=== PATIENT | female | born 1990 | race Caucasian/White ===

== ENCOUNTER 2017-08-21 17:08 | Emergency (ER) | payer OTHER ==
[2017-08-21 19:32] LABS: BEDSIDE GLUCOSE 60 MG/DL (70-105)
== END 2017-08-21 19:53 | disposition home or self-care (01) ==
LOC: M ED 17:08
DX: O9A.211 Injury, poisoning and certain other consequences of external causes complicating pregnancy, first trimester (principal); S39.011A Strain of muscle, fascia and tendon of abdomen, initial encounter; X50.0XXA Overexertion from strenuous movement or load, initial encounter; Y92.89 Other specified places as the place of occurrence of the external cause; O24.011 Pre-existing type 1 diabetes mellitus, in pregnancy, first trimester; Z3A.12 12 weeks gestation of pregnancy
CPT/HCPCS: 76801

== ENCOUNTER → 2017-09-05 | Outpatient (REF) | payer OTHER ==
[2017-09-05 23:53] LABS: CHLAMYDIA DNA AMPLIFICATION NEGATIVE (NEGATIVE); GC DNA AMPLIFICATION NEGATIVE (NEGATIVE)
== END ==
LOC: M LAB REF 17:05
DX: O24.011 Pre-existing type 1 diabetes mellitus, in pregnancy, first trimester (principal); Z3A.00 Weeks of gestation of pregnancy not specified

== ENCOUNTER 2019-09-09 11:20 | Emergency (ER) | payer OTHER ==
[~2019-09-09] VITALS: Ht 162.6 cm; Wt 74.1 kg
[~2019-09-09 11:20] MED LIST: AVEL1TAB2; FOLI400T5 PO; HUMULIN; NOVOLOG100 MG/ML; PREN1TAB11 PO; PREN200C PO; ZOFR4TAB14 PO
[2019-09-09 12:00] LABS: BASO # 0.1 10^3/uL (0.0-0.2); BASO % 0.4 % (0.0-1.0); HEMATOCRIT 44.7 % (36.0-47.0); HEMOGLOBIN 15.2 g/dl (12.0-15.5); LYMPH # 1.3 10^3/uL (1.5-5.0); MEAN CORPUSCULAR HEMOGLOBIN 28.9 pg (27.0-33.0); MONO # 0.5 10^3/uL (0.0-0.8); MONO % 2.2 % (0.0-5.0); NEUTROPHILS # 20.3 10^3/uL (1.5-8.5); NEUTROPHILS % 91.1 % (36.0-66.0); PLATELET COUNT, AUTOMATED 391 10^3/uL (150-450); RED BLOOD COUNT 5.26 10^6/uL (4.00-5.40); WHITE BLOOD COUNT 22.3 10^3/uL (4.0-10.0)
[2019-09-09] MEDS ORDERED: diphenhydrAMINE 50MG/ML VIAL (J1200) IV STA (12:12)
[2019-09-09] MEDS ORDERED: METOCLOPRAMIDE INJ 10MG/2ML VIAL (J2765 PER 1) IV ONE (12:15)
[2019-09-09] MEDS ORDERED: NS 1,000 ML IV ONE (12:15)
[2019-09-09 12:31] LABS: VENOUS BASE EXCESS -1.9 (-2.0-2.0); VENOUS HCO3 20.3 MEQ/L (23.0-27.0); VENOUS O2 SATURATION 93.3 % (60.0-80.0); VENOUS PARTIAL PRESSURE CO2 28.8 mmHg (38.0-50.0); VENOUS PARTIAL PRESSURE O2 59.1 mmHg (30.0-50.0); VENOUS PH 7.467 UNITS (7.330-7.430); VENOUS STANDARD HCO3 22.8 MEQ/L; VENOUS TOTAL CO2 21.2 MEQ/L (24.0-28.0)
--- NOTE | 2019-09-09 12:37 | REP ---
Clinical: Acute head injury . Comparison: None . Findings: The ventricles, sulci, and cisterns are normal in position and appearance. Garibay-white differentiation is maintained. No acute intracranial hemorrhage, mass/mass effect, pathology or trauma/injury. No evidence for acute infarction. No extra-axial fluid collection. Calvarium is intact. Paranasal sinuses and mastoid air cells are clear. Impression: Normal noncontrast head CT. No evidence for acute intracranial pathology or trauma/injury. Electronically Signed by Kevin Islas MD 09/09/2019 12:28 P
[2019-09-09 13:19] LABS: AMPHETAMINES LEVEL URINE NEGATIVE (NEGATIVE); BARBITURATES URINE NEGATIVE (NEGATIVE); BENZODIAZEPINES URINE NEGATIVE (NEGATIVE); CANNABINOIDS URINE POSITIVE (NEGATIVE); COCAINE METABOLITE URINE NEGATIVE (NEGATIVE); METHADONE URINE NEGATIVE (NEGATIVE); OPIATES URINE NEGATIVE (NEGATIVE); PHENCYCLIDINE URINE NEGATIVE (NEGATIVE)
[2019-09-09] MEDS ORDERED: KETOROLAC 30 MG/ML 1ML VIAL IV ONE (13:30)
[2019-09-09 14:46] VITALS: BP 115/69
--- NOTE | 2019-09-10 08:00 | ECGEPIP ---
[facility] - ED Test Date: 2019-09-09 Pat Name: HAYDEN ALEXANDER Department: Room: - Gender: Female [employer]: [facility] : 1990 Requested By: Favian Abdul Order Number: [id number] Reading MD: Cassie Brandon Measurements Intervals [place] Rate: 78 P: 24 FL: 129 QRS: 45 QRSD: 99 T: 36 QT: 414 QTc: 472 Interpretive Statements SINUS RHYTHM DELAYED R PROGRESSION No prior Electronically Signed on 09-10-2019 8:00:11 EDT by Cassie Brandon
== END 2019-09-09 15:14 | disposition home or self-care (01) ==
LOC: M ED 11:20
DX: E11.649 Type 2 diabetes mellitus with hypoglycemia without coma (principal); S09.90XA Unspecified injury of head, initial encounter; X58.XXXA Exposure to other specified factors, initial encounter; Y92.89 Other specified places as the place of occurrence of the external cause; Z79.4 Long term (current) use of insulin
CPT/HCPCS: 70450; 80047; 80307; 81001; 82803; 84702; 85025; 93005; 96361; 96374; 96375; 99284; J1200; J1885; J2765

== ENCOUNTER 2020-12-12 00:33 | Emergency (ER) | payer OTHER ==
[~2020-12-12] VITALS: Ht 162.6 cm; Wt 64.4 kg
[2020-12-12 00:34] VITALS: BP 143/84
--- OUTSIDE RECORDS SUMMARY | 2020-12-12 00:41 | CCD ---
Author Author [facility] Organization [facility] Address Unknown Phone Unavailable Care Team Providers Care Crematory Attendant Name Role Phone PERRY CASANOVA Unavailable Unavailable Venkata, J Kelly PACKAGE DRIER Unavailable Unavailable Venkata, J Kelly PACKAGE DRIER Unavailable Unavailable Venkata, J Kelly PACKAGE DRIER Unavailable Unavailable Venkata, J Kelly PACKAGE DRIER Unavailable Unavailable Venkata, J Kelly PACKAGE DRIER Unavailable Unavailable Venkata, J Kelly PACKAGE DRIER Unavailable Unavailable Venkata, J Kelly PACKAGE DRIER Unavailable Unavailable Venkata, J Kelly PACKAGE DRIER Unavailable Unavailable Venkata, J Kelly PACKAGE DRIER Unavailable Unavailable Venkata, J Kelly PACKAGE DRIER Unavailable Unavailable Venkata, J Kelly PACKAGE DRIER Unavailable Unavailable Venkata, J Kelly PACKAGE DRIER Unavailable Unavailable Venkata, J Kelly PACKAGE DRIER Unavailable Unavailable Venkata, J Kelly PACKAGE DRIER Unavailable Unavailable Venkata, J Kelly PACKAGE DRIER Unavailable Unavailable Venkata, J Kelly PACKAGE DRIER Unavailable Unavailable Venkata, J Kelly PACKAGE DRIER Unavailable Unavailable Venkata, J Kelly PACKAGE DRIER Unavailable Unavailable Venkata, J Kelly PACKAGE DRIER Unavailable Unavailable Venkata, J Kelly PACKAGE DRIER Unavailable Unavailable Venkata, J Kelly PACKAGE DRIER Unavailable Unavailable Venkata, J Kelly PACKAGE DRIER Unavailable Unavailable Venkata, J Kelly PACKAGE DRIER Unavailable Unavailable Venkata, J Kelly PACKAGE DRIER Unavailable Unavailable Venkata, J Kelly PACKAGE DRIER Unavailable Unavailable Venkata, J Kelly PACKAGE DRIER Unavailable Unavailable Venkata, J Kelly PACKAGE DRIER Unavailable Unavailable Venkata, J Kelly PACKAGE DRIER Unavailable Unavailable Venkata, J Kelly PACKAGE DRIER Unavailable Unavailable Venkata, J Kelly PACKAGE DRIER Unavailable Unavailable Venkata, J Kelly PACKAGE DRIER Unavailable Unavailable Venkata, J Kelly PACKAGE DRIER Unavailable Unavailable Venkata, J Kelly PACKAGE DRIER Unavailable Unavailable Venkata, J Kelly PACKAGE DRIER Unavailable Unavailable Venkata, J Kelly PACKAGE DRIER Unavailable Unavailable Venkata, J Kelly PACKAGE DRIER Unavailable Unavailable Venkata, J Kelly PACKAGE DRIER Unavailable Unavailable Venkata, J Kelly PACKAGE DRIER Unavailable Unavailable Venkata, J Kelly PACKAGE DRIER Unavailable Unavailable Venkata, J Kelly PACKAGE DRIER Unavailable Unavailable JuarezMaryannehi Unavailable Unavailable JuarezMaryannehi Unavailable Unavailable Ingris Pizarro MD Unavailable Unavailable JuarezMaryannehi Unavailable Unavailable JuarezIngris MD Unavailable Unavailable Ingris Pizarro MD Unavailable Unavailable JuarezMaryannehi Unavailable Unavailable Ingris Pizarro MD Unavailable Unavailable JuarezMaryannehi Unavailable Unavailable JuarezIngris MD Unavailable Unavailable JuarezIngris MD Unavailable Unavailable JuarezMaryannehi Unavailable Unavailable JuarezIngris MD Unavailable Unavailable JuarezIngris MD Unavailable Unavailable JuarezMaryannehi Unavailable Unavailable JuarezIngris MD Unavailable Unavailable JuarezMaryannehi Unavailable Unavailable JuarezMaryannehi Unavailable Unavailable JuarezIngris MD Unavailable Unavailable JuarezIngris MD Unavailable Unavailable Juarez Ingris Unavailable Unavailable JuarezMaryannehi Unavailable Unavailable JuarezMaryannehi Unavailable Unavailable JuarezMaryannehi Unavailable Unavailable JuarezMaryannehi Unavailable Unavailable JuarezMaryannehi Unavailable Unavailable JuarezIngris MD Unavailable Unavailable JuarezMaryannehi Unavailable Unavailable JuarezMaryannehi Unavailable Unavailable Juarez, Ingris MD Unavailable Unavailable Juarez, Ingris MD Unavailable Unavailable Juarez, Ingris MD Unavailable Unavailable Juarez, Ingris MD Unavailable Unavailable Juarez, Ingris MD Unavailable Unavailable Juarez, Ingris MD Unavailable Unavailable Juarez, Ingris MD Unavailable Unavailable Juarez, Ingris MD Unavailable Unavailable Juarez, Ingris MD Unavailable Unavailable Juarez, Ingris MD Unavailable Unavailable Juarez, Ingris MD Unavailable Unavailable Juarez, Ingris MD Unavailable Unavailable Juarez, Ingris MD Unavailable Unavailable Juarez, Ingris MD Unavailable Unavailable Juarez, Ingris MD Unavailable Unavailable Juarez, Ingris MD Unavailable Unavailable Re-disclosure Warning The records that you are about to access may contain information from federally-assisted alcohol or drug abuse programs. If such information is present, then the following federally mandated warning applies: This information has been disclosed to you from records protected by federal confidentiality rules (42 CFR part 2). The federal rules prohibit you from making any further disclosure of this information unless further disclosure is expressly permitted by the written consent of the person to whom it pertains or as otherwise permitted by 42 CFR part 2. A general authorization for the release of medical or other information is NOT sufficient for this purpose. The Federal rules restrict any use of the information to criminally investigate or prosecute any alcohol or drug abuse patient.The records that you are about to access may contain highly sensitive health information, the redisclosure of which is protected by Article 27-F of the [facility] Public Health law. If you continue you may have access to information: Regarding HIV / AIDS; Provided by facilities licensed or operated by the [facility] Office of Mental Health; or Provided by the [facility] Office for People With Developmental Disabilities. If such information is present, then the following [facility] mandated warning applies: This information has been disclosed to you from confidential records which are protected by state law. State law prohibits you from making any further disclosure of this information without the specific written consent of the person to whom it pertains, or as otherwise permitted by law. Any unauthorized further disclosure in violation of state law may result in a fine or nursing home sentence or both. A general authorization for the release of medical or other information is NOT sufficient authorization for further disc losure. Allergies and Adverse Reactions Type Description Substance Reaction Status Data Source(s ) Propensity to adverse reactions NO KNOWN ALLERGIES NO KNOWN ALLERGIES [facility] Family History Family Member Name Family Member Gender Family Member Status Date o f Status Description Data Source(s) Unknown Female Problem [facility] ([facility]) Encounters Encounter Providers Location Date Indications Data Source(s ) [place] [address] [place] [address] 11/14/2020 12:00:00 AM EDT eCW1 ([facility]) Outpatient Attender: Kelly Hastings NP 10/12/2020 12:00:00 AM [facility] Outpatient Attender: Kelly Hastings NP [id number] 08/2020 12:00:00 AM EDT - 06/24/2020 10:20:08 AM EDT Type 1 diabetes mellitus with hyperglycemia [facility] Type 1 diabetes mellitus with hyperglyce eloisa Outpatient Attender: Kelly Hastings NP 04/22/2020 12:00:00 AM [facility] Outpatient Attender: Kelly Hastings NP 04/19/2020 12:00:00 AM [facility] Outpatient Attender: PERRY Saucedaender: Ingris Pizarro MD 12/21/2019 12:00:00 AM [facility] Outpatient Attender: Kelyl Hastings NP 12/16/2019 12:00:00 AM [facility] Medications Medication Brand Name Start Date Product Form Dose Route Admi nistrative Instructions Pharmacy Instructions Status Indications Reaction Description Data Source(s) Clobetasol Propionate 0.5 MG/ML Topical Cream Clobetas ol Propionate 0.05 % Clobetasol Propionate 0.05 % 11/14/2020 12:00:00 AM EDT 1.0 {applicat ion} active Clobetasol Propionate 0.05 % eCW1 ([facility]) Contour Next Test In Vitro Strip (glucose blood) [id number] 5 06/24/2020 12:00:00 AM EDT active Type 1 diabetes mellitus with hyperglycemia Use as directed to check blood glucose 6 times daily. Dx E10.65 [facility] Type 1 diabetes mellitus with hyperglyce eloisa Pen Thorndike 31G X 5 MM [id number] 06/24/2020 12:00:00 AM EDT 1 {each} Does not apply active Type 1 diabetes mellitus with hyperg lycemia 1 each by Does not apply route nightly Use as directed once daily with basaglar injection incase of pump failure. Dx E10.65 [facility] Type 1 diabetes mellitus with hyperglyce eloisa Acetone (Urine) Test In Vitro Strip [id number] 06/24/2020 12:00:00 AM EDT active Type 1 diabetes mellitus with hyperglycemia Ketostix. Check urine ketones when glucose above 250 mg/dl for two tests in a row and/or with illness. MDD:10. Dx code: E10.65 [facility] Type 1 diabetes mellitus with hyperglyce eloisa BD Insulin Syringe U/F 30G X 1/2" 0.5 ML (Insulin Syri nge-Needle U-100) [id number] 06/24/2020 12:00:00 AM EDT a ctive Type 1 diabetes mellitus with hyperglycemia Use as directed. USE DIRECTED FOUR TI MES A DAY [facility] Type 1 diabetes mellitus with hyperglyce eloisa Insulin Lispro 100 UNT/ML Injectable Tresa ution Insulin Lispro 100 UNIT/ML Subcutaneous Solution (Admelog) Insulin Lispro 100 UNIT/ML Subcutaneous Solution (Admelog) 05/03/2020 12:00:00 AM EDT [facility] Type 1 diabetes mellitus with hyperglycemia Subq continual infusion via insuiln pump. Max Daily Dose inclusive of priming and titration: 80 units. Dx code:E10.65 [facility] Type 1 diabetes mellitus with hyperglyce eloisa Contour Next Test In Vitro Strip (glucose blood) [id number] 5 05/03/2020 12:00:00 AM EDT aborted Type 1 diabetes mellitus with hyperglycemia Use as directed to check blood glucose 6 times daily. Dx E10.65 [facility] Type 1 diabetes mellitus with hyperglyce eloisa Basaglar KwikPen 100 UNIT/ML Subcutaneou s Solution Pen-injector (insulin glargine) [id number] 05/03/2020 12:00:00 AM EDT active Type 1 diabetes mellitus with hyperglycemia In case of pump f ailure, inject 35 units into skin nightly. MDD 60 units with titration and priming. Dx:E10.65 [facility] Type 1 diabetes mellitus with hyperglyce eloisa Lancets 30G [id number] 04/26/2020 12:00:00 AM EST active Type 1 diabetes mellitus with hyperglycemia Use as directed. Use as directed to test 6 times daily. Dx: E10.65. [facility] Type 1 diabetes mellitus with hyperglyce eloisa BD Insulin Syringe U/F 30G X 1/2" 0.5 ML (Insulin Syri nge-Needle U-100) [id number] 04/26/2020 12:00:00 AM EST memo borted Type 1 diabetes mellitus with hyperglycemia USE DIRECTED FOUR TIMES A DAY [facility] Type 1 diabetes mellitus with hyperglyce eloisa Pen Thorndike 31G X 5 MM [id number] 11/24/2019 12:00:00 AM EDT 1 {each} Does not apply aborted Type 1 diabetes mellitus with hyperg lycemia 1 each by Does not apply route nightly Use as directed once daily with basaglar injection incase of pump failure. Dx E10.65 [facility] Type 1 diabetes mellitus with hyperglyce eloisa Acetone (Urine) Test In Vitro Strip [id number] 09/14/2019 12:00:00 AM EDT aborted Type 1 diabetes mellitus with hyperglycemia Ketostix. Check urine ketones when glucose above 250 mg/dl for two tests in a row and/or with illness. MDD:10. Dx code: E10.65 [facility] Type 1 diabetes mellitus with hyperglyce eloisa Insurance Providers Payer name Policy type / Coverage type Policy ID Covered republican ID Covered republican's relationship to mendoza Policy Mendoza Plan Information EXCELLUS I [id number] Self [id number] [facility] [id number] S [id number] [facility] [id number] S [id number] [facility] [id number] S [id number] [facility] DAHLIA [id number] S [id number] [facility] [id number] S [id number] [facility] [id number] S [id number] [facility] [id number] S [id number] [facility] [id number] S [id number] [facility] [id number] S [id number] [facility] [id number] S [id number] [facility] I [id number] Self [id number] [facility] COMMUNITY PLAN [id number] SP [id number] BLUE CROSS [id number] S [id number] MEDICAID GME W [id number] S [id number] [facility] COMM PLAN DAHLIA W [id number] S [id number] [facility] COMM PLAN DAHLIA W UNAVAILABLE S UNAVAILABLE BLUE CHOICE OPTN FHP O [id number] S [id number] UN COMMUNITY PLAN [id number] SP [id number] BLUE CROSS [id number] S [id number] [facility] COMMUNITY PLAN XIX [id number] 18 [id number] [facility] COMMUNITY PLAN XIX [id number] 18 [id number] MEDICAID GME [id number] S [id number] [facility] [id number] S [id number] [facility] COMMUNITY PLAN [facility] [id number] SP [id number] SELF PAY SP [facility] Community Plan Commercial [id number] Self [id number] [facility] Commercial [id number] Self [id number] [facility] Commercial [id number] Self SELF-PAY UNAVAILABLE UNAVAILA BLE BLUE CROSS [id number] S [id number] BLUE CROSS [id number] S [id number] BLUE CROSS [id number] S [id number] [employer] [id number] S [id number] Problems, Conditions, and Diagnoses Code Display Name Description Problem Type Effective Dates Data Source(s) R21 Rash and other nonspecific skin eruption Rash and other nonspecific skin eruption Diagnosis 06/24/2020 09:13:01 AM EDT [facility] 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) Problem 11/14/2020 12:00:00 AM EDT eCW1 ([facility]) Surgeries/Procedures No Information Results ID Date Data Source [id number] 06/24/2020 10:11:55 AM EDT [facility] Name Value Range Interpretation Code Description Data Lety rce(s) Supporting Document(s) Progress Note [facility] EIGHPf1rHrFFJpCg41/YPLjvMBRfc1EbWAhyVZq4AFpfHDAyS1ZtBZB7gV5oVFU1PWuZAkQxOiInYUY1 lbm [file] /zMp7VlHvdvlY89GL/JZDa+t2Tth05yDwPteF5jGGo6J+5Bwq9+r3AlvMX7F/José Miguel+wwav7aqVQUbvdr1 [file] ICAgICAgICAgICAgICAgICAgICAgICAgICAgICAgIC AgICAgICAgICAgICAgICAgDQogICAgICAgICAgICAgICAgICAgICAgICAgICAgICAgICAgICAgICAgIC AgICAgICAgICAgICAgICAgICAgICAgICAgICAgICAgICAgICAgICAgICAgICAgICAgICAgICAgICAgDQ ogICAgICAgICAgICAgICAgICAgICAgICAgICAgICAg ICAgICAgICAgICAgICAgICAgICAgICAgICAgICAgICAgICAgICAgICAgICAgICAgICAgICAgICAgICAg ICAgICAgICAgDQogICAgICAgICAgICAgICAgICAgICAgICAgICAgICAgICAgICAgICAgICAgICAgICAg ICAgICAgICAgICAgICAgICAgICAgICAgICAgICAgIC AgICAgICAgICAgICAgICAgICAgDQogICAgICAgICAgICAgICAgICAgICAgICAgICAgICAgICAgICAgIC AgICAgICAgICAgICAgICAgICAgICAgICAgICAgICAgICAgICAgICAgICAgICAgICAgICAgICAgICAgIC AgDQogICAgICAgICAgICAgICAgICAgICAgICAgICAg ICAgICAgICAgICAgICAgICAgICAgICAgICAgICAgICAgICAgICAgICAgICAgICAgICAgICAgICAgICAg ICAgICAgICAgICAgDQogICAgICAgICAgICAgICAgICAgICAgICAgICAgICAgICAgICAgICAgICAgICAg ICAgICAgICAgICAgICAgICAgICAgICAgICAgICAgIC AgICAgICAgICAgICAgICAgICAgICAgDQogICAgICAgICAgICAgICAgICAgICAgICAgICAgICAgICAgIC AgICAgICAgICAgICAgICAgICAgICAgICAgICAgICAgICAgICAgICAgICAgICAgICAgICAgICAgICAgIC AgICAgDQogICAgICAgICAgICAgICAgICAgICAgICAg ICAgICAgICAgICAgICAgICAgICAgICAgICAgICAgICAgICAgICAgICAgICAgICAgICAgICAgICAgICAg ICAgICAgICAgICAgICAgDQogICAgICAgICAgICAgICAgICAgICAgICAgICAgICAgICAgICAgICAgICAg ICAgICAgICAgICAgICAgICAgICAgICAgICAgICAgIC NwTSIoYJDeUAMjZYEqKRKtNMQdTWWaZHIySDt2M8wpMYCkJAYwMY0jBOs0Kh1+JQhKTcEzVBK5nhLziL 5NOL8yq9CjSYlnCECir3BxXLi0NW9LZUXlUVahLW8WPDhtmu0REWRkHKUnaXEQr4rkSoZqGJH8IXZeBt wwSV0MNHLhQ0mwzxOvJAUeQOWOGG4NUnMcX3JopK96 IDENCj4+VJyudbXyGyhXDxAkYGAmd1JvQGk5VE8MVJJaSmwsq1QkJiAgIMSJGWmhWP0QLFX9TZNdIQDq Mb2KKENcK969gzIyCR8UNo2QIvGlXT1jmn9EDfJgRNJrAljONpo9XWchDQ5IiFHqHNvSpk9txgJbvuTA e9FskzSbnJRDgKEnVF6yB4QoZWz9TSxyRJPBMJG8JW TsSb8aLXQxJFY9UgFeSCEAIQ7XSCHqECRksWMdBIOiYCFSYK3CAUuyCIL6EOHpsyXmjADpRMjzPH4GNY JlbnQgMjIgMCBSDQo+Zr4PTH4xc0TaDZrhEEOgRT0jhm3ZAJsTHqSlA8Q2sEEdB1I8LEdqUc6OPIKhLT DoJgAtYXMJOZtcGO6URR4dljD5ZS8RsSTfFSLdFBCa jHFtGQo5T77xaOSlMXezZH1CESR+Gustavo+Xf9CHAEwRORoIVIhOhNeLWLFMzNiR4CqE0MQe5VfD7ZbSQ49 hYlsigJfGFplBO7GIG6uNOZhUZEBDC2HzWXduO6umtJtKsSuLHWWGkJsS27zjJOwKHAsFIUnNEFmBt8X FTRlL4NptpZxyChxbzMaWYEhWUDACU8BPAwrxkDqaY FhpEthXK61mDeiRJ3LSo2SYwOlYP9ouy6YlVLeLu3UTHRvKS6ROQIaDMNwIWHnEKX0CXLaRhOrRJibCB FrWTPjEVV6HSTtYIVlNU7LFtSiDYMwTcCrAKOpUIPiZHJxtc7BXTYyENMhHCjcIJVgZKIoJVJwJTmrUO UjXMWoYXX3ZJXjAPPuNR3GJfZiFLXnNSJ6FmDbDEJk LERrbv5JSXDmSURdVaufBFWlFCNfEJAoBKsxWVBoTYV0IdntYQLpEBDiYZ4DIuHpOGUcBAR2OWyxCOVy PDJbgp4COIVyJCHuKGR3FIBxVXDfJBRqPJynWVScNTF3KAG4IRFhZRPtJF6CPeLaCZGgPBLqLiyqEEGd ZXSlkm8YGFEuCGGkBcFnMdPhMXNfMOWuCTkzHVKiQP G7MaarQWGkVPJiQC9IRvZyQHVfBYotPIveAVXuDNNkny9EEPSmHKJsMXS2MeMjWSZwGPQsIVvnTFEiBR N7RZU3YUDiVQOnLD4WCaWsDSUtFPs6ZDGzSYTnCCLqja2QTWQgEDGqONUmWkRyNHPbKKQeQWwgPEVyNJ Q5UXH8SLLwJAPxXT0ZSpBqJRLqZPh9VhwcCWUpXSEd au3MYALwFAXkXKE7NPYsFUKcOQWeXBkiCYUgSPIlZZSoISVhWBItAE8SKuZjMIStLeS1FFJbXABzPSSa az6ONMEkFDJxYaM4KmKaIVGaCKRdKJo4svYnpTYbDRl4IO3ME2WwwlVmRpQZUv4Fu834ZVM6NRJjEc3U N0qaRe4kYAEcWWROEa0UZUc2MmWpTSV3GnJ2KrEkKt KiX6H7CtDvMHL2XKNxOUexZZo+PAyeRXV0ODdlWPbkOOJhWnA7PHgzNSJ7CnlaQDC9QDB3OJ3hQIOKGs 4+IUtseUVjfEbqVVPOKgRhDrg5XDcsVSUWFd4H ID Date Data Source [id number] 06/24/2020 10:11:49 AM EDT [facility] Name Value Range Interpretation Code Description Data Lety rce(s) Supporting Document(s) Progress Note [facility] SWNLQg3cPoZROnXk17/LTZazILIdn7BzVBwrNFa5DDmiTXScK2VuWGL0zW4jAPB1OFgFXkOcGiSvRLV1 lbm [file] ICAgICAgICAgICAgICAgICAgICAgICAgICAgICAgICAgICAgICAgICAgICAgICAgICAgICAgICAgICAg ICAgICAgICAgICAgICAgICAgICAgICAgICAgICAgIC AgDQogICAgICAgICAgICAgICAgICAgICAgICAgICAgICAgICAgICAgICAgICAgICAgICAgICAgICAgIC AgICAgICAgICAgICAgICAgICAgICAgICAgICAgICAgICAgICAgICAgICAgDQogICAgICAgICAgICAgIC AgICAgICAgICAgICAgICAgICAgICAgICAgICAgICAg ICAgICAgICAgICAgICAgICAgICAgICAgICAgICAgICAgICAgICAgICAgICAgICAgICAgICAgDQogICAg ICAgICAgICAgICAgICAgICAgICAgICAgICAgICAgICAgICAgICAgICAgICAgICAgICAgICAgICAgICAg ICAgICAgICAgICAgICAgICAgICAgICAgICAgICAgIC AgICAgDQogICAgICAgICAgICAgICAgICAgICAgICAgICAgICAgICAgICAgICAgICAgICAgICAgICAgIC AgICAgICAgICAgICAgICAgICAgICAgICAgICAgICAgICAgICAgICAgICAgICAgDQogICAgICAgICAgIC AgICAgICAgICAgICAgICAgICAgICAgICAgICAgICAg ICAgICAgICAgICAgICAgICAgICAgICAgICAgICAgICAgICAgICAgICAgICAgICAgICAgICAgICAgDQog ICAgICAgICAgICAgICAgICAgICAgICAgICAgICAgICAgICAgICAgICAgICAgICAgICAgICAgICAgICAg ICAgICAgICAgICAgICAgICAgICAgICAgICAgICAgIC AgICAgICAgDQogICAgICAgICAgICAgICAgICAgICAgICAgICAgICAgICAgICAgICAgICAgICAgICAgIC AgICAgICAgICAgICAgICAgICAgICAgICAgICAgICAgICAgICAgICAgICAgICAgICAgDQogICAgICAgIC AgICAgICAgICAgICAgICAgICAgICAgICAgICAgICAg ICAgICAgICAgICAgICAgICAgICAgICAgICAgICAgICAgICAgICAgICAgICAgICAgICAgICAgICAgICAg DQogICAgICAgICAgICAgICAgICAgICAgICAgICAgICAgICAgICAgICAgICAgICAgICAgICAgICAgICAg ICAgICAgICAgICAgICAgICAgICAgICAgICAgICAgIC WlCNKqTHYqWGZuYBx5Q3wpHSPwECWqMA0tYRv3Bc1+HJyRAfYwCPG1agUogN2XFA4ze4FmMVstMUXif8 NuJEa9KV1XDUYnXCipRD6GAQtzmh8OVNSoAPVqhRNZu1ynArVkXPW1WDHbNzjyEE6EZANdA1akqmBbRL UgMCBSIDcgMCBSIDkgMCBSIDExIDAgUiAxMyAwIFIg LZFuHHLGFL3ZLcSnC6XdkG92SBZGHe1+DWauqlWbYcsGUuIoYFErb2LxSYa2ZF3GDHHvBlxgu2YtKqVy UQWRSNubDT5HVPE3EOAjJZHeZe2IQMQtI246yeMdIA6MIa2XAfGqXR2ptg0VQjXkOBYuJlzFZob1OGet KW6ZlHHfBVuGie0xhyYzugDGm6SgvaPkuEOTFAPaHL NDWIWxqXizrY4pNFDELVRvuIC3GohpZhInOGCxCUgeSDFFKLsKOtWgH6Fxe2TnYdK6ICByGhYjAEcaBR BjBeN5KD27vFbyGU0IGGOcWWMgYO33OTUaZSNdKb1IDb2KCwYoQQ7qvc9ASsQlYNEzFkpGNnq3VCdySJ 9RbWBkD9LwjAMmv2qGGbWlN8ARZDYqWMLdCm3OFEXn JmCpTOHaVEkiDH5sBXMiCMEPuDvhigK7XS2VTY3ffxFiXD0OSsWpOw4uVs4CRbMmZ2UaO4QaRNXsQWJQ DYfeIQ2UQUtmBE4lFY7Py3MDsUGfsV9fub8WNUVhNVWuMixsap6ZWtquP0S7gEmeQDUgXuPyZZVCCWea ES2MHGXxDOP0SXJpBWKyPYZNIjEeF16tQL9QV4Cgs9 3vXmF8RBIvXxFrAYseRK78uLnbfxJqnOKxcVkhIL4TGn4+DQplbmRvYmoNCnhyZWYNCjAgMzUNCjAwMD HgQCUjXNCyTyK3NjMpOw3IKEQwEJPuSOVaKhXkMUGnLLSxQNlgEDVxEYJrSnG8YONgKNDsXX3DPkTyAT YrPpAkQJCtOPRlEDMipn7FPLGeAIQrHXO0NfZkQGRa SHCuUHszQCDkEEIvFJWgYIElNUNnGH5ZKrUkATXyWJL8JlhsMJJnKKSqtc5SYDIiNVWcBhZ7OMIdMIZb KZXvJPvcPIZpZPJ0NNMpKAVmDROhVW0JRkYgBXIiPGv7JQSaPRVuDFNqms9SYDAwUMTxPTw3LRLkOOLh HBFgJLzoFTBlAFHoIoraNJHiVSDjSH2NBdFzYNRcSY L4JwAoGFLxRAAwjh5JFNFbHLMkVEdfTDZjSTGhLBEpDOakFMVuTGR2SSB2EIZbIHGqWP0OIaXpDROkIV wzExFkXXLfHHUrpl4DKMOySFYqEsYbCEGgMKQdNTPfXFlaOFBpVCG1QUl5KFYdQJJqZS4BFoUdOYVlSW mkCHOyAZRiRGGlkx1XWJJmMUEhKMY0XQJyRFPkCPZb QDafOJAuWVS2GWO3AQWgEPDfMK7CIxHuQRVwURn5JsebMODvQMHxoj5MMBSxRNRwLRkoAnCpCANpWMDq RQpoMPXzWHYgQoJ7RSHnDWZiWA0UQjWgWMHqBpQ6UVWbNSYyVGQayf1XKPJtJZWxUJg8UQIbGKCnKRXh ZGrxJJMoHWCpDUCfIXYxOQCwWJ0CTkMjXAPeJxTcQA mjIUAhPRJgxq0ZNOFiERWdVuWpOQUgCDBsBREgKUcxKFEsOMVeMQY1IRDoZUTqWD7GQmTiHWXwCiM6YV hoZEFlIPBygi6EUGRrQCVqKACxRDHmHAZeTDJxKXkiCJLwABP6VRr3ZBNcNPJaLG1TSsJjQVPfYfB8VB OfYZSjXRAnyd7LTMPwVSBdBHahUvJqYEGcZHDxOHu7 idZztAZhLIe5PF3VM6XlekHyFhIDBe1Fg683ADH4UAFhVb2JO4rrKe9bJUAwOFJUIg2QLDc9HjPaOiKg ChSpQVJvRpNzLZZuMqy7UMSrTRZ5LgQiSjC+EQxkYNUwTcA0AzD6I0UkZEX2BBSpKWY0LnG0TwLeQEI3 Lh1pUTFJYl5+SZawcBVyvFteIMLMJgA7NFXkYKyrQHPAMz0P Procedure Social History Code Duration Value Status Description Data Source(s ) Smoking 11/14/2020 12:00:00 AM EDT Current Smoker completed [place] nt Smoker eCW1 ([facility]) Alcohol intake 06/24/2020 12:00:00 AM EDT Current non-d scot of alcohol (finding) completed Current non-drinker of alcohol (finding) [facility] Tobacco use and exposure 06/24/2020 12:00:00 AM EDT Never used co mpleted Never used [facility] Smoking 06/24/2020 12:00:00 AM EDT Never smoker completed Never s [facility] Vital Signs ID Date Data Source UNK Name Value Range Interpretation Code Description Data Source(s) Body weight 132 [lb_av] 132 [lb_av] eCW1 ([facility]) Body weight 59.87 kg 59.87 kg eCW1 ([facility]) Body height 64 [in_i] 64 [in_i] eCW1 ([facility]) Body mass index (BMI) [Ratio] 22.66 kg/m2 22.66 kg/m2 eCW1 ([facility]) Systolic blood pressure 118 mm[Hg] 118 mm[Hg] e CW1 ([facility]) Diastolic blood pressure 68 mm[Hg] 68 mm[Hg] eCW1 ([facility]) Patient Treatment Plan of Care Planned Activity Planned Date Details Description Data Source (s) Clobetasol Propionate 0.5 MG/ML Topical Cream 11/14/2020 12:00:00 A M EDT eCW1 ([facility]) BD Insulin Syringe U/F 30G X 1/2" 0.5 ML (Insulin Syri nge-Needle U-100) 06/24/2020 12:00:00 AM [facility] Pen Thorndike 31G X 5 MM 06/24/2020 12:00:00 AM [facility] Contour Next Test In Vitro Strip (glucose blood) 06/24/2020 12:00:0 0 AM [facility] Acetone (Urine) Test In Vitro Strip 06/24/2020 12:00:00 AM [facility] Contour Next Test In Vitro Strip (glucose blood) 05/03/2020 12:00:0 0 AM [facility] Insulin Lispro 100 UNT/ML Injectable Solution 05/03/2020 12:00:00 A M [facility] Basaglar KwikPen 100 UNIT/ML Subcutaneou s Solution Pen-injector (insulin glargine) 05/03/2020 12:00:00 AM EDT [facility] Lancets 30G 04/26/2020 12:00:00 AM EST [facility] BD Insulin Syringe U/F 30G X 1/2" 0.5 ML (Insulin Syri nge-Needle U-100) 04/26/2020 12:00:00 AM [facility] Pen [place] 31G X 5 MM 11/24/2019 12:00:00 AM [facility] Acetone (Urine) Test In Vitro Strip 09/14/2019 12:00:00 [facility]
--- OUTSIDE RECORDS SUMMARY | 2020-12-12 00:41 | CCD ---
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 32180507 ALLERGIES No Known Allergies ENCOUNTERS from 1990 to 2020-11-28 Encounter Location Date Provider Diagnosis [facility] Dermatology [address] [place] [address] [place] [address] Oct, Bettina Paulinecb NLD (necrobiosis lipoidica d iabeticorum) E11.620 IMMUNIZATIONS No Information SOCIAL HISTORY Tobacco Use: Social History Observation Description Date Details (start date - stop date) Current Smoker Sex Assigned At : Social History Observation Description Sex Assigned At Unknown Tobacco Use: Question Answer Notes Are you a: current smoker REASON FOR REFERRAL No Information VITAL SIGNS Weight 132 lbs Oct, Weight-kg 59.87 kg Oct, Height 64 in Oct, BMI 22.66 kg/m2 Oct, Blood pressure systolic 118 mm Hg Oct, Blood pressure diastolic 68 mm Hg Oct, MEDICATIONS Medication SIG (Take, Route, Frequency, Duration) Notes Start Da te End Date Status Basaglar KwikPen 100 UNIT/ML as directed Subcutaneous Active Clobetasol Propionate 0.05 % 1 application Externally Twice a day to lower legs for 14 days Oct, Active Admelog 100 UNIT/ML as directed Subcutaneous Active PROCEDURES No Information RESULTS No Results REASON FOR VISIT SKIN CHANGES TO LOWER EXTREMITIES MEDICAL (GENERAL) HISTORY Type Description Date Medical History diabetic type 1 Medical History anxiety Surgical History No Surgical history information Goals Section No Information Health Concerns No Information MEDICAL EQUIPMENT No Information MENTAL STATUS No Information FUNCTIONAL STATUS No Information ASSESSMENTS Encounter Date Diagnosis Assessment Notes Treatment Notes Treatm ent Clinical Notes Oct, NLD (necrobiosis lipoidica diabeticorum) (ICD-10 - E11.620) Advised patient that overusing topical steroids can lead to thinning of the skin, stretch saavedra, acne, possible lightening of the skin pigmentation and significant systemic absorption which can be dangerous. Described the proper way to apply and how to use correctly to minimize risk of side effects. Warned to avoid application on the thin skin of the face and groin unless specifically instructed to do so. PLAN OF TREATMENT Medication Medication Name Sig Start Date Stop Date Clobetasol Propionate 0.05 % 1 application Externally Twice a day to lower legs for 14 days Oct, Treatment Notes Assessment Notes Clinical Notes NLD (necrobiosis lipoidica diabeticorum) Advised patient that overusing topical steroids can lead to thinning of the skin, stretch saavedra, acne, possible lightening of the skin pigmentation and significant systemic absorption which can be dangerous. Described the proper way to apply and how to use correctly to minimize risk of side effects. Warned to avoid application on the thin skin of the face and groin unless specifically instructed to do so. Next Appt Details 3 Weeks Reason:NLD F/U Provider Name:Bettina Melara, 11:45:00 AM, [address] [place] [address], [place], [place], [facility], Follow Up:3 WeeksNLD F/U Insurance Providers Payer Name Payer Address Payer Phone Insured Name Patient Relati onship to Insured Coverage Start Date Coverage End Date [facility] [employer] [facility] [address] [facility] [phone] HAYDEN ALEXANDER
[2020-12-12] MEDS ORDERED: ADME100I SC (00:46)
[2020-12-12] MEDS ORDERED: BASA100I SC (00:46)
--- OUTSIDE RECORDS SUMMARY | 2020-12-12 03:36 | CCD ---
Author Author [facility] Organization [facility] Address Unknown Phone Unavailable Care Team Providers Care Engineering Executive Name Role Phone PERRY CASANOVA Unavailable Unavailable Venkata, J Kelly CLOTHING PATTERNMAKER Unavailable Unavailable Venkata, J Kelly CLOTHING PATTERNMAKER Unavailable Unavailable Venkata, J Kelly CLOTHING PATTERNMAKER Unavailable Unavailable Venkata, J Kelly CLOTHING PATTERNMAKER Unavailable Unavailable Venkata, J Kelly CLOTHING PATTERNMAKER Unavailable Unavailable Venkata, J Kelly CLOTHING PATTERNMAKER Unavailable Unavailable Venkata, J Kelly CLOTHING PATTERNMAKER Unavailable Unavailable Venkata, J Kelly CLOTHING PATTERNMAKER Unavailable Unavailable Venkata, J Kelly CLOTHING PATTERNMAKER Unavailable Unavailable Venkata, J Kelly CLOTHING PATTERNMAKER Unavailable Unavailable Venkata, J Kelly CLOTHING PATTERNMAKER Unavailable Unavailable Venkata, J Kelly CLOTHING PATTERNMAKER Unavailable Unavailable Venkata, J Kelly CLOTHING PATTERNMAKER Unavailable Unavailable Venkata, J Kelly CLOTHING PATTERNMAKER Unavailable Unavailable Venkata, J Kelly CLOTHING PATTERNMAKER Unavailable Unavailable Venkata, J Kelly CLOTHING PATTERNMAKER Unavailable Unavailable Venkata, J Kelly CLOTHING PATTERNMAKER Unavailable Unavailable Venkata, J Kelly CLOTHING PATTERNMAKER Unavailable Unavailable Venkata, J Kelly CLOTHING PATTERNMAKER Unavailable Unavailable Venkata, J Kelly CLOTHING PATTERNMAKER Unavailable Unavailable Venkata, J Kelly CLOTHING PATTERNMAKER Unavailable Unavailable Venkata, J Kelly CLOTHING PATTERNMAKER Unavailable Unavailable Venkata, J Kelly CLOTHING PATTERNMAKER Unavailable Unavailable Venkata, J Kelly CLOTHING PATTERNMAKER Unavailable Unavailable Venkata, J Kelly CLOTHING PATTERNMAKER Unavailable Unavailable Venkata, J Kelly CLOTHING PATTERNMAKER Unavailable Unavailable Venkata, J Kelly CLOTHING PATTERNMAKER Unavailable Unavailable Venkata, J Kelly CLOTHING PATTERNMAKER Unavailable Unavailable Venkata, J Kelly CLOTHING PATTERNMAKER Unavailable Unavailable Venkata, J Kelly CLOTHING PATTERNMAKER Unavailable Unavailable Venkata, J Kelly CLOTHING PATTERNMAKER Unavailable Unavailable Venkata, J Kelly CLOTHING PATTERNMAKER Unavailable Unavailable Venkata, J Kelly CLOTHING PATTERNMAKER Unavailable Unavailable Venkata, J Kelly CLOTHING PATTERNMAKER Unavailable Unavailable Venkata, J Kelly CLOTHING PATTERNMAKER Unavailable Unavailable Venkata, J Kelly CLOTHING PATTERNMAKER Unavailable Unavailable Venkata, J Kelly CLOTHING PATTERNMAKER Unavailable Unavailable Venkata, J Kelly CLOTHING PATTERNMAKER Unavailable Unavailable Venkata, J Kelly CLOTHING PATTERNMAKER Unavailable Unavailable Venkata, J Kelly CLOTHING PATTERNMAKER Unavailable Unavailable JuarezMaryannehi Unavailable Unavailable JuarezMaryannehi Unavailable [...] is protected by Article 27-F of the [facility] Public Health law. If you continue you may have access to information: Regarding HIV / AIDS; Provided by facilities licensed or operated by the [facility] Office of Mental Health; or Provided by the [facility] Office for People With Developmental Disabilities. If such information is present, then the following [facility] mandated warning applies: This information has been [...] law may result in a fine or correction sentence or both. A general authorization for [...] Date Indications Data Source(s ) Out[place] [address] [facility] [address] 11/14/2020 12:00:00 AM EDT eCW1 ([facility]) Outpatient Attender: Kelly Hastings NP 10/12/2020 12:00:00 AM [facility] Outpatient Attender: Kelly Hastings NP [id number] 08/2020 12:00:00 AM EDT - 06/24/2020 10:20:08 AM EDT Type 1 diabetes mellitus with hyperglycemia [facility] Type 1 diabetes mellitus with hyperglyce eloisa Outpatient Attender: Kelly Hsatings NP 04/22/2020 12:00:00 AM [facility] Outpatient Attender: Kelly Hastings NP 04/19/2020 12:00:00 AM [facility] Outpatient Attender: PERRY Saucedaender: Ingris Pizarro MD 12/21/2019 12:00:00 AM [facility] Outpatient Attender: Kelly Hastings NP 12/16/2019 12:00:00 AM [facility] Medications Medication Brand Name Start Date Product Form Dose Route Admi nistrative Instructions Pharmacy Instructions Status Indications Reaction Description Data Source(s) Clobetasol Propionate 0.5 MG/ML Topical Cream Clobetas ol Propionate 0.05 % Clobetasol Propionate 0.05 % 11/14/2020 12:00:00 AM EDT 1.0 {applicat ion} active Clobetasol Propionate 0.05 % eCW1 ([facility]) Contour Next Test In Vitro Strip (glucose blood) 8084-7668-2 5 06/24/2020 12:00:00 AM EDT active Type 1 diabetes mellitus with hyperglycemia Use as directed to check blood glucose 6 times daily. Dx E10.65 [facility] Type 1 diabetes mellitus with hyperglyce eloisa Pen Newton 31G X 5 MM [id number] 06/24/2020 12:00:00 AM EDT 1 {each} Does not apply active Type 1 diabetes mellitus with hyperg lycemia 1 each by Does not apply route nightly Use as directed once daily with basaglar injection incase of pump failure. Dx E10.65 [facility] Type 1 diabetes mellitus with hyperglyce eloisa Acetone (Urine) Test In Vitro Strip 13355 06/24/2020 12:00:00 AM EDT active Type 1 diabetes mellitus with hyperglycemia Ketostix. Check urine ketones when glucose above 250 mg/dl for two tests in a row and/or with illness. MDD:10. Dx code: E10.65 [facility] Type 1 diabetes mellitus with hyperglyce eloisa BD Insulin Syringe U/F 30G X 1/2" 0.5 ML (Insulin Syri nge-Needle U-100) [id number] 06/24/2020 12:00:00 AM EDT a ctive Type 1 diabetes mellitus with hyperglycemia Use as directed. USE DIRECTED FOUR TI MES A DAY [facility] Type 1 diabetes mellitus with hyperglyce eloisa Insulin Lispro 100 UNT/ML Injectable Tresa ution Insulin Lispro 100 UNIT/ML Subcutaneous Solution (Admelog) Insulin Lispro 100 UNIT/ML Subcutaneous Solution (Admelog) 05/03/2020 12:00:00 AM EDT act ata Type 1 diabetes mellitus with hyperglycemia Subq continual infusion via insuiln pump. Max Daily Dose inclusive of priming and titration: 80 units. Dx code:E10.65 [facility] Type 1 diabetes mellitus with hyperglyce eloisa Contour Next Test In Vitro Strip (glucose blood) 3664-1639-2 5 05/03/2020 12:00:00 AM EDT aborted Type 1 diabetes mellitus with hyperglycemia Use as directed to check blood glucose 6 times daily. Dx E10.65 [facility] Type 1 diabetes mellitus with hyperglyce eloisa Basaglar KwikPen 100 UNIT/ML Subcutaneou s Solution Pen-injector (insulin glargine) [id number] 05/03/2020 12:00:00 AM EDT active Type 1 diabetes mellitus with hyperglycemia In case of pump f ailure, inject 35 units into skin nightly. MDD 60 units with titration and priming. Dx:E10.65 [facility] Type 1 diabetes mellitus with hyperglyce eloisa Lancets 30G [id number] 04/26/2020 12:00:00 AM EST active Type 1 diabetes mellitus with hyperglycemia Use as directed. Use as directed to test 6 times daily. Dx: E10.65. [facility] Type 1 diabetes mellitus with hyperglyce eloisa BD Insulin Syringe U/F 30G X 1/2" 0.5 ML (Insulin Syri nge-Needle U-100) [id number] 04/26/2020 12:00:00 AM EST memo borted Type 1 diabetes mellitus with hyperglycemia USE DIRECTED FOUR TIMES A DAY [facility] Type 1 diabetes mellitus with hyperglyce eloisa Pen [place] 31G X 5 MM [id number] 11/24/2019 12:00:00 AM EDT 1 {each} Does not apply aborted Type 1 diabetes mellitus with hyperg lycemia 1 each by Does not apply route nightly Use as directed once daily with basaglar injection incase of pump failure. Dx E10.65 [facility] Type 1 diabetes mellitus with hyperglyce eloisa Acetone (Urine) Test In Vitro Strip [id number] 09/14/2019 12:00:00 AM EDT aborted Type 1 diabetes mellitus with hyperglycemia Ketostix. Check urine ketones when glucose above 250 mg/dl for two tests in a row and/or with illness. MDD:10. Dx code: E10.65 [facility] Type 1 diabetes mellitus with hyperglyce eloisa Insurance Providers Payer name Policy type / Coverage type Policy ID Covered alliance party ID Covered alliance party's relationship to mendoza Policy Mendoza Plan Information EXCELLUS I [id number] Self [id number] [facility] [id number] S [id number] [facility] [id number] S [id number] [facility] [id number] S [id number] [facility] DAHLIA [id number] S [id number] [facility] [id number] S [id number] [facility] [id number] S [id number] [facility] [id number] S [id number] [facility] [id number] S [id number] [facility] [id number] S [id number] [facility] [id number] S [id number] [facility] I [id number] Self [id number] FORMERLY [facility] COMMUNITY PLAN [id number] SP [id number] BLUE CROSS [id number] S [id number] MEDICAID GME W [id number] S [id number] F [facility] COMM PLAN DAHLIA W [id number] S [id number] [facility] COMM PLAN DAHLIA W UNAVAILABLE S UNAVAILABLE BLUE CHOICE OPTN FHP O [id number] S [id number] [facility] COMMUNITY PLAN [id number] SP [id number] BLUE CROSS [id number] S [id number] [facility] COMMUNITY PLAN XIX [id number] 18 [id number] [facility]LY [facility] COMMUNITY PLAN XIX [id number] 18 [id number] MEDICAID GME [id number] S [id number] [facility] [id number] S [id number] [facility] COMMUNITY [facility]AN [facility] [id number] SP [id number] SELF PAY SP [facility] Community Plan Commercial [id number] Self [id number] [facility] Commercial [id number] Self [id number] [facility] Commercial [id number] Self SELF-PAY UNAVAILABLE UNAVAILA BLE BLUE CROSS [id number] S [id number] BLUE CROSS [id number] S [id number] BLUE CROSS [id number] S [id number] [employer] [id number] S [id number] Problems, Conditions, and Diagnoses Code Display Name Description Problem Type Effective Dates Data Source(s) R21 Rash and other nonspecific skin eruption Rash and other nonspecific skin eruption Diagnosis 06/24/2020 09:13:01 AM EDT [facility] E11.620 [id number] NLD (necrobiosis lipoidica diabeticorum) Problem 11/14/2020 12:00:00 AM EDT eCW1 ([facility]) Surgeries/Procedures No Information Results ID Date Data Source [id number] 06/24/2020 10:11:55 AM EDT [facility] Name Value Range Interpretation Code Description Data Lety rce(s) Supporting Document(s) Progress Note [facility] OVESQx2eFlMQJeDj75/APXfhZAOez4HkIWstYNb4BKvnLLBwX3UuVJQ1tS7gXCK9WKqERwSjAhXrOEE2 lbm [file] /vJf5SjRglsnC20UG/JZDa+r2Toe81mDoGdwM6aOSi6T+5Bwq9+v9FenLX8G/José Miguel+vffn6plLCEteqy3 [file] ICAgICAgICAgICAgICAgICAgICAgICAgICAgICAgIC AgICAgICAgICAgICAgICAgDQogICAgICAgICAgICAgICAgICAgICAgICAgICAgICAgICAgICAgICAgIC AgICAgICAgICAgICAgICAgICAgICAgICAgICAgICAgICAgICAgICAgICAgICAgICAgICAgICAgICAgDQ ogICAgICAgICAgICAgICAgICAgICAgICAgICAgICAg ICAgICAgICAgICAgICAgICAgICAgICAgICAgICAgICAgICAgICAgICAgICAgICAgICAgICAgICAgICAg ICAgICAgICAgDQogICAgICAgICAgICAgICAgICAgICAgICAgICAgICAgICAgICAgICAgICAgICAgICAg ICAgICAgICAgICAgICAgICAgICAgICAgICAgICAgIC AgICAgICAgICAgICAgICAgICAgDQogICAgICAgICAgICAgICAgICAgICAgICAgICAgICAgICAgICAgIC AgICAgICAgICAgICAgICAgICAgICAgICAgICAgICAgICAgICAgICAgICAgICAgICAgICAgICAgICAgIC AgDQogICAgICAgICAgICAgICAgICAgICAgICAgICAg ICAgICAgICAgICAgICAgICAgICAgICAgICAgICAgICAgICAgICAgICAgICAgICAgICAgICAgICAgICAg ICAgICAgICAgICAgDQogICAgICAgICAgICAgICAgICAgICAgICAgICAgICAgICAgICAgICAgICAgICAg ICAgICAgICAgICAgICAgICAgICAgICAgICAgICAgIC AgICAgICAgICAgICAgICAgICAgICAgDQogICAgICAgICAgICAgICAgICAgICAgICAgICAgICAgICAgIC AgICAgICAgICAgICAgICAgICAgICAgICAgICAgICAgICAgICAgICAgICAgICAgICAgICAgICAgICAgIC AgICAgDQogICAgICAgICAgICAgICAgICAgICAgICAg ICAgICAgICAgICAgICAgICAgICAgICAgICAgICAgICAgICAgICAgICAgICAgICAgICAgICAgICAgICAg ICAgICAgICAgICAgICAgDQogICAgICAgICAgICAgICAgICAgICAgICAgICAgICAgICAgICAgICAgICAg ICAgICAgICAgICAgICAgICAgICAgICAgICAgICAgIC NoDTChTLHcSJSbRVGoXLOuQDMcOTNeZKFcILl7I8aiQVBeJCZuYG4bBAg8Jv7+EFyVWsWxKDO9cpNaxA 6KPA3ub1ZpQRwfTTQzc8CzWFj6AR8TKUMbHStsHW0THHxgoi5PGHVpMPDdcTBEy8wdJwKdLSJ8MZUcCv xuYB2TQBMzD5pdinCpTFLrGGNMRK6YVkTjA6OnyP20 IDENCj4+HYbtuaOaUayPZwQyGNCux0RoQGe7QM2RPFYfCqxww7IdIrDgJPMKQLmwCA5OKBP7WCGsIDWf Mw0LGXHaA317wcEmSE9MWo8FNdQbQF5qee4NSpKqBFBnVsrNDvo4XOyiKD4QxNWmAGrSfo5ifbEyixTP b5FwgjZbzOLAqEFmVM9eP1SjFHy6ZOcoTIRMYQA9AF TzGv8oLKRaBUG8XpVeHGHOAR6EZLUgZULbkAPiVDBzIWJDRQ3KWEsvAYH7KGGfekEfgLQyHZezFV0JGM JlbnQgMjIgMCBSDQo+Lu7GNY7re5LcWIyiZXEpHP0ler5JAEeHLjUqT5T2jGNcM6R1YAjaJe6XUQOnXE JxSzTaYYRXFTgnGR8BAJ1flmJ7NM5XoUQpRIUgLYMa xXXhSBg1N61mjSEvLHvwRR7AZIX+Gustavo+Ln7MHWAjMOTyJFIyXpWcLWUMSeHpB2GyJ5LAh0DkH7ZqVO76 bWuqneLpLPcpLF9DUJ5pFJEvSMXJDC9MbRQemR7jcwMgJcQeLOBSQaZnL51hnJJkABEvCSVrQPWhKc8D YSPuJ8JeowCaaKmtcoCsLILmPHOCEP1MCXzogmVrtA GhuAzlVC37kSklNE7HIh1PXcCxDX2gtk5EiXGcLg5JRBLpIP8KQTZwJUApPLCgJQH1QGWdVgCnPHydSN OmYZXrJKU9YRIgGFXdAA2JIgFrBLWxLzWqBTTpNUZeCUHxsb9HRQFaNNSuPBizAHLfFNXzGQStCDxlFD FaECXcTWZ2GVCtOEEyQD1ADcRvWJKoKGU4PqHuGURl YZSgke7BQVPpATZrCxekNDOaOEOyOWKrHYunYEJwCXL9ClvqASImHIHcOG8DEyPoJXTxGJN0SCnaDCGj ESBuxd7BVIXgWJYkOMS3JGBnTFPhATKcZEioQJTdZQD7TTA8YCQfJSTfPW7LSiKeUBUyCZFhZeabFKCm XGLwdi7PRZBzPZVbFsMsFfZwZLAoOAKmVNbyQXNrJF A1WlftBAEvORCgHO5BNoPgXDXrWItxKTehGQAzQSIbec4AOMKwBCNoZRR2WwSmGFQnBLKsXDpqELGnQG R4IQX9WHKdEITyVV8SJmClNACyZMy1CBRpTBZvNDNcyp0KHJUdISTuWXGgLpExUZGhNCJpGBweEBRrKA L9YDK1OVPvTWCyFC2LOtWyOVMkFWa5WeusKQQmXNWi ja0QESHoRATmQIP2ROLgLOTlGXQzIHctTYWqRJVuYMRiRXNrBXRzQO1ACrLxAFLbNdC6FCBwQGTiHFQh tn8VKWElIPWbPzJ0AzChIKEgOTYpHYl6vzChsMDoOUp3ZQ4RA8GmhpAdJiMNAz5Sx717NZB2QDBjLi7W K5rhOz1rSNOvDOHWXo8WRYo7VmVqNME8LdH2NeRoGt EjA8N8ZkOxPBM9YVDvOTryYNq+FTnpSCC9VWahAXuhAKSlSaL0GYtmWJO6BqkpGSZ9HOF7OF5xBBOLEt 4+ORwegUMtgZfwAEYFRyJcNyh0SDfhTHDZYi8L ID Date Data Source [id number] 06/24/2020 10:11:49 AM EDT [facility] Name Value Range Interpretation Code Description Data Lety rce(s) Supporting Document(s) Progress Note [facility] VDFXHd3kIgAKVxLk24/AWVvoWKHip7JvSMiuEAc6XAclBRBvM3CgMUN5dU4oUDN8GWpTBmLrPnNgOXL0 lbm [file] Fy2mKLMJTi5+RFjfrRJtyYtsCRUUHaG9MDDwUPmpCUGXXp3M Procedure Social History Code Duration Value Status Description Data Source(s ) Smoking 11/14/2020 12:00:00 AM EDT Current Smoker completed Dorenee nt Smoker eCW1 ([facility]) Alcohol intake 06/24/2020 12:00:00 AM EDT Current non-d scot of alcohol (finding) completed Current non-drinker of alcohol (finding) [facility] Tobacco use and exposure 06/24/2020 12:00:00 AM EDT Never used co mpleted Never used [facility] Smoking 06/24/2020 12:00:00 AM EDT Never smoker completed Never s [facility] Vital Signs ID Date Data Source UNK Name Value Range Interpretation Code Description Data Source(s) Body weight 132 [lb_av] 132 [lb_av] eCW1 ([facility]) Body weight 59.87 kg 59.87 kg eCW1 ([facility]) Body height 64 [in_i] 64 [in_i] eCW1 ([facility]) Body mass index (BMI) [Ratio] 22.66 kg/m2 22.66 kg/m2 eCW1 ([facility]) Systolic blood pressure 118 mm[Hg] 118 mm[Hg] e CW1 ([facility]) Diastolic blood pressure 68 mm[Hg] 68 mm[Hg] eCW1 ([facility]) Patient Treatment Plan of Care Planned Activity Planned Date Details Description Data Source (s) Clobetasol Propionate 0.5 MG/ML Topical Cream 11/14/2020 12:00:00 A M EDT eCW1 ([facility]) BD Insulin Syringe U/F 30G X 1/2" 0.5 ML (Insulin Syri nge-Needle U-100) 06/24/2020 12:00:00 AM [facility] Pen Newton 31G X 5 MM 06/24/2020 12:00:00 AM [facility] Contour Next Test In Vitro Strip (glucose blood) 06/24/2020 12:00:0 0 AM [facility] Acetone (Urine) Test In Vitro Strip 06/24/2020 12:00:00 AM [facility] Contour Next Test In Vitro Strip (glucose blood) 05/03/2020 12:00:0 0 AM [facility] Insulin Lispro 100 UNT/ML Injectable Solution 05/03/2020 12:00:00 A M [facility] Basaglar KwikPen 100 UNIT/ML Subcutaneou s Solution Pen-injector (insulin glargine) 05/03/2020 12:00:00 AM EDT [facility] Lancets 30G 04/26/2020 12:00:00 AM EST [facility] BD Insulin Syringe U/F 30G X 1/2" 0.5 ML (Insulin Syri nge-Needle U-100) 04/26/2020 12:00:00 AM [facility] Pen [place] 31G X 5 MM 11/24/2019 12:00:00 AM [facility] Acetone (Urine) Test In Vitro Strip 09/14/2019 12:00:00 AM [facility]
== END 2020-12-12 03:37 | disposition left against medical advice (07) ==
LOC: M ED 00:33
DX: Z53.21 Procedure and treatment not carried out due to patient leaving prior to being seen by health care provider (principal)

== ENCOUNTER 2020-12-28 10:32 | Inpatient (IN) | payer OTHER ==
[~2020-12-28] VITALS: Ht 162.6 cm; Wt 61.4 kg
[2020-12-28] MEDS: ENOXAPARIN 40MG/0.4ML SYRINGE (J1650 PER 10MG) SC SCH (09:00)
[~2020-12-28 10:32] MED LIST changes: +ADME100I SC; +BASA100I SC
--- OUTSIDE RECORDS SUMMARY | 2020-12-28 10:39 | CCD ---
Author Author [facility] Organization [facility] Address Unknown Phone Unavailable Care Team Providers Care Cured Meats Supervisor Name Role Phone PERRY CASANOVA Unavailable Unavailable Venkata, J Kelly INTERNET MARKETING ANALYST Unavailable Unavailable Venkata, J Kelly INTERNET MARKETING ANALYST Unavailable Unavailable Venkata, J Kelly INTERNET MARKETING ANALYST Unavailable Unavailable Venkata, J Kelly INTERNET MARKETING ANALYST Unavailable Unavailable Venkata, J Kelly INTERNET MARKETING ANALYST Unavailable Unavailable Venkata, J Kelly INTERNET MARKETING ANALYST Unavailable Unavailable Venkata, J Kelly INTERNET MARKETING ANALYST Unavailable Unavailable Venkata, J Kelly INTERNET MARKETING ANALYST Unavailable Unavailable Venkata, J Kelly INTERNET MARKETING ANALYST Unavailable Unavailable Venkata, J Kelly INTERNET MARKETING ANALYST Unavailable Unavailable Venkata, J Kelly INTERNET MARKETING ANALYST Unavailable Unavailable Venkata, J Kelly INTERNET MARKETING ANALYST Unavailable Unavailable Venkata, J Kelly INTERNET MARKETING ANALYST Unavailable Unavailable Venkata, J Kelly INTERNET MARKETING ANALYST Unavailable Unavailable Venkata, J Kelly INTERNET MARKETING ANALYST Unavailable Unavailable Venkata, J Kelly INTERNET MARKETING ANALYST Unavailable Unavailable Venkata, J Kelly INTERNET MARKETING ANALYST Unavailable Unavailable Venkata, J Kelly INTERNET MARKETING ANALYST Unavailable Unavailable Venkata, J Kelly INTERNET MARKETING ANALYST Unavailable Unavailable Venkata, J Kelly INTERNET MARKETING ANALYST Unavailable Unavailable Venkata, J Kelly INTERNET MARKETING ANALYST Unavailable Unavailable Venkata, J Kelly INTERNET MARKETING ANALYST Unavailable Unavailable Venkata, J Kelly INTERNET MARKETING ANALYST Unavailable Unavailable Venkata, J Kelly INTERNET MARKETING ANALYST Unavailable Unavailable Venkata, J Kelly INTERNET MARKETING ANALYST Unavailable Unavailable Venkata, J Kelly INTERNET MARKETING ANALYST Unavailable Unavailable Venkata, J Kelly INTERNET MARKETING ANALYST Unavailable Unavailable Venkata, J Kelly INTERNET MARKETING ANALYST Unavailable Unavailable Venkata, J Kelly INTERNET MARKETING ANALYST Unavailable Unavailable Venkata, J Kelly INTERNET MARKETING ANALYST Unavailable Unavailable Venkata, J Kelly INTERNET MARKETING ANALYST Unavailable Unavailable Venkata, J Kelly INTERNET MARKETING ANALYST Unavailable Unavailable Venkata, J Kelly INTERNET MARKETING ANALYST Unavailable Unavailable Venkata, J Kelly INTERNET MARKETING ANALYST Unavailable Unavailable Venkata, J Kelly INTERNET MARKETING ANALYST Unavailable Unavailable Venkata, J Kelly INTERNET MARKETING ANALYST Unavailable Unavailable Venkata, J Kelly INTERNET MARKETING ANALYST Unavailable Unavailable Venkata, J Kelly INTERNET MARKETING ANALYST Unavailable Unavailable Venkata, J Kelly INTERNET MARKETING ANALYST Unavailable Unavailable Venkata, J Kelly INTERNET MARKETING ANALYST Unavailable Unavailable Ingris Pizarro MD Unavailable Unavailable Ingris Pizarro MD Unavailable Unavailable Ingris Pizarro MD Unavailable Unavailable Ingris Pizarro MD Unavailable Unavailable Ingris Pizarro MD Unavailable Unavailable Ingris Pizarro MD Unavailable Unavailable Ingris Pizarro MD Unavailable Unavailable Ingris Pizarro MD Unavailable Unavailable Ingris Pizarro MD Unavailable Unavailable Ingris Pizarro MD Unavailable Unavailable Ingris Pizarro MD Unavailable Unavailable Ingris Pizarro MD Unavailable Unavailable Ingris Pizarro MD Unavailable Unavailable Ingris Pizarro MD Unavailable Unavailable Ingris Pizarro MD Unavailable Unavailable Ingris Pizarro MD Unavailable Unavailable Ingris Pizarro MD Unavailable Unavailable Ingris Pizarro MD Unavailable Unavailable Ingris Pizarro MD Unavailable Unavailable Ingris Pizarro MD Unavailable Unavailable Ingris Pizarro MD Unavailable Unavailable Ingris Pizarro MD Unavailable Unavailable Ingris Pizarro MD Unavailable Unavailable Ingris Pizarro MD Unavailable Unavailable Ingris Pizarro MD Unavailable Unavailable Ingris Pizarro MD Unavailable Unavailable Ingris Pizarro MD Unavailable Unavailable Juarez, Ingris MD Unavailable [...] is protected by Article 27-F of the [facility] Public Health law. If you continue you may have access to information: Regarding HIV / AIDS; Provided by facilities licensed or operated by the [facility] Office of Mental Health; or Provided by the [facility] Office for People With Developmental Disabilities. If such information is present, then the following [facility] mandated warning applies: This information has been [...] reactions NO KNOWN ALLERGIES NO KNOWN ALLERGIES [facility] Family History Family Member Name Family Member Gender Family Member Status Date o f Status Description Data Source(s) Unknown Female Problem [facility] ([facility]) Encounters Encounter Providers Location Date Indications Data Source(s ) Outpatient [address] [facility] [address] 11/14/2020 12:00:00 AM EDT eCW1 ([facility]) Outpatient Attender: Kelly Hastings NP 10/12/2020 12:00:00 AM T [facility] Outpatient Attender: Kelly Hastings NP [id number] 08/2020 12:00:00 AM EDT - 06/24/2020 10:20:08 AM EDT Type 1 diabetes mellitus with hyperglycemia [facility] Type 1 diabetes mellitus with hyperglyce eloisa Outpatient Attender: Kelly Hastings NP 04/22/2020 12:00:00 AM [facility] Outpatient Attender: Kelly Hastings NP 04/19/2020 12:00:00 AM [facility] Outpatient Attender: PERRY Saucedaender: Ingris Pizarro MD 12/21/2019 12:00:00 AM [facility] Outpatient Attender: Kelly Hastings NP 12/16/2019 12:00:00 AM [facility] Medications Medication Brand Name Start Date Product Form Dose Route Admi nistrative Instructions Pharmacy Instructions Status Indications Reaction Description Data Source(s) Clobetasol Propionate 0.5 MG/ML Topical Cream Clobetas ol Propionate 0.05 % Clobetasol Propionate 0.05 % 11/14/2020 12:00:00 AM EDT 1.0 {applicat ion} active Clobetasol Propionate 0.05 % [facility] Contour Next Test In Vitro Strip (glucose blood) 2736-2284-2 5 06/24/2020 12:00:00 AM EDT active Type 1 diabetes mellitus with hyperglycemia Use as directed to check blood glucose 6 times daily. Dx E10.65 [facility] Type 1 diabetes mellitus with hyperglyce eloisa Pen Melrude 31G X 5 MM [id number] 06/24/2020 12:00:00 AM EDT 1 {each} Does not apply active Type 1 diabetes mellitus with hyperg lycemia 1 each by Does not apply route nightly Use as directed once daily with basaglar injection incase of pump failure. Dx E10.65 [facility] Type 1 diabetes mellitus with hyperglyce eloisa Acetone (Urine) Test In Vitro Strip [id number] 06/24/2020 12:00:00 AM EDT active Type 1 diabetes mellitus with hyperglycemia Ketostix. Check urine ketones when glucose above 250 mg/dl for two tests in a row and/or with illness. MDD:10. Dx code: E10.65 [facility] Type 1 diabetes mellitus with hyperglyce eloisa BD Insulin Syringe U/F 30G X 1/2" 0.5 ML (Insulin Syri nge-Needle U-100) [id number] 06/24/2020 12:00:00 AM EDT a ctive Type 1 diabetes mellitus with hyperglycemia Use as directed. USE DIRECTED FOUR TI MES A DAY [facility] Type 1 diabetes mellitus with hyperglyce eloisa Insulin Lispro 100 UNT/ML Injectable Tresa ution Insulin Lispro 100 UNIT/ML Subcutaneous Solution (Admelog) Insulin Lispro 100 UNIT/ML Subcutaneous Solution (Admelog) 05/03/2020 12:00:00 AM EDT act ata Type 1 diabetes mellitus with hyperglycemia Subq continual infusion via insuiln pump. Max Daily Dose inclusive of priming and titration: 80 units. Dx code:E10.65 [facility] Type 1 diabetes mellitus with hyperglyce eloisa Contour Next Test In Vitro Strip (glucose blood) 3595-0908-2 5 05/03/2020 12:00:00 AM EDT aborted Type 1 diabetes mellitus with hyperglycemia Use as directed to check blood glucose 6 times daily. Dx E10.65 [facility] Type 1 diabetes mellitus with hyperglyce eloisa Basaglar KwikPen 100 UNIT/ML Subcutaneou s Solution Pen-injector (insulin glargine) 6138-1907-88 05/03/2020 12:00:00 AM EDT active Type 1 diabetes mellitus with hyperglycemia In case of pump f ailure, inject 35 units into skin nightly. MDD 60 units with titration and priming. Dx:E10.65 [facility] Type 1 diabetes mellitus with hyperglyce eloisa Lancets 30G [id number] 04/26/2020 12:00:00 AM EST active Type 1 diabetes mellitus with hyperglycemia Use as directed. Use as directed to test 6 times daily. Dx: E10.65. [facility] Type 1 diabetes mellitus with hyperglyce eloisa BD Insulin Syringe U/F 30G X 1/2" 0.5 ML (Insulin Syri nge-Needle U-100) [id number] 04/26/2020 12:00:00 AM EST memo borted Type 1 diabetes mellitus with hyperglycemia USE DIRECTED FOUR TIMES A DAY [facility] Type 1 diabetes mellitus with hyperglyce eloisa Pen Melrude 31G X 5 MM [id number] 11/24/2019 12:00:00 AM EDT 1 {each} Does not apply aborted Type 1 diabetes mellitus with hyperg lycemia 1 each by Does not apply route nightly Use as directed once daily with basaglar injection incase of pump failure. Dx E10.65 [facility] Type 1 diabetes mellitus with hyperglyce eloisa Acetone (Urine) Test In Vitro Strip [id number] 09/14/2019 12:00:00 AM EDT aborted Type 1 diabetes mellitus with hyperglycemia Ketostix. Check urine ketones when glucose above 250 mg/dl for two tests in a row and/or with illness. MDD:10. Dx code: E10.65 [facility] Type 1 diabetes mellitus with hyperglyce eloisa Insurance Providers Payer name Policy type / Coverage type Policy ID Covered libertarian ID Covered libertarian's relationship to mendoza Policy Mendoza Plan Information EXCELL I [id number] Self [id number] [facility] [id number] S [id number] [facility] [id number] S [id number] [facility] [id number] S [id number] [facility] [id number] S [id number] [facility] [id number] S [id number] [facility] [id number] S [id number] [facility] [id number] S [id number] [facility] [id number] S [id number] [facility] [id number] S [id number] [facility] [id number] S [id number] [facility] I [id number] Self [id number] [facility] [id number] SP [id number] BLUE CROSS [id number] S [id number] MEDICAID GME W [id number] S [id number] F [facility] COMM PLAN DAHLIA W [id number] S [id number] [facility] COMM PLAN DAHLIA W UNAVAILABLE S UNAVAILABLE BLUE CHOICE OPTN FHP O [id number] S [id number] [facility] PLAN MCDO [id number] SP [id number] BLUE CROSS [id number] S [id number] [facility] PL[facility] XIX [id number] 18 [id number] [facility] PL[facility] XIX [id number] 18 [id number] MEDICAID GME [id number] S [id number] [facility] [id number] S [id number] [facility] [id number] SP [id number] SELF PAY SP [facility] Community Plan Commercial [id number] Self [id number] [facility] Commercial [id number] Self [id number] [facility] Plan Commercial [id number] Self SELF-PAY UNAVAILABLE UNAVAILA BLE BLUE CROSS [id number] S [id number] BLUE CROSS [id number] S [id number] BLUE CROSS [id number] S [id number] [employer] [id number] S [id number] Problems, Conditions, and Diagnoses Code Display Name Description Problem Type Effective Dates Data Source(s) R21 Rash and other nonspecific skin eruption Rash and other nonspecific skin eruption Diagnosis 06/24/2020 09:13:01 AM EDT [facility] 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) Problem 11/14/2020 12:00:00 AM EDT [facility] Surgeries/Procedures No Information Results ID Date Data Source [id number] 06/24/2020 10:11:55 AM EDT [facility] Name Value Range Interpretation Code Description Data Lety rce(s) Supporting Document(s) Progress Note [facility] XLURNm9iOxCPXmSs36/QFDujNRVqb4RqABudIPc8KUapLVYbO0DhOLV2dY6nTGN1OJdDPmLaRePeDVJ9 lbm [file] /dAv4GtOtszcL37TZ/JZDa+r4Tqs28qJkLqtC4fCMt8Q+5Bwq9+c3VqdSN0E/José Miguel+qsnm1dkCIFsldg8 [file] ICAgICAgICAgICAgICAgICAgICAgICAgICAgICAgIC AgICAgICAgICAgICAgICAgDQogICAgICAgICAgICAgICAgICAgICAgICAgICAgICAgICAgICAgICAgIC AgICAgICAgICAgICAgICAgICAgICAgICAgICAgICAgICAgICAgICAgICAgICAgICAgICAgICAgICAgDQ ogICAgICAgICAgICAgICAgICAgICAgICAgICAgICAg ICAgICAgICAgICAgICAgICAgICAgICAgICAgICAgICAgICAgICAgICAgICAgICAgICAgICAgICAgICAg ICAgICAgICAgDQogICAgICAgICAgICAgICAgICAgICAgICAgICAgICAgICAgICAgICAgICAgICAgICAg ICAgICAgICAgICAgICAgICAgICAgICAgICAgICAgIC AgICAgICAgICAgICAgICAgICAgDQogICAgICAgICAgICAgICAgICAgICAgICAgICAgICAgICAgICAgIC AgICAgICAgICAgICAgICAgICAgICAgICAgICAgICAgICAgICAgICAgICAgICAgICAgICAgICAgICAgIC AgDQogICAgICAgICAgICAgICAgICAgICAgICAgICAg ICAgICAgICAgICAgICAgICAgICAgICAgICAgICAgICAgICAgICAgICAgICAgICAgICAgICAgICAgICAg ICAgICAgICAgICAgDQogICAgICAgICAgICAgICAgICAgICAgICAgICAgICAgICAgICAgICAgICAgICAg ICAgICAgICAgICAgICAgICAgICAgICAgICAgICAgIC AgICAgICAgICAgICAgICAgICAgICAgDQogICAgICAgICAgICAgICAgICAgICAgICAgICAgICAgICAgIC AgICAgICAgICAgICAgICAgICAgICAgICAgICAgICAgICAgICAgICAgICAgICAgICAgICAgICAgICAgIC AgICAgDQogICAgICAgICAgICAgICAgICAgICAgICAg ICAgICAgICAgICAgICAgICAgICAgICAgICAgICAgICAgICAgICAgICAgICAgICAgICAgICAgICAgICAg ICAgICAgICAgICAgICAgDQogICAgICAgICAgICAgICAgICAgICAgICAgICAgICAgICAgICAgICAgICAg ICAgICAgICAgICAgICAgICAgICAgICAgICAgICAgIC BzLHMiTHGwPYJiCMLpHSMrQKDcRUCdRYQeVRl6I7ksELUsANJuFZ8yTSd7Oy1+QOnQHdCnMKV5azHaxA 6EJC0tu5WiNPbjCJNff9UaJSq4JP4HMILgKYqdFF0EKGubvt9JODAdQPMxmJXLd5qzWmAeRVW6HLNcHa vlVG1ZXXNqR3zkaaMyYUHaSCLVBG6BVtSfS9QplT21 IDENCj4+EMyubaIbNbnVVzOuBKHux7WnLRd8HD5XYDQnGbhvk0VpVqArUUSXVOcpHA1GEQQ2QKOmQWVe Bb5ARZWyR485kyXmNK7QKr1COdSkDH2nqp5SNaJvMUSuXypKVol7GPlpHO9OpBMrJVwGwh5jvwAxdzOT i6OvnxSxfHASaJKfNG9oC8WpGKy5DDnzPFXASAW5UM GaBh0dADMaWWC3UgEsPNOGUJ5RTEYcIAHmbWDlKMXfUJYNHN9OVEjfPNA4XBEhyhMgtNDoOJfxTM8VNW JlbnQgMjIgMCBSDQo+Ch7KIL2lr4TxREjvEWGjFC2oly3RHGvCJiWjE5V8lJHaA7I7KAabJx3GEBAcGA TbPtMsEJIHXXhqCX6HJT8jshQ6HO0WwIFgRXCoWHEc hEXpOLb8F33aoGEbYCaxKQ5UZFC+Gustavo+Kf1FVHVaJYLwGQXhHhRxMQMEBlDkT5MdA2VAd2FwL0GfXI12 gDscodXfMAqcDB1WBT1jRZKxIJDNXI1TnIXfgO2updDwLgCwTCSNYtUtZ91xjHJtDNAwTIKxQXAbGv5D GHBeG8AbtiVwzTwkqkTlDXNcETDHZP4ZMEsztpNfrY CgpBpmIZ36aWteFT2QDz9CIvViJY9lri9ChQDpNw5MLWFpKS0TPJWuLGPoUPJnZCK7YTJoNkTqOZqgYC AaOXEcOCW2RBWtRXLlJL5QUpRqRNAfCqSrHIZkHSUkNDKzam2UTOUjZSMrUDueOUSyQLFyFVLrDXeuMA HvVUNkCVZ8OOPdOMFdVC3BWvAfOYIzLFS6AgSyPXQe YQTuvj1NCUVxJLNuNmzsLIRgFHKcQCMdBClrWEZoJFW9PdioLHEaDTOtMG7IBwQhACIxHRL6LAxdQHEi YQClqk7CQGGuKBCcMUT4AIXkZWHrNXBvOZvfETCtVJQ1RND3EYNjRAZmGD0WEiJwUSJfOKDvFyclQEQe QMGzjj8VBIBhMQGhHwQvIjUkIDKcDXWzYQliGNAaWU Z5CqiaKKMjNPMlXN8IFyJkBHUcLAhjZCpxICGkRWEilm4WLMQlCPDfSPP6KsKnCCYwYDOlXLbxGUYvCX C4CVU5XNZpGSHfUH8OZrNzFHSaFPu3ZQLhGLUqABWkos2ISFAkHVQyLTQmRlQgODPnLVKxIUzsDCIaQH X3XAJ8CVPmGHEgVV0PYuJoBSAiFCr4GdzgILFsNOQs hz4GFSYiHUSuMBL5UVNkPQApYHHuSNhlBUNcIRCwTZOxXXTkBVVgMQ2MPaXdHKXmKzU8EWBvGLQvJYEy nv2HQUMbRTPoJfQ9MqSzWHPeRHCbMZj0hqRsqBWdBQb5CN6XO5TfcdKkKmYJVf9Zb704EMT8LXVtPx3R R4gnWn5rTFAuIVFBCm3HTOk2PfAgQZB8OmH7PaRqUn TlS4U6PyKhHAB6TTLdMEgoUIx+HQbjITY0KMtzNJkmMAYeRmO6EJchIXN1BgvfCQH2IVS9BM9eENWJXe 4+UZhtgPMtqPmoRNHVQlHlJol6DUcyIJPZGp8F ID Date Data Source [id number] 06/24/2020 10:11:49 AM EDT [facility] Name Value Range Interpretation Code Description Data Lety rce(s) Supporting Document(s) Progress Note [facility] FBFXPo2gDvZGNnEt50/GCEfoAABzm4PeUBdkPJa9WZfgBUSfX7SlQIP6kR8sURI7NSuBUaBnRpDzAYA8 lbm [file] If9qBBDLKb1+TUsigPZhdQegTBOCIiV8QGNmRPilCBCQLa2U Procedure Social History Code Duration Value Status Description Data Source(s ) Smoking 11/14/2020 12:00:00 AM EDT Current Smoker completed Curre nt Smoker [facility] Alcohol intake 06/24/2020 12:00:00 AM EDT Current non-d scot of alcohol (finding) completed Current non-drinker of alcohol (finding) [facility] Tobacco use and exposure 06/24/2020 12:00:00 AM EDT Never used co mpleted Never used [facility] Smoking 06/24/2020 12:00:00 AM EDT Never smoker completed Never s [facility] Vital Signs ID Date Data Source UNK Name Value Range Interpretation Code Description Data Source(s) Body weight 132 [lb_av] 132 [lb_av] eCW1 ([facility]) Body weight 59.87 kg 59.87 kg eCW1 ([facility]) Body height 64 [in_i] 64 [in_i] eCW1 ([facility]) Body mass index (BMI) [Ratio] 22.66 kg/m2 22.66 kg/m2 [facility] Systolic blood pressure 118 mm[Hg] 118 mm[Hg] e CW1 [facility] Diastolic blood pressure 68 mm[Hg] 68 mm[Hg] [facility]CW[facility] Patient Treatment Plan of Care Planned Activity Planned Date Details Description Data Source (s) Clobetasol Propionate 0.5 MG/ML Topical Cream 11/14/2020 12:00:00 A M EDT [facility]) BD Insulin Syringe U/F 30G X 1/2" 0.5 ML (Insulin Syri nge-Needle U-100) 06/24/2020 12:00:00 AM [facility] Pen Melrude 31G X 5 MM 06/24/2020 12:00:00 AM [facility] Contour Next Test In Vitro Strip (glucose blood) 06/24/2020 12:00:0 0 AM [facility] Acetone (Urine) Test In Vitro Strip 06/24/2020 12:00:00 AM [facility] Contour Next Test In Vitro Strip (glucose blood) 05/03/2020 12:00:0 0 AM [facility] Insulin Lispro 100 UNT/ML Injectable Solution 05/03/2020 12:00:00 A M [facility] Basaglar KwikPen 100 UNIT/ML Subcutaneou s Solution Pen-injector (insulin glargine) 05/03/2020 12:00:00 AM EDT [facility] Lancets 30G 04/26/2020 12:00:00 AM EST [facility] BD Insulin Syringe U/F 30G X 1/2" 0.5 ML (Insulin Syri nge-Needle U-100) 04/26/2020 12:00:00 AM [facility] Pen Melrude 31G X 5 MM 11/24/2019 12:00:00 AM [facility] Acetone (Urine) Test In Vitro Strip 09/14/2019 12:00:00 AM [facility]
[2020-12-28] MEDS ORDERED: ONDANSETRON 4MG/2ML VIAL IV ONE (12:35)
[2020-12-28] MEDS ORDERED: NS 1,000 ML IV ONE ×2 (12:35→14:25)
[2020-12-28 13:22] LABS: ABG BASE EXCESS -12.3 (-2.0-2.0); ABG HCO3 11.5 MEQ/L (22.0-26.0); ABG O2 SATURATION 98.1 % (95.0-99.0); ABG PARTIAL PRESSURE CO2 22.5 mmHg (35.0-45.0); ABG PARTIAL PRESSURE O2 106.1 mmHg (75.0-100.0); ABG STANDARD HCO3 15.1 MEQ/L (22.0-26.0); ABG TOTAL CO2 12.2 MEQ/L (22.0-29.0); ABG pH (ARTERIAL) 7.326 UNITS (7.350-7.450)
--- OUTSIDE RECORDS SUMMARY | 2020-12-28 13:24 | CCD ---
Author Author [facility] Organization [facility] Address Unknown Phone Unavailable Care Team Providers Care Floor Layer Helper Name Role Phone PERRY CASANOVA Unavailable Unavailable Venkata, J Kelly PACKAGING MACHINE OPERATOR Unavailable Unavailable Venkata, J Kelly PACKAGING MACHINE OPERATOR Unavailable Unavailable Venkata, J Kelly PACKAGING MACHINE OPERATOR Unavailable Unavailable Venkata, J Kelly PACKAGING MACHINE OPERATOR Unavailable Unavailable Venkata, J Kelly PACKAGING MACHINE OPERATOR Unavailable Unavailable Venkata, J Kelly PACKAGING MACHINE OPERATOR Unavailable Unavailable Venkata, J Kelly PACKAGING MACHINE OPERATOR Unavailable Unavailable Venkata, J Kelly PACKAGING MACHINE OPERATOR Unavailable Unavailable Venkata, J Kelly PACKAGING MACHINE OPERATOR Unavailable Unavailable Venkata, J Kelly PACKAGING MACHINE OPERATOR Unavailable Unavailable Venkata, J Kelly PACKAGING MACHINE OPERATOR Unavailable Unavailable Venkata, J Kelly PACKAGING MACHINE OPERATOR Unavailable Unavailable Venkata, J Kelly PACKAGING MACHINE OPERATOR Unavailable Unavailable Venkata, J Kelly PACKAGING MACHINE OPERATOR Unavailable Unavailable Venkata, J Kelly PACKAGING MACHINE OPERATOR Unavailable Unavailable Venkata, J Kelly PACKAGING MACHINE OPERATOR Unavailable Unavailable Venkata, J Kelly PACKAGING MACHINE OPERATOR Unavailable Unavailable Venkata, J Kelly PACKAGING MACHINE OPERATOR Unavailable Unavailable Venkata, J Kelly PACKAGING MACHINE OPERATOR Unavailable Unavailable Venkata, J Kelly PACKAGING MACHINE OPERATOR Unavailable Unavailable Venkata, J Kelly PACKAGING MACHINE OPERATOR Unavailable Unavailable Venkata, J Kelly PACKAGING MACHINE OPERATOR Unavailable Unavailable Venkata, J Kelly PACKAGING MACHINE OPERATOR Unavailable Unavailable Venkata, J Kelly PACKAGING MACHINE OPERATOR Unavailable Unavailable Venkata, J Kelly PACKAGING MACHINE OPERATOR Unavailable Unavailable Venkata, J Kelly PACKAGING MACHINE OPERATOR Unavailable Unavailable Venkata, J Kelly PACKAGING MACHINE OPERATOR Unavailable Unavailable Venkata, J Kelly PACKAGING MACHINE OPERATOR Unavailable Unavailable Venkata, J Kelly PACKAGING MACHINE OPERATOR Unavailable Unavailable Venkata, J Kelly PACKAGING MACHINE OPERATOR Unavailable Unavailable Venkata, J Kelly PACKAGING MACHINE OPERATOR Unavailable Unavailable Venkata, J Kelly PACKAGING MACHINE OPERATOR Unavailable Unavailable Venkata, J Kelly PACKAGING MACHINE OPERATOR Unavailable Unavailable Venkata, J Kelly PACKAGING MACHINE OPERATOR Unavailable Unavailable Venkata, J Kelly PACKAGING MACHINE OPERATOR Unavailable Unavailable Venkata, J Kelly PACKAGING MACHINE OPERATOR Unavailable Unavailable Venkata, J Kelly PACKAGING MACHINE OPERATOR Unavailable Unavailable Venkata, J Kelly PACKAGING MACHINE OPERATOR Unavailable Unavailable Venkata, J Kelly PACKAGING MACHINE OPERATOR Unavailable Unavailable Venkata, J Kelly PACKAGING MACHINE OPERATOR Unavailable Unavailable Ingris Pizarro MD Unavailable Unavailable [...] is protected by Article 27-F of the [facility] Public Health law. If you continue you may have access to information: Regarding HIV / AIDS; Provided by facilities licensed or operated by the [facility] Office of Mental Health; or Provided by the [facility] Office for People With Developmental Disabilities. If such information is present, then the following [facility] mandated warning applies: This information has been [...] law may result in a fine or mcc sentence or both. A general authorization for the release of medical or other information is NOT sufficient authorization for further disc losure. Allergies and Adverse Reactions Type Description Substance Reaction Status Data Source(s ) Propensity to adverse reactions NO KNOWN ALLERGIES NO KNOWN ALLERGIES [facility] Family History Family Member Name Family Member Gender Family Member Status Date o f Status Description Data Source(s) Unknown Female Problem [facility] ([facility]) Encounters Encounter Providers Location Date Indications Data Source(s ) [place] [address] [address] 11/14/2020 12:00:00 AM EDT eCW1 ([facility]) Outpatient Attender: Kelly Hastings NP 10/12/2020 12:00:00 AM T [facility] Outpatient Attender: Kelly Hastings NP [id number] 08/2020 12:00:00 AM EDT - 06/24/2020 10:20:08 AM EDT Type 1 diabetes mellitus with hyperglycemia [facility] Type 1 diabetes mellitus with hyperglyce eloisa Outpatient Attender: Kelly Hastings NP 04/22/2020 12:00:00 AM [facility] Outpatient Attender: Kelly Hastings NP 04/19/2020 12:00:00 AM [facility] Outpatient Attender: PERRY Saucedaender: Ingris Pizarro MD 12/21/2019 12:00:00 AM [facility] Outpatient Attender: Kelly Hastings NP 12/16/2019 12:00:00 AM [facility] Medications Medication Brand Name Start Date Product Form Dose Route Admi nistrative Instructions Pharmacy Instructions Status Indications Reaction Description Data Source(s) Clobetasol Propionate 0.5 MG/ML Topical Cream Clobetas ol Propionate 0.05 % Clobetasol Propionate 0.05 % 11/14/2020 12:00:00 AM EDT 1.0 {applicat ion} active Clobetasol Propionate 0.05 % eCW1 ([facility]) Contour Next Test In Vitro Strip (glucose blood) 6600-7553-2 5 06/24/2020 12:00:00 AM EDT active Type 1 diabetes mellitus with hyperglycemia Use as directed to check blood glucose 6 times daily. Dx E10.65 [facility] Type 1 diabetes mellitus with hyperglyce eloisa Pen Wayan 31G X 5 MM [id number] 06/24/2020 12:00:00 AM EDT 1 {each} Does not apply active Type 1 diabetes mellitus with hyperg lycemia 1 each by Does not apply route nightly Use as directed once daily with basaglar injection incase of pump failure. Dx E10.65 [facility] Type 1 diabetes mellitus with hyperglyce eloisa Acetone (Urine) Test In Vitro Strip [id number] 06/24/2020 12:00:00 AM EDT active Type 1 diabetes mellitus with hyperglycemia Ketostix. Check urine ketones when glucose above 250 mg/dl for two tests in a row and/or with illness. MDD:10. Dx code: E10.65 [facility] Type 1 diabetes mellitus with hyperglyce eloisa BD Insulin Syringe U/F 30G X 1/2" 0.5 ML (Insulin Syri nge-Needle U-100) [id number] 06/24/2020 12:00:00 AM EDT a ctive Type 1 diabetes mellitus with hyperglycemia Use as directed. USE DIRECTED FOUR TI MES A DAY [facility] Type 1 diabetes mellitus with hyperglyce eloisa Insulin Lispro 100 UNT/ML Injectable Tresa ution Insulin Lispro 100 UNIT/ML Subcutaneous Solution (Admelog) Insulin Lispro 100 UNIT/ML Subcutaneous Solution (Admelog) 05/03/2020 12:00:00 AM EDT act ata Type 1 diabetes mellitus with hyperglycemia Subq continual infusion via insuiln pump. Max Daily Dose inclusive of priming and titration: 80 units. Dx code:E10.65 [facility] Type 1 diabetes mellitus with hyperglyce eloisa Contour Next Test In Vitro Strip (glucose blood) [id number] 5 05/03/2020 12:00:00 AM EDT aborted Type 1 diabetes mellitus with hyperglycemia Use as directed to check blood glucose 6 times daily. Dx E10.65 [facility] Type 1 diabetes mellitus with hyperglyce eloisa Basaglar KwikPen 100 UNIT/ML Subcutaneou s Solution Pen-injector (insulin glargine) [id number] 05/03/2020 12:00:00 AM EDT active Type 1 diabetes mellitus with hyperglycemia In case of pump f ailure, inject 35 units into skin nightly. MDD 60 units with titration and priming. Dx:E10.65 [facility] Type 1 diabetes mellitus with hyperglyce eloisa Lancets 30G [id number] 04/26/2020 12:00:00 AM EST active Type 1 diabetes mellitus with hyperglycemia Use as directed. Use as directed to test 6 times daily. Dx: E10.65. [facility] Type 1 diabetes mellitus with hyperglyce eloisa BD Insulin Syringe U/F 30G X 1/2" 0.5 ML (Insulin Syri nge-Needle U-100) [id number] 04/26/2020 12:00:00 AM EST memo borted Type 1 diabetes mellitus with hyperglycemia USE DIRECTED FOUR TIMES A DAY [facility] Type 1 diabetes mellitus with hyperglyce eloisa Pen Wayan 31G X 5 MM [id number] 11/24/2019 12:00:00 AM EDT 1 {each} Does not apply aborted Type 1 diabetes mellitus with hyperg lycemia 1 each by Does not apply route nightly Use as directed once daily with basaglar injection incase of pump failure. Dx E10.65 [facility] Type 1 diabetes mellitus with hyperglyce eloisa Acetone (Urine) Test In Vitro Strip [id number] 09/14/2019 12:00:00 AM EDT aborted Type 1 diabetes mellitus with hyperglycemia Ketostix. Check urine ketones when glucose above 250 mg/dl for two tests in a row and/or with illness. MDD:10. Dx code: E10.65 [facility] Type 1 diabetes mellitus with hyperglyce eloisa Insurance Providers Payer name Policy type / Coverage type Policy ID Covered alliance party ID Covered alliance party's relationship to mendoza Policy Mendoza Plan Information EXCELL I [id number] Self [id number] [facility] [id number] S [id number] [facility] [id number] S [id number] [facility] [id number] S [id number] [facility] [id number] S [id number] [facility] [id number] S [id number] [facility] [id number] S [id number] [facility] [id number] S [id number] [facility] [id number] S [id number] [facility] [id number] S [id number] [facility] [id number] S [id number] [facility] I [id number] Self [id number] FORMERLY [facility] COMMUNITY PLAN [id number] SP [id number] BLUE CROSS [id number] S [id number] MEDICAID GME W [id number] S [id number] F [facility] COMM PLAN DAHLIA W [id number] S [id number] [facility] COMM PLAN DAHLIA W UNAVAILABLE S UNAVAILABLE BLUE CHOICE OPTN FHP O [id number] S [id number] [facility]MERLY [facility] COMMUNITY PLAN [id number] SP [id number] BLUE CROSS [id number] S [id number] [facility]LY [facility] COMMUNITY PLAN XIX [id number] 18 [id number] [facility]LY [facility] COMMUNITY PLAN XIX [id number] 18 [id number] MEDICAID GME [id number] S [id number] [facility] [id number] S [id number] [facility] COMMUNITY PLAN [facility] [id number] SP [id number] SELF PAY SP [facility] Community Plan Commercial [id number] Self [id number] [facility] Commercial [id number] Self [id number] [facility] Plan Commercial [id number] Self SELF-PAY UNAVAILABLE UNAVAILA BLE BLUE CROSS [id number] S [id number] BLUE CROSS [id number] S [id number] BLUE CROSS [id number] S [id number] [employer] [id number] S [id number] Problems, Conditions, and Diagnoses Code Display Name Description Problem Type Effective Dates Data Source(s) R21 Rash and other nonspecific skin eruption Rash and other nonspecific skin eruption Diagnosis 06/24/2020 09:13:01 AM EDT [facility] E11.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) Problem 11/14/2020 12:00:00 AM EDT eCW1 ([facility]) Surgeries/Procedures No Information Results ID Date Data Source [id number] 06/24/2020 10:11:55 AM EDT [facility] Name Value Range Interpretation Code Description Data Lety rce(s) Supporting Document(s) Progress Note [facility] XDTLHe0bPrOZObDj37/NVVshQAZgo6VcIGzyMUt8XZwvOSRcZ3DcZFG3mK9iYDI0JLkFOsLhJdJcLTA2 lbm [file] /uMl0CfTsyqeU11VZ/JZDa+q7Iqt18qQjMbdC6uFAi2F+5Bwq9+n5FeqGF6G/José Miguel+bbva9qpSRSfztj1 [file] ICAgICAgICAgICAgICAgICAgICAgICAgICAgICAgIC AgICAgICAgICAgICAgICAgDQogICAgICAgICAgICAgICAgICAgICAgICAgICAgICAgICAgICAgICAgIC AgICAgICAgICAgICAgICAgICAgICAgICAgICAgICAgICAgICAgICAgICAgICAgICAgICAgICAgICAgDQ ogICAgICAgICAgICAgICAgICAgICAgICAgICAgICAg ICAgICAgICAgICAgICAgICAgICAgICAgICAgICAgICAgICAgICAgICAgICAgICAgICAgICAgICAgICAg ICAgICAgICAgDQogICAgICAgICAgICAgICAgICAgICAgICAgICAgICAgICAgICAgICAgICAgICAgICAg ICAgICAgICAgICAgICAgICAgICAgICAgICAgICAgIC AgICAgICAgICAgICAgICAgICAgDQogICAgICAgICAgICAgICAgICAgICAgICAgICAgICAgICAgICAgIC AgICAgICAgICAgICAgICAgICAgICAgICAgICAgICAgICAgICAgICAgICAgICAgICAgICAgICAgICAgIC AgDQogICAgICAgICAgICAgICAgICAgICAgICAgICAg ICAgICAgICAgICAgICAgICAgICAgICAgICAgICAgICAgICAgICAgICAgICAgICAgICAgICAgICAgICAg ICAgICAgICAgICAgDQogICAgICAgICAgICAgICAgICAgICAgICAgICAgICAgICAgICAgICAgICAgICAg ICAgICAgICAgICAgICAgICAgICAgICAgICAgICAgIC AgICAgICAgICAgICAgICAgICAgICAgDQogICAgICAgICAgICAgICAgICAgICAgICAgICAgICAgICAgIC AgICAgICAgICAgICAgICAgICAgICAgICAgICAgICAgICAgICAgICAgICAgICAgICAgICAgICAgICAgIC AgICAgDQogICAgICAgICAgICAgICAgICAgICAgICAg ICAgICAgICAgICAgICAgICAgICAgICAgICAgICAgICAgICAgICAgICAgICAgICAgICAgICAgICAgICAg ICAgICAgICAgICAgICAgDQogICAgICAgICAgICAgICAgICAgICAgICAgICAgICAgICAgICAgICAgICAg ICAgICAgICAgICAgICAgICAgICAgICAgICAgICAgIC NiTOKsJDBxEQQiVXVaTQPnKTJqAZWrGQEnDHy0T2zhRMTkYHNvYO8dDKf3Sb9+IWyYIfFlESK5tnBqaM 3ORC7vs9NqVKofRYXfd4FwTZz1KT1AKZAwNUcwGO0QBJfzgt0CMOEfEAZsaCHDj2pnWbXeCTX7NMUaDl crJV6CWYVnJ4ngjwAoGZFcZEDFIK6BUpRhC3QjaS34 IDENCj4+HLlaamUzQwvHXaJaVQMgu0EpVGf5XF1HNXQaSqsmf8YkFdPuLRYMIOdbCB1WAFH1ZAMvTLHj Rk5NFCCvL905ljXcVJ4QLs2ZWrAfJF2ebs9RIrTtABNeXjbEWfc2FBkdQD6RlKMgPHsObv7lcsKkjqMF i2GdonKwcNTPiOUuRK6eQ3ZlZKp6JSscFXBONRF7QS QcNq0kHWMnOEK7FzHySRIPQV0MZIZnQPUuvWQoFRWzTNNFFX4ZGGzyHYB9KHBdpqHafGJkKBtdKY2XWJ JlbnQgMjIgMCBSDQo+Sr9WVX0ef0LhWEulBGKsEG2xdk5OHEcWIzQcW7Z2zASmT7Z2AYadEs0ASHBpSH AcCmUxXVYXMRvnAG6ESL3jzhV0RY3LiOHeARRgDIJn nUNqGQk6J73dfLSgKMunHN9GABA+Gustavo+Np8DOLLdQQHpAUQkMhHyTPBXYkEfA8YvK9QHw7AyF7LjSS28 fGzequRcRDryDE2JFB4vKYDhBRPGMH9KqKDpsQ4fkyHcCcRlOLLAFjSdF23vdLWuNRRgHAOgOYLjYv6S LRYuT4BuazIfzArneePaXHNhUBOQVC1PVTcgaqPayO QvkGrsZV56wKlaLJ8OYu7TBdVnRQ4kni5WmQKbHj3WRSKdGK0UGIGfOWTcXLQgOSH8GBZrXvSaIJtkSX QbPKRgSSE0YCJdLPJyLB4JHeTwPIXbNaOuZTRuCZWdYECkzo6NSCExCBCxPMjmFTZrYKUtTDFkGBumIY BpVUEuNEI8CMNyIRGsAO5DHuNaOYWcNYY1CzLyKBJu BLHzxm8XPRCgSNVlSihmBUOiDLMyAFBzKUxcNKDkACM0UrsmULAnMGNhGH0ZAyBsWTSuHBZ0GJtrLFNi SXSdkv1KZCPuSVZxLSA7CBMlHVLxCGHjUCuxPYUuEMU0GOS8HARxMPNcZO0XUdEuGJXaCCCdTykdFWEy ZETxxw8IURCjJMBmShWbRuOaZOShIVFqROdfPVZcLJ K0MrtiLVEnAFZlSV0UWjGyOCOvVWhzMEdtAJVtPPOcck5TFHNkQEXsTKV9KxClLGEwKDLeWZrqBIJlPA C0UUE4GJAySABmWD0IXtZgQEKqEGi9SAKlTWRlKDAeev7NONWxEYFaDUWtLbEmFLVcHHSzOUplKTTnQZ U4VUE8BJLtVPHbHO4JXoEfWMViNAy2VmbsSLUvRJIz xy0KCMAfYMNzYUS5UTMsGRTaFQHmVAwkYUNzCLSgFHSoXSMuZCWmDT8GTpJdIIGyEnM8KSVjGSPePPVr mn7ESIYvLWGkVxZ0RoRhGCLmKBAuYNx1prPwsLUwPLm2DL7DA7IcksUeZwGGPz6Dq018PNQ4PALpGt2C B3lsGw8uZTCkUNDLBg5DCOz5NdOuKPF8JiD4IyIpDs TmG6E9ElYpKSC7NNCnTPukFJf+OTnmQJQ2XHulYEzgKYJqNiN9KJzbIZR2YiieTGU9ODJ0MA8aGTLQDz 4+ABeryDQebJjuZAABJiSoZiu5JVriFYHKXh0K ID Date Data Source [id number] 06/24/2020 10:11:49 AM EDT [facility] Name Value Range Interpretation Code Description Data Lety rce(s) Supporting Document(s) Progress Note [facility] EQSHNw0jDhYWFqLk05/WXBtdYCRlp2DgBYpfAIt2OUvdMPCgW0WhRJU9iT2yNHX8FGaGCqRmTmEsXIY5 lbm [file] ICAgICAgICAgICAgICAgICAgICAgICAgICAgICAgICAgICAgICAgICAgICAgICAgICAgICAgICAgICAg ICAgICAgICAgICAgICAgICAgICAgICAgICAgICAgIC AgDQogICAgICAgICAgICAgICAgICAgICAgICAgICAgICAgICAgICAgICAgICAgICAgICAgICAgICAgIC AgICAgICAgICAgICAgICAgICAgICAgICAgICAgICAgICAgICAgICAgICAgDQogICAgICAgICAgICAgIC AgICAgICAgICAgICAgICAgICAgICAgICAgICAgICAg ICAgICAgICAgICAgICAgICAgICAgICAgICAgICAgICAgICAgICAgICAgICAgICAgICAgICAgDQogICAg ICAgICAgICAgICAgICAgICAgICAgICAgICAgICAgICAgICAgICAgICAgICAgICAgICAgICAgICAgICAg ICAgICAgICAgICAgICAgICAgICAgICAgICAgICAgIC AgICAgDQogICAgICAgICAgICAgICAgICAgICAgICAgICAgICAgICAgICAgICAgICAgICAgICAgICAgIC AgICAgICAgICAgICAgICAgICAgICAgICAgICAgICAgICAgICAgICAgICAgICAgDQogICAgICAgICAgIC AgICAgICAgICAgICAgICAgICAgICAgICAgICAgICAg ICAgICAgICAgICAgICAgICAgICAgICAgICAgICAgICAgICAgICAgICAgICAgICAgICAgICAgICAgDQog ICAgICAgICAgICAgICAgICAgICAgICAgICAgICAgICAgICAgICAgICAgICAgICAgICAgICAgICAgICAg ICAgICAgICAgICAgICAgICAgICAgICAgICAgICAgIC AgICAgICAgDQogICAgICAgICAgICAgICAgICAgICAgICAgICAgICAgICAgICAgICAgICAgICAgICAgIC AgICAgICAgICAgICAgICAgICAgICAgICAgICAgICAgICAgICAgICAgICAgICAgICAgDQogICAgICAgIC AgICAgICAgICAgICAgICAgICAgICAgICAgICAgICAg ICAgICAgICAgICAgICAgICAgICAgICAgICAgICAgICAgICAgICAgICAgICAgICAgICAgICAgICAgICAg DQogICAgICAgICAgICAgICAgICAgICAgICAgICAgICAgICAgICAgICAgICAgICAgICAgICAgICAgICAg ICAgICAgICAgICAgICAgICAgICAgICAgICAgICAgIC GzKNEaOVHfDAWlEBi7L1ktGEKxAFWpXK1jYSx2Jn0+JWwKSdIiUZM8diLgzN2TTC5le2KrZFzyKXDgf1 DbAMd9IL7WZIRiTVorLL2PJYbjwx2UHDCbGULdxLQBm1ggAkMwLBG6JXWqGdwhCP1FXFKxE0rlvaPnFB UgMCBSIDcgMCBSIDkgMCBSIDExIDAgUiAxMyAwIFIg ORLrBMMTBK5BTyWhL5VjeG27OEDFPn6+RJhvolMlHsbXSxBjEYMot6HjOFi5KS3FAOSiZypdd7JuFlQj WVCDXNtaCQ5TVKM0DGYqNBUyQi5KOTNlV593bhQuPB2DZo4PUaKyEI9umb1KQhPzEFEyLdmOHfx4ZMwi HP0AtHVzIOnEzm8trmTubfUVg1TdcbHiiTCYQCRyUW WEHYPkmAwkwV8rHMWXPUCuzFY4IcjfZaCyMNSeXEcpUVTFIZqIRbRpP2Ihh1HnQeV9YUKjAiFiEWivNX SpKgQ9QH04oActUA3MEMCyNYPzAW83TLKlMQOxNw8GGc4FEaRxFE3kkb1CHmEnSZVtNytFKwr8OBqtJW 1LaWXjH9AwxSTwz9fBQlMyP0AZYOXuWVFfNl6YSTZf WfLtUJDbCEptSS9pIBQmZCBJqWepzjM9MK5DXC9lybFzDS4EAjBcEt4jCx8ASuAzH0WiZ7XdHMEfEQNE QDqfDL8BHOoxPO2hXR7Jv9SGdGVgvP0hzt4XYVKgUBTsQfvzdk3PFxvmH0H5hEmrIUCySjZzNJAXKMwg HV7QRKRrMCD7KZVfUQWsZAHIErJaD71kTM3KM1Tho7 4iXvV4MHBmZbKzNPpaIY13wNdqolFymMKrhGajIR5BEm6+DQplbmRvYmoNCnhyZWYNCjAgMzUNCjAwMD UvAFFvZONpNsL6YqZyYm4WEFRmOOXoSXXtOlHkKUXmOXGcDDnhKNAnRVZaNsB3XOIvGWTbQU8ZDtQqWR TmQcTzCZOnONUaBKRqav1RISTfMEQdFSX1IkLxGJUa IONvAJvfHVGpOAFuYTBxSJYpDIUpMP8DTuAhFUEcWHK2PaqgGOGdLOTbom0XCFQnZMEiRjW5DTQlRLKr YAYyIMvmZOCrFRY4KYBnTQRxWBEvSI7BMeQgWDYxOBf2JVOsJTKiDYArpv1MGDIcQDYiIZs2QDYfDXYy PBEfUSylJZDpIIFlAsblXGBiVJCoRS7GYlVgBWRrFG R8VtXlRDVrKOMcmy5ZMIOvSVUsITuyDLTmWEVmIVByIGarDJIlOJT2CTN3OVFoNBWvPZ1ZXzHrIWQbER eeNiMtADAyKLEvml9XQYKpLONcQwXeGZCeYSWaRXPoNBjaGSKfCDO1MVt0ACDmQXQsEW0DVqYsACQoKT tzKVNtZSDxIVUtkv8AWYVbJKDdISE7TCHuCIXeZNOe VVtzZCBdZQL6GHT3ICEuLZJtDX3OXzUwUWCiVRz8RtrjOJWmGZWlxx7YRAHdJYWbGEipGoSpSBLbYYCm RRtiJVFyHUJzDpG4ESZvKCUaAG5XQiEfQNOiFpG0IYNrTBQpUIZhbo7MFLKnXKNsAIv6YTHdGOTjTOKz HWtaHZViZZHbTKJgXLEhNWUpWR8OEhSbLTMjNuIuXW dxYYRnNMQnqb4XJYHlMZDjWoWrNPMlKDCmJTNlVRzwFXRoIRYyVJC8YTRyOETcGZ4OIqIwVNLiNdY2DJ zqEHBeIPRxjo4KONJwPLSuRNXxTALzVIXfVZGqAXsiTBDbKJL7ICu5ILGnOIYxEW4FKfQyGVDaKjA2KN EeCNUsZRVzgf0NDUVsVOQxTLlnMbZmDZBeXIZjBTt2 ftBjgXNcXRf0QN4YE3AqhfZdHlPULh7Vm905GKD8HDZxFp7AK5ngAp2rXSRjRTVXLq6NPDv2TkFsMjRi IuFqVXDiIoZzZAYsEas7NSTdROM1LsYbGeQ+XEgyBZQmYuZ8HqJ2X6BdEOF4YSKjTIB5OiL8FeDvEDP3 Io5xXCIHJe1+AYyqmVXfdMzcISAVLaS4HZOlFTveIBEAUf6H Procedure Social History Code Duration Value Status Description Data Source(s ) Smoking 11/14/2020 12:00:00 AM EDT Current Smoker completed Curre nt Smoker eCW1 ([facility]) Alcohol intake 06/24/2020 12:00:00 AM EDT Current non-d scot of alcohol (finding) completed Current non-drinker of alcohol (finding) [facility] Tobacco use and exposure 06/24/2020 12:00:00 AM EDT Never used co mpleted Never used [facility] Smoking 06/24/2020 12:00:00 AM EDT Never smoker completed Never s [facility] Vital Signs ID Date Data Source UNK Name Value Range Interpretation Code Description Data Source(s) Body weight 132 [lb_av] 132 [lb_av] eCW1 ([facility]) Body weight 59.87 kg 59.87 kg eCW1 ([facility]) Body height 64 [in_i] 64 [in_i] eCW1 ([facility]) Body mass index (BMI) [Ratio] 22.66 kg/m2 22.66 kg/m2 eCW1 ([facility]) Systolic blood pressure 118 mm[Hg] 118 mm[Hg] e CW1 ([facility]) Diastolic blood pressure 68 mm[Hg] 68 mm[Hg] eCW1 ([facility]) Patient Treatment Plan of Care Planned Activity Planned Date Details Description Data Source (s) Clobetasol Propionate 0.5 MG/ML Topical Cream 11/14/2020 12:00:00 A M EDT eCW1 ([facility]) BD Insulin Syringe U/F 30G X 1/2" 0.5 ML (Insulin Syri nge-Needle U-100) 06/24/2020 12:00:00 AM [facility] Pen Wayan 31G X 5 MM 06/24/2020 12:00:00 AM [facility] Contour Next Test In Vitro Strip (glucose blood) 06/24/2020 12:00:0 0 AM [facility] Acetone (Urine) Test In Vitro Strip 06/24/2020 12:00:00 AM [facility] Contour Next Test In Vitro Strip (glucose blood) 05/03/2020 12:00:0 0 AM [facility] Insulin Lispro 100 UNT/ML Injectable Solution 05/03/2020 12:00:00 A M [facility] Basaglar KwikPen 100 UNIT/ML Subcutaneou s Solution Pen-injector (insulin glargine) 05/03/2020 12:00:00 AM EDT [facility] Lancets 30G 04/26/2020 12:00:00 AM EST [facility] BD Insulin Syringe U/F 30G X 1/2" 0.5 ML (Insulin Syri nge-Needle U-100) 04/26/2020 12:00:00 AM [facility] Pen Wayan 31G X 5 MM 11/24/2019 12:00:00 AM [facility] Acetone (Urine) Test In Vitro Strip 09/14/2019 12:00:00 AM [facility]
[2020-12-28 13:27] LABS: BASO % 0.5 % (0.0-1.0); EOS % 0.3 % (0.0-3.0); HEMATOCRIT 44.1 % (36.0-47.0); HEMOGLOBIN 14.4 g/dl (12.0-15.5); LYMPH # 1.4 10^3/uL (1.5-5.0); MEAN CORPUSCULAR HEMOGLOBIN 30.8 pg (27.0-33.0); MEAN CORPUSCULAR HGB CONC 32.7 g/dl (32.0-36.5); MEAN CORPUSCULAR VOLUME 94.2 fl (80.0-96.0); MONO # 0.5 10^3/uL (0.0-0.8); MONO % 5.8 % (2.0-8.0); NEUTROPHILS # 6.8 10^3/uL (1.5-8.5); NEUTROPHILS % 76.8 % (36.0-66.0); RED BLOOD COUNT 4.68 10^6/uL (4.00-5.40); WHITE BLOOD COUNT 8.8 10^3/uL (4.0-10.0)
[2020-12-28] MEDS ORDERED: HumuLIN R (REGULAR) INSULIN (NovoLIN R) **100U/ML** PER UNIT IV ONE (13:30)
--- NOTE | 2020-12-28 13:55 | REP ---
INDICATION: cough, sob. COMPARISON: None. TECHNIQUE: PA and lateral FINDINGS: The superior mediastinal structures are midline. The cardiac silhouette is unremarkable in size, shape, and position. The diaphragmatic surfaces of the lungs are regular, and the costophrenic angles are clear. The pulmonary freeman are clear. The imaged osseous structures are intact. IMPRESSION: There is no acute cardiopulmonary disease. <Electronically signed by Felice Heredia > 12/28/20 [id number]
[2020-12-28 14:04] LABS: RSV AMPLIFICATION NEGATIVE (NEGATIVE)
[2020-12-28 15:06] LABS: INR 0.94
[2020-12-28 15:07] LABS: PARTIAL THROMBOPLASTIN TIME 24.1 SECONDS (25.9-37.0)
[2020-12-28 15:10] LABS: D-DIMER QUANT 725.26 ng/ml (<500)
[2020-12-28] MEDS ORDERED: NS 1,000 ML IV SCH (15:30)
[2020-12-28 15:33] LABS: C REACTIVE PROTEIN QUANTITATIV 0.51 MG/DL (0.00-0.30); FERRITIN 151 NG/ML (8-252); LDH LACTATE DEHYDROGENASE 403 U/L (84-246); MAGNESIUM LEVEL 1.9 MG/DL (1.8-2.4)
--- OUTSIDE RECORDS SUMMARY | 2020-12-28 15:54 | CCD ---
Author Author [facility] Organization [facility] Address Unknown Phone Unavailable Care Team Providers Care Director Safety Name Role Phone PERRY CASANOVA Unavailable Unavailable Venkata, J Kelly ROOF FIXER Unavailable Unavailable Venkata, J Kelly ROOF FIXER Unavailable Unavailable Venkata, J Kelly ROOF FIXER Unavailable Unavailable Venkata, J Kelly ROOF FIXER Unavailable Unavailable Venkata, J Kelly ROOF FIXER Unavailable Unavailable Venkata, J Kelly ROOF FIXER Unavailable Unavailable Venkata, J Kelly ROOF FIXER Unavailable Unavailable Venkata, J Kelly ROOF FIXER Unavailable Unavailable Venkata, J Kelly ROOF FIXER Unavailable Unavailable Venkata, J Kelly ROOF FIXER Unavailable Unavailable Venkata, J Kelly ROOF FIXER Unavailable Unavailable Venkata, J Kelly ROOF FIXER Unavailable Unavailable Venkata, J Kelly ROOF FIXER Unavailable Unavailable Venkata, J Kelly ROOF FIXER Unavailable Unavailable Venkata, J Kelly ROOF FIXER Unavailable Unavailable Venkata, J Kelly ROOF FIXER Unavailable Unavailable Venkata, J Kelly ROOF FIXER Unavailable Unavailable Venkata, J Kelly ROOF FIXER Unavailable Unavailable Venkata, J Kelly ROOF FIXER Unavailable Unavailable Venkata, J Kelly ROOF FIXER Unavailable Unavailable Venkata, J Kelly ROOF FIXER Unavailable Unavailable Venkata, J Kelly ROOF FIXER Unavailable Unavailable Venkata, J Kelly ROOF FIXER Unavailable Unavailable Venkata, J Eklly ROOF FIXER Unavailable Unavailable Venkata, J Kelly ROOF FIXER Unavailable Unavailable Venkata, J Kelly ROOF FIXER Unavailable Unavailable Venkata, J Kelly ROOF FIXER Unavailable Unavailable Venkata, J Kelly ROOF FIXER Unavailable Unavailable Venkata, J Kelly ROOF FIXER Unavailable Unavailable Venkata, J Kelly ROOF FIXER Unavailable Unavailable Venkata, J Kelly ROOF FIXER Unavailable Unavailable Venkata, J Kelly ROOF FIXER Unavailable Unavailable Venkata, J Kelly ROOF FIXER Unavailable Unavailable Venkata, J Kelly ROOF FIXER Unavailable Unavailable Venkata, J Kelly ROOF FIXER Unavailable Unavailable Venkata, J Kelly ROOF FIXER Unavailable Unavailable Venkata, J Kelly ROOF FIXER Unavailable Unavailable Venkata, J Kelly ROOF FIXER Unavailable Unavailable Venkata, J Kelly ROOF FIXER Unavailable Unavailable Venkata, J Kelly ROOF FIXER Unavailable Unavailable Ingris Pizarro MD Unavailable Unavailable [...] Unavailable Ingris Pizarro MD Unavailable Unavailable Ingris Pizraro MD Unavailable Unavailable Ingris Pizarro MD Unavailable [...] is protected by Article 27-F of the [facility] Public Health law. If you continue you may have access to information: Regarding HIV / AIDS; Provided by facilities licensed or operated by the [facility] Office of Mental Health; or Provided by the [facility] Office for People With Developmental Disabilities. If such information is present, then the following [facility] mandated warning applies: This information has [...] law may result in a fine or skilled nursing sentence or both. A general authorization for the release of medical or other information is NOT sufficient authorization for further disc losure. Allergies and Adverse Reactions Type Description Substance Reaction Status Data Source(s ) Propensity to adverse reactions NO KNOWN ALLERGIES NO KNOWN ALLERGIES [facility] Family History Family Member Name Family Member Gender Family Member Status Date o f Status Description Data Source(s) Unknown Female Problem [facility] ([facility]) Encounters Encounter Providers Location Date Indications Data Source(s ) Out[place] [address] [facility] [address] 11/14/2020 12:00:00 AM EDT eCW1 ([facility]) Outpatient Attender: Kelly Hastings NP 10/12/2020 12:00:00 AM T [facility] Outpatient Attender: Kelly Hastings NP [id number] 08/2020 12:00:00 AM EDT - 06/24/2020 10:20:08 AM EDT Type 1 diabetes mellitus with hyperglycemia [facility] Type 1 diabetes mellitus with hyperglyce eloisa Outpatient Attender: Kelly Hastings NP 04/22/2020 12:00:00 AM [facility] Outpatient Attender: Kelly Hastings NP 04/19/2020 12:00:00 AM [facility] Outpatient Attender: PERRY Saucedaender: Ingris Pizarro MD 12/21/2019 12:00:00 AM [facility] Outpatient Attender: Kelly Hastings NP 12/16/2019 12:00:00 AM [facility] Medications Medication Brand Name Start Date Product Form Dose Route Admi nistrative Instructions Pharmacy Instructions Status Indications Reaction Description Data Source(s) Clobetasol Propionate 0.5 MG/ML Topical Cream Clobetas ol Propionate 0.05 % Clobetasol Propionate 0.05 % 11/14/2020 12:00:00 AM EDT 1.0 {applicat ion} active Clobetasol Propionate 0.05 % eCW1 ([facility]) Contour Next Test In Vitro Strip (glucose blood) 8827-9903-2 5 06/24/2020 12:00:00 AM EDT active Type 1 diabetes mellitus with hyperglycemia Use as directed to check blood glucose 6 times daily. Dx E10.65 [facility] Type 1 diabetes mellitus with hyperglyce eloisa Pen [place] 31G X 5 MM [id number] 06/24/2020 12:00:00 AM EDT 1 {each} Does not apply active Type 1 diabetes mellitus with hyperg lycemia 1 each by Does not apply route nightly Use as directed once daily with basaglar injection incase of pump failure. Dx E10.65 [facility] Type 1 diabetes mellitus with hyperglyce eloisa Acetone (Urine) Test In Vitro Strip [id number] 06/24/2020 12:00:00 AM EDT active Type 1 diabetes mellitus with hyperglycemia Ketostix. Check urine ketones when glucose above 250 mg/dl for two tests in a row and/or with illness. MDD:10. Dx code: E10.65 [facility] Type 1 diabetes mellitus with hyperglyce eloisa BD Insulin Syringe U/F 30G X 1/2" 0.5 ML (Insulin Syri nge-Needle U-100) [id number] 06/24/2020 12:00:00 AM EDT a ctive Type 1 diabetes mellitus with hyperglycemia Use as directed. USE DIRECTED FOUR TI MES A DAY [facility] Type 1 diabetes mellitus with hyperglyce eloisa Insulin Lispro 100 UNT/ML Injectable Tresa ution Insulin Lispro 100 UNIT/ML Subcutaneous Solution (Admelog) Insulin Lispro 100 UNIT/ML Subcutaneous Solution (Admelog) 05/03/2020 12:00:00 AM EDT act [facility] Type 1 diabetes mellitus with hyperglycemia Subq continual infusion via insuiln pump. Max Daily Dose inclusive of priming and titration: 80 units. Dx code:E10.65 [facility] Type 1 diabetes mellitus with hyperglyce eloisa Contour Next Test In Vitro Strip (glucose blood) 6277-2410-2 5 05/03/2020 12:00:00 AM EDT aborted Type 1 diabetes mellitus with hyperglycemia Use as directed to check blood glucose 6 times daily. Dx E10.65 [facility] Type 1 diabetes mellitus with hyperglyce eloisa Basaglar KwikPen 100 UNIT/ML Subcutaneou s Solution Pen-injector (insulin glargine) 0680-6863-48 05/03/2020 12:00:00 AM EDT active Type 1 diabetes mellitus with hyperglycemia In case of pump f ailure, inject 35 units into skin nightly. MDD 60 units with titration and priming. Dx:E10.65 [facility] Type 1 diabetes mellitus with hyperglyce eloisa Lancets 30G [id number] 04/26/2020 12:00:00 AM EST active Type 1 diabetes mellitus with hyperglycemia Use as directed. Use as directed to test 6 times daily. Dx: E10.65. [facility] Type 1 diabetes mellitus with hyperglyce eloisa BD Insulin Syringe U/F 30G X 1/2" 0.5 ML (Insulin Syri nge-Needle U-100) [id number] 04/26/2020 12:00:00 AM EST memo borted Type 1 diabetes mellitus with hyperglycemia USE DIRECTED FOUR TIMES A DAY [facility] Type 1 diabetes mellitus with hyperglyce eloisa Pen [place] 31G X 5 MM [id number] 11/24/2019 12:00:00 AM EDT 1 {each} Does not apply aborted Type 1 diabetes mellitus with hyperg lycemia 1 each by Does not apply route nightly Use as directed once daily with basaglar injection incase of pump failure. Dx E10.65 [facility] Type 1 diabetes mellitus with hyperglyce eloisa Acetone (Urine) Test In Vitro Strip [id number] 09/14/2019 12:00:00 AM EDT aborted Type 1 diabetes mellitus with hyperglycemia Ketostix. Check urine ketones when glucose above 250 mg/dl for two tests in a row and/or with illness. MDD:10. Dx code: E10.65 [facility] Type 1 diabetes mellitus with hyperglyce eloisa Insurance Providers Payer name Policy type / Coverage type Policy ID Covered constitution party ID Covered constitution party's relationship to mendoza Policy Mendoza Plan Information EXCELL I [id number] Self [id number] [facility] [id number] S [id number] [facility] [id number] S [id number] [place] [id number] S [id number] [place] [id number] S [id number] [facility] [id number] S [id number] [facility] [id number] S [id number] [facility] [id number] S [id number] [facility] [id number] S [id number] [facility] [id number] S [id number] [facility] [id number] S [id number] [facility] I [id number] Self [id number] FORMERLY [facility] COMMUNITY PLAN MCDHMO [id number] SP [id number] BLUE CROSS [id number] S [id number] MEDICAID GME W [id number] S [id number] [facility] COMM PLAN DAHLIA W [id number] S [id number] [facility] COMM PLAN DAHLIA W UNAVAILABLE S UNAVAILABLE BLUE CHOICE OPTN FHP O [id number] S [id number] FORMERLY [facility], [facility] COMMUNITY PLAN MCDO [id number] SP [id number] BLUE CROSS [id number] S [id number] FORMERLY [facility], [facility] COMMUNITY PLAN XIX [id number] 18 [id number] FORMERLY [facility] COMMUNITY PLAN XIX [id number] 18 [id number] MEDICAID GME [id number] S [id number] [facility] [id number] S [id number] [facility] COMMUNITY [facility] [id number] SP [id number] SELF PAY SP [facility] Community Plan Commercial [id number] Self [id number] [facility] Commercial [id number] Self [id number] [facility] Plan Commercial [id number] Self SELF-PAY UNAVAILABLE UNAVAILA BLE BLUE CROSS [id number] S [id number] BLUE CROSS [id number] S [id number] BLUE CROSS [id number] S [id number] [employer] [id number] S [id number] Problems, Conditions, and Diagnoses Code Display Name Description Problem Type Effective Dates Data Source(s) R21 Rash and other nonspecific skin eruption Rash and other nonspecific skin eruption Diagnosis 06/24/2020 09:13:01 AM EDT [facility] 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) Problem 11/14/2020 12:00:00 AM EDT eCW1 ([facility]) Surgeries/Procedures No Information Results ID Date Data Source [id number] 06/24/2020 10:11:55 AM EDT [facility] Name Value Range Interpretation Code Description Data Lety rce(s) Supporting Document(s) Progress Note [facility] FTCBTl3vLqQBMoJc80/ZZZveXCUru8ImBQrdXDw5VTnhGCWjX1HzPHE9yJ3yZPF4XRvHEsXyBqXhCHR1 lbm [file] /jAk9IjJgyovS58FW/JZDa+n2Jkh11vWdEzmE0uTKj2M+5Bwq9+e1NxpZU9N/José Miguel+jsub3olNLTnjac8 [file] ICAgICAgICAgICAgICAgICAgICAgICAgICAgICAgIC AgICAgICAgICAgICAgICAgDQogICAgICAgICAgICAgICAgICAgICAgICAgICAgICAgICAgICAgICAgIC AgICAgICAgICAgICAgICAgICAgICAgICAgICAgICAgICAgICAgICAgICAgICAgICAgICAgICAgICAgDQ ogICAgICAgICAgICAgICAgICAgICAgICAgICAgICAg ICAgICAgICAgICAgICAgICAgICAgICAgICAgICAgICAgICAgICAgICAgICAgICAgICAgICAgICAgICAg ICAgICAgICAgDQogICAgICAgICAgICAgICAgICAgICAgICAgICAgICAgICAgICAgICAgICAgICAgICAg ICAgICAgICAgICAgICAgICAgICAgICAgICAgICAgIC AgICAgICAgICAgICAgICAgICAgDQogICAgICAgICAgICAgICAgICAgICAgICAgICAgICAgICAgICAgIC AgICAgICAgICAgICAgICAgICAgICAgICAgICAgICAgICAgICAgICAgICAgICAgICAgICAgICAgICAgIC AgDQogICAgICAgICAgICAgICAgICAgICAgICAgICAg ICAgICAgICAgICAgICAgICAgICAgICAgICAgICAgICAgICAgICAgICAgICAgICAgICAgICAgICAgICAg ICAgICAgICAgICAgDQogICAgICAgICAgICAgICAgICAgICAgICAgICAgICAgICAgICAgICAgICAgICAg ICAgICAgICAgICAgICAgICAgICAgICAgICAgICAgIC AgICAgICAgICAgICAgICAgICAgICAgDQogICAgICAgICAgICAgICAgICAgICAgICAgICAgICAgICAgIC AgICAgICAgICAgICAgICAgICAgICAgICAgICAgICAgICAgICAgICAgICAgICAgICAgICAgICAgICAgIC AgICAgDQogICAgICAgICAgICAgICAgICAgICAgICAg ICAgICAgICAgICAgICAgICAgICAgICAgICAgICAgICAgICAgICAgICAgICAgICAgICAgICAgICAgICAg ICAgICAgICAgICAgICAgDQogICAgICAgICAgICAgICAgICAgICAgICAgICAgICAgICAgICAgICAgICAg ICAgICAgICAgICAgICAgICAgICAgICAgICAgICAgIC JlRKNaCSGdNCRpTINkQVVqZFWvBYGgIBYsIOn5E4amNRNyPFBqOF8hMCy8Ak6+VFeLSjNsSLO7qqDyuE 8FTA5ke1VmYPhzSQPkn9QuBWc6ER3OMILzAEktEI9SZCohia6MNGDgDFCuaKNCj7ufNqRvMIR4DPRdPj eeDQ2EOTPjP5ftpbMxAIFkUASVOK9KHlGeG7FstP69 IDENCj4+DLtxguYcPdeXAlFvAEFmg6LzFAu8EP1UZWUfYsnvv7JtSjKeRBXAZGndGV9OYKQ9XNDeEGSd Vo6NCCVuK285yjVdJN8DXh8ONeNsOG0wjk9NItLlFVDhVpsOLqt7HTwwAF4SyYLsMBbHvb6aykWcajDG k3MhcrPpnSGNhVVsGH4tC4SzTDe7VMpwOWPRQGZ9HJ AgWi7wOFNfIGV8BxEqBLGGEL8JZIMnPUQocGHePLNbKXNNTT7CSVneLSH1IKTzzoOavSZzSAldNQ6ZXC JlbnQgMjIgMCBSDQo+Hr6ELW2ac3OuZCewSDJoIL6rwb8IFYdFTySfZ4C5gJYzQ9P3VSwmEk4UQZQpGT KrAnZvDSUSXEzvVA7HAG1pqgF3NC3WiFUkZLArSGJl dHRfFPt1I63csXSnEDccTG0NQLO+Gustavo+Rz6EEGNsJRPkJIRcPvFbAOZZLbFkM4GrJ5HIf1YrQ7AtNF47 wEdjzyPtWThiMY5BDS8xRPMwXWDNCK6ShFWgoF5pzcHeXaQiEGHPWnHhG24adTTyGAXvJREkWZUdGu9P MFTyY4PvunLkfIcaclJzWDXvQLIZCH4ONMjdrrLixM JkpFzfXL54sIbkCL3GUq9CSjOnRI7qec6AsDLiBb0ITIVgTB4ZYUFkECBsOKYmRNB6MNGqPjPsJDuhNC WsYBXdBBW0CUWeXBSpMT4ACiRdUXAuOnOdAVTxTXGkLNMarj4KMTVhRXMxBJtrVPIjTBOrSVOoIVgbEX BjDFQiRWM1XSTxPBObQC0AEzPuOIZkNMN2LeYwAZMf RQWhcp6EULMtMHRtJgvyLPWrWOCiBBHkJBipHKHyWCH3LovoYDSsGSOhMH5CFqMzBKAhGAC2YNqoZHQr EWUqtz4CBEKfBDNcCGC8TOJzKXPiXLTvLQzfPCSmBFB3BWV7BYGuENLkRL9MPwDbUZEiHQRuVkucGUTh XXScfg9TTGSzLGNsWsEiDlSoLMZsWJOtAJkeKFLzTP R7PyyaFGEpDSWoEW6XEzWvNOVzZWiwLZdjKRCqUJIgpr0OAZMpBGUzYUN1TyGjMYPsLASmYYkwYYKdBX A5BNR2IJGtEAHqUX5ZOgVeKECfIVj9VTFcUQIlHURtfi6TRVIiZPOoBOZiItChNLZqDKIzTJliWFGfVX P5HFG7CQJyWOCqHS1HWgDkHXCkFRp9ZdsdSZAdNTGr jx7TVTMdEGNqEJX3WBTxDSMbPFMoYJiuTSVcRCVsEXUjRGAkRVOeFW9GHfWzQBOxLiJ8RNWyCTNgDFWy px2AHJNhXQGwSzR3NwMgSLLcZDUrXEe3loPvbFIsLRr1YY1GJ3NohlNnMuDLXe1Fv565AQQ7UUKlSv6V T6ymEm2qCPGmNIKIFr7WQMo5MoUxXIA0LgH4CcTyGi BiO2C8BgVkCKK8LMLmLGqtTQo+CSeaNHW1OMvlFJsaZSKzRhH7NMilGHA2DcnjYTK7ACJ3RZ4kBAMNYm 4+WSqmtPHguEazUSKHNhUiDos2ZRvtEIHHTg4N ID Date Data Source [id number] 06/24/2020 10:11:49 AM EDT [facility] Name Value Range Interpretation Code Description Data Lety rce(s) Supporting Document(s) Progress Note [facility] RFPUFf3qYeUMEcWr91/HDEhsFDQwr4SiXOhkOVx5KHyqTFLmJ9ElFVM6dP0jBZB3RNzKVbSbGnMfFGK3 lbm [file] Ma0aRFGRYd4+YBktcJXucFvfZDLDFkY0YJBiQSalIWBCIj7D Procedure Social History Code Duration Value Status Description Data Source(s ) Smoking 11/14/2020 12:00:00 AM EDT Current Smoker completed Curre nt Smoker eCW1 ([facility]) Alcohol intake 06/24/2020 12:00:00 AM EDT Current non-d scot of alcohol (finding) completed Current non-drinker of alcohol (finding) [facility] Tobacco use and exposure 06/24/2020 12:00:00 AM EDT Never used co mpleted Never used [facility] Smoking 06/24/2020 12:00:00 AM EDT Never smoker completed Never s [facility] Vital Signs ID Date Data Source UNK Name Value Range Interpretation Code Description Data Source(s) Body weight 132 [lb_av] 132 [lb_av] eCW1 ([facility]) Body weight 59.87 kg 59.87 kg eCW1 ([facility]) Body height 64 [in_i] 64 [in_i] eCW1 ([facility]) Body mass index (BMI) [Ratio] 22.66 kg/m2 22.66 kg/m2 eCW1 ([facility]) Systolic blood pressure 118 mm[Hg] 118 mm[Hg] e CW1 ([facility]) Diastolic blood pressure 68 mm[Hg] 68 mm[Hg] eCW1 ([facility]) Patient Treatment Plan of Care Planned Activity Planned Date Details Description Data Source (s) Clobetasol Propionate 0.5 MG/ML Topical Cream 11/14/2020 12:00:00 A M EDT eCW1 ([facility]) BD Insulin Syringe U/F 30G X 1/2" 0.5 ML (Insulin Syri nge-Needle U-100) 06/24/2020 12:00:00 AM [facility] Pen [place] 31G X 5 MM 06/24/2020 12:00:00 AM [facility] Contour Next Test In Vitro Strip (glucose blood) 06/24/2020 12:00:0 0 AM [facility] Acetone (Urine) Test In Vitro Strip 06/24/2020 12:00:00 AM [facility] Contour Next Test In Vitro Strip (glucose blood) 05/03/2020 12:00:0 0 AM [facility] Insulin Lispro 100 UNT/ML Injectable Solution 05/03/2020 12:00:00 A M [facility] Basaglar KwikPen 100 UNIT/ML Subcutaneou s Solution Pen-injector (insulin glargine) 05/03/2020 12:00:00 AM EDT [facility] Lancets 30G 04/26/2020 12:00:00 AM EST [facility] BD Insulin Syringe U/F 30G X 1/2" 0.5 ML (Insulin Syri nge-Needle U-100) 04/26/2020 12:00:00 AM [facility] Pen [place] 31G X 5 MM 11/24/2019 12:00:00 AM [facility] Acetone (Urine) Test In Vitro Strip 09/14/2019 12:00:00 AM [facility]
[2020-12-28] MEDS ORDERED: ONDANSETRON 4MG/2ML VIAL IV PRN (16:45)
--- NOTE | 2020-12-28 16:47 | HPEPDOC ---
General Date of Admission Dec 28, 2020 at 15:26 Date of Service: Dec 28, 2020 Chief Complaint The patient is a 30-year-old female admitted with a reason for visit of Covid- 19,Dka. Source: Patient, RN/MD History of Present Illness 30-year-old female with type 1 diabetes presented to the emergency room with 3 days history of cough, sore throat, chills, generalized malaise and weakness, nausea and vomiting. She reports that she has been so weak and tired that she was unable to climb 3 flights of stairs to reach her apartment and 2 days ago her had to carry her up the stairs. She has been unable to keep any food or liquids down. Her sugars have been running around 250 at home. She denies any diarrhea or abdominal pain. She denies any shortness of breath. In the ED lab work showed a sugar of greater than 500, beta hydroxybutyrate of 46, pH of 7.32, bicarb of 11, sodium of 125. Labs are suggestive of DKA and she tested positive for COVID. Patient was admitted for DKA with a Covid infection. Home Medications Scheduled Insulin Glargine,Hum.rec.anlog (Basaglar Kwikpen U-100) 100 Unit/1 Ml Insuln.pen, 40 UNIT SC ASDIRECTED, (Reported) Insulin Lispro (Admelog) 100 Unit/1 Ml Vial, 10 UNIT SC ASDIRECTED, (Reported) Allergies Coded Allergies: No Known Allergies (Unverified , 09/09/19) Past Medical History Medical History Type 1 diabetes from the age of 3 years Surgical History section x2 Family History Significant Family History: Diabetes (And maternal aunt, maternal great grandfather) Social History * Smoker: other (Vapes nicotine) Alcohol: Denies Drugs: denies A-FIB/CHADSVASC A-FIB History Current/History of A-Fib/PAF?: No Review of Systems Constitutional: Reports: Chills, Malaise, Weakness, Fatigue; Denies: Fever, Night Sweats Eyes: Denies: Pain, Vision change ENT: Reports: Sinus Congestion, Sore Throat; Denies: Head Aches, Ear Pain, Dysphagia Skin: Denies: Rash, Lesions, Breakdown Pulmonary: Reports: Cough; Denies: Dyspnea Cardiovascular: Denies: Chest Pain, Palpitations, Orthopnea, Paroxysmal Noc. Dyspnea, Lt Headedness Gastrointestinal: Reports: Nausea, Vomiting; Denies: Abdominal Pain, Diarrhea Hematologic: Denies: Bruising, Bleeding Excessively Musculoskeletal: Denies: Neck Pain, Back Pain, Joint Pain, Muscle Pain, Spasms Neurological: Denies: Weakness, Numbness, Change in speech, Confusion Physical Examination General Exam: Positive: Alert, Cooperative, No Acute Distress Eye Exam: Positive: PERRLA, Conjunctiva & lids normal, EOMI; Negative: Sclera icteric ENT Exam: Positive: Atraumatic, Mucous membr. moist/pink, Pharynx Normal Neck Exam: Positive: Supple; Negative: JVD, thyromegaly Chest Exam: Positive: Clear to auscultation, Normal air movement Heart Exam: Positive: Rate Normal, Regular Rhythm, Normal S1, Normal S2; Negative: Murmurs, Rubs Abdomen Exam: Positive: Normal bowel sounds, Soft; Negative: Tenderness Extremity Exam: Positive: Normal pulses; Negative: Clubbing, Cyanosis, Edema Psych Exam: Positive: Memory Intact, Oriented x 3 Vital Signs Vital Signs Date Time Temp Pulse Resp B/P (MAP) Pulse Ox O2 Delivery O2 Flow Rate FiO2 12/28/20 10:32 99.7 96 16 134/70 (91) 98 Room Air Laboratory Data Labs 24H Laboratory Tests 2 12/28/20 11:53: Bedside Glucose (Misc Panel) 493H 12/28/20 12:39: Immature Granulocyte % (Auto) 0.6, Neutrophils (%) (Auto) 76.8H, Lymphocytes (%) (Auto) 16.0L, Monocytes (%) (Auto) 5.8, Eosinophils (%) (Auto) 0.3, Basophils (%) (Auto) 0.5, Neutrophils # (Auto) 6.8, Lymphocytes # (Auto) 1.4L, Monocytes # (Auto) 0.5, Eosinophils # (Auto) 0.0, Basophils # (Auto) 0.0, Nucleated Red Blood Cells % (auto) 0.0, Blood Gas Bicarbonate Standard 15.1L, Arterial Blood pH 7.326L, Arterial Blood Partial Pressure CO2 22.5L, Arterial Blood Partial P ressure O2 106.1H, Arterial Blood Total CO2 12.2L, Arterial Blood HCO3 11.5L, Arterial Blood Base Excess -12.3L, Arterial Blood Oxygen Saturation 98.1, Lactic Acid Level 1.0, B-Hydroxybutyrate > 46.00H, Coronavirus (COVID-19)(PCR) POSITIVEA, Influenza Type A (RT-PCR) NEGATIVE, Influenza Type B (RT-PCR) NEGATIVE, Respiratory Syncytial Virus (PCR) NEGATIVE 12/28/20 13:12: POC Beta HCG, Quantitative < 5.0 12/28/20 13:26: POC Glucose (Misc Panel) 586*H, POC Sodium (Misc Panel) 131L, POC Potassium (Misc Panel) 4.7, POC Chloride (Misc Panel) 99, POC Total CO2 (Misc Panel) 12.0L, POC Blood Urea Nitrogen (Misc Panel 11, POC Ionized Calcium (Misc Panel) 4.6, POC Creatinine (Misc Panel) 0.6, POC Hematocrit (Misc Panel) 48.0 12/28/20 14:36: Urine Color STRAW, Urine Appearance CLEAR, Urine pH 6.0, Urine Specific [place] 1.018, Urine Protein NEGATIVE, Urine Glucose (UA) 3+H, Urine Ketones 2+H, Urine Blood 1+H, Urine Nitrite NEGATIVE, Urine Bilirubin NEGATIVE, Urine Urobilinogen 0.2, Urine Leukocyte Esterase NEGATIVE, Urine WBC (Auto) 1, Urine RBC (Auto) 0, Urine Hyaline Casts (Auto) 0, Urine Bacteria (Auto) NEGATIVE, Urine Squamous Epithelial Cells 3, Urine Sperm (Auto) 12/28/20 14:45: Prothrombin Time 13.0, Prothromb Time International Ratio 0.94, Activated Partial Thromboplast Time 24.1L, Fibrinogen 333, D-Dimer, Quantitative 725.26H, Magnesium Level 1.9, Ferritin 151, Lactate Dehydrogenase 403H, C-Reactive Protein, Quantitative 0.51H 12/28/20 14:46: 12/28/20 15:28: Bedside Glucose (Misc Panel) 447H CBC/BMP Laboratory Tests 12/28/20 12:39 Microbiology Microbiology 12/28/20 Blood Culture, Received Pending 12/28/20 Blood Culture, Received Pending Assessment/Plan 30-year-old female with type 1 diabetes presented to the emergency room with 3 days history of cough, sore throat, chills, generalized malaise and weakness, nausea and vomiting. She reports that she has been so weak and tired that she was unable to climb 3 flights of stairs to reach her apartment and 2 days ago her had to carry her up the stairs. She has been unable to keep any food or liquids down. Her sugars have been running around 250 at home. She denies any diarrhea or abdominal pain. She denies any shortness of breath. In the ED lab work showed a sugar of greater than 500, beta hydroxybutyrate of 46, pH of 7.32, bicarb of 11, sodium of 125. Labs are suggestive of DKA and she tested positive for COVID. Patient was admitted for DKA with a Covid infection. DKA Likely precipitated by Covid infection She reports her last DKA was when she was 16 years old She used to be on insulin pump till last year when she moved from [facility]. Since then she has not been able to get the new insulin pump because of all the Covid restrictions. Patient received 2 L of fluid. We will start the patient on normal saline and insulin infusion Admission to ICU Fingerstick every hour Basic metabolic panel every 4 hours Covid infection With mild symptoms No respiratory issues at this time Chest x-ray no infiltrate We will continue to monitor for any worsening of Covid infection Plan / VTE VTE Prophylaxis Ordered?: Yes Misti Gunn MD Dec 28, 2020 16:47
[2020-12-28 17:38] LABS: ALBUMIN 3.1 GM/DL (3.2-5.2); ALT/SGPT 986 U/L (12-78); BILIRUBIN,TOTAL 0.6 MG/DL (0.2-1.0); BLOOD UREA NITROGEN 13 MG/DL (7-18); CALCIUM LEVEL 8.7 MG/DL (8.5-10.1); CARBON DIOXIDE LEVEL 10 MEQ/L (21-32); CHLORIDE LEVEL 98 MEQ/L (98-107); CREATININE FOR GFR 0.95 MG/DL (0.55-1.30); GLOMERULAR FILTRATION RATE > 60.0 (>60); GLUCOSE, FASTING 544 MG/DL (70-100); POTASSIUM SERUM 4.8 MEQ/L (3.5-5.1); SODIUM LEVEL 132 MEQ/L (136-145); TOTAL PROTEIN 6.6 GM/DL (6.4-8.2)
[2020-12-28] MEDS ORDERED: HOME MED LIST COMPLETE! XX SCH (17:45)
[2020-12-28 17:49] LABS: HEMOGLOBIN A1c 8.7 %
[2020-12-28 18:58] LABS: VENOUS BASE EXCESS -10.7 (-2.0-2.0); VENOUS HCO3 14.4 MEQ/L (23.0-27.0); VENOUS O2 SATURATION 97.3 % (60.0-80.0); VENOUS PARTIAL PRESSURE CO2 30.5 mmHg (38.0-50.0); VENOUS PARTIAL PRESSURE O2 103.9 mmHg (30.0-50.0); VENOUS PH 7.293 UNITS (7.330-7.430); VENOUS TOTAL CO2 15.4 MEQ/L (24.0-28.0)
[2020-12-28] MEDS ORDERED: INSULIN REGULAR IN 0.9 % NACL 100 UNIT in IV 1 EA IV SCH ×2 (19:00)
[2020-12-28 19:30] LABS: BLOOD UREA NITROGEN 9 MG/DL (7-18); CALCIUM LEVEL 8.1 MG/DL (8.5-10.1); CARBON DIOXIDE LEVEL 16 MEQ/L (21-32); CHLORIDE LEVEL 107 MEQ/L (98-107); GLOMERULAR FILTRATION RATE > 60.0 (>60); GLUCOSE, FASTING 257 MG/DL (70-100); POTASSIUM SERUM 4.5 MEQ/L (3.5-5.1); SODIUM LEVEL 137 MEQ/L (136-145)
[2020-12-28 20:00] VITALS: BP 124/67
[2020-12-28] MEDS ORDERED: KCL 20MEQ in NS 1000ML 1,000 ML IV SCH (20:25)
[2020-12-28] MEDS ORDERED: NACL 0.45% As Ordered ONE (20:34)
[2020-12-28] MEDS ORDERED: KCL As Ordered ONE (20:34)
[2020-12-28] MEDS: PANTOPRAZOLE 40MG VIAL (C9113 PER 1) IV SCH (20:57)
[2020-12-28] MEDS: KCL 20MEQ IN 0.45NS 1000ML 1,000 ML IV SCH ×2 (20:57→23:12)
[2020-12-28 21:00] VITALS: BP 124/57
[2020-12-28] MEDS: PIPERACILLIN/TAZOBACTAM SOD 4.5 GM in D5W MINI-BAG PLUS 50 ML IV SCH (22:00)
[2020-12-28] MEDS: INSULIN IV RATE CHANGE DOCUMENTATION ML/HR XX SCH ×2 (22:03→23:13)
[2020-12-28 23:00] VITALS: BP 107/54
[2020-12-28 23:23] LABS: ABG BASE EXCESS -11.2 (-2.0-2.0); ABG HCO3 13.1 MEQ/L (22.0-26.0); ABG O2 SATURATION 97.4 % (95.0-99.0); ABG PARTIAL PRESSURE CO2 25.6 mmHg (35.0-45.0); ABG PARTIAL PRESSURE O2 97.3 mmHg (75.0-100.0); ABG STANDARD HCO3 15.7 MEQ/L (22.0-26.0); ABG TOTAL CO2 13.9 MEQ/L (22.0-29.0); ABG pH (ARTERIAL) 7.326 UNITS (7.350-7.450)
[2020-12-28 23:41] LABS: BLOOD UREA NITROGEN 7 MG/DL (7-18); CALCIUM LEVEL 7.2 MG/DL (8.5-10.1); CARBON DIOXIDE LEVEL 14 MEQ/L (21-32); CHLORIDE LEVEL 111 MEQ/L (98-107); CREATININE FOR GFR 0.78 MG/DL (0.55-1.30); GLOMERULAR FILTRATION RATE > 60.0 (>60); GLUCOSE, FASTING 170 MG/DL (70-100); POTASSIUM SERUM 4.2 MEQ/L (3.5-5.1); SODIUM LEVEL 139 MEQ/L (136-145)
[2020-12-29] VITALS: BP 107/54
[2020-12-29] MEDS ORDERED: KCL 20MEQ IN D5/0.45NS 1000ML 1,000 ML IV SCH (00:10)
[2020-12-29] MEDS ORDERED: LEVEMIR (INSULIN DETEMIR) 1 UNITS/0.01ML SC ONE (00:10)
[2020-12-29 00:33] LABS: PHOSPHORUS LEVEL 2.4 MG/DL (2.5-4.9)
[2020-12-29] MEDS ORDERED: DEXTROSE 50% 50 ML SYRINGE IV PRN (03:20)
[2020-12-29] MEDS ORDERED: GLUCOSE 4GM CHEW TABLET PO PRN (03:20)
[2020-12-29] MEDS ORDERED: GLUCAGON INJ 1MG VIAL SC PRN (03:20)
[2020-12-29 04:00] VITALS: BP 99/65
[2020-12-29] MEDS: PIPERACILLIN/TAZOBACTAM SOD 4.5 GM in D5W MINI-BAG PLUS 50 ML IV SCH ×4 (04:20→21:27)
[2020-12-29 05:24] LABS: ACETONE/KETONE 25.68 MG/DL (<2.81); BLOOD UREA NITROGEN 6 MG/DL (7-18); CALCIUM LEVEL 7.6 MG/DL (8.5-10.1); CARBON DIOXIDE LEVEL 17 MEQ/L (21-32); CHLORIDE LEVEL 110 MEQ/L (98-107); CREATININE FOR GFR 0.83 MG/DL (0.55-1.30); GLOMERULAR FILTRATION RATE > 60.0 (>60); GLUCOSE, FASTING 148 MG/DL (70-100); MAGNESIUM LEVEL 1.7 MG/DL (1.8-2.4); PHOSPHORUS LEVEL 3.4 MG/DL (2.5-4.9); POTASSIUM SERUM 4.2 MEQ/L (3.5-5.1); SODIUM LEVEL 139 MEQ/L (136-145)
[2020-12-29] MEDS: MAG SULF 1GM/100ML (MAG RUN) 1 GM in IV 1 EA IV SCH ×2 (06:32→07:45)
[2020-12-29] MEDS: HumaLOG INSULIN (NovoLOG) PER UNIT SC SCH ×3 (06:33→17:40)
[2020-12-29 08:00] VITALS: BP 114/64
[2020-12-29] MEDS ORDERED: MAG SULF 1GM/100ML (MAG RUN) 1 GM in IV 1 EA IV SCH (08:00)
[2020-12-29] MEDS: ENOXAPARIN 40MG/0.4ML SYRINGE (J1650 PER 10MG) SC SCH (08:24)
[2020-12-29] MEDS: LEVEMIR (INSULIN DETEMIR) 1 UNITS/0.01ML SC SCH (08:24)
[2020-12-29] MEDS ORDERED: PANTOPRAZOLE 40MG VIAL (C9113 PER 1) IV SCH (09:00)
[2020-12-29] MEDS ORDERED: CEPACOL LOZENGE PO PRN (09:50)
--- NOTE | 2020-12-29 10:40 | IPNPDOC ---
Subjective Date Seen The patient was seen on 12/29/20. Subjective Chief Complaint/HPI Feeling much better. Nausea and vomiting has resolved, Tolerating diet. No respiratory symptoms today except for some sore throat and mild cough. Objective Physical Examination General Exam: Positive: Alert, Cooperative, No Acute Distress Eye Exam: Positive: PERRLA, Conjunctiva & lids normal, EOMI; Negative: Sclera icteric ENT Exam: Positive: Atraumatic, Mucous membr. moist/pink, Pharynx Normal Neck Exam: Positive: Supple; Negative: JVD, thyromegaly Chest Exam: Positive: Clear to auscultation, Normal air movement Heart Exam: Positive: Rate Normal, Regular Rhythm, Normal S1, Normal S2; Negative: Murmurs, Rubs Abdomen Exam: Positive: Normal bowel sounds, Soft; Negative: Tenderness Extremity Exam: Positive: Normal pulses; Negative: Clubbing, Cyanosis, Edema Skin Exam: Positive: Nl turgor and temperature; Negative: Rash, Breakdown Psych Exam: Positive: Memory Intact, Oriented x 3 Assessment /Plan Assessment 30-year-old female with type 1 diabetes presented to the emergency room with 3 days history of cough, sore throat, chills, generalized malaise and weakness, nausea and vomiting. She reports that she has been so weak and tired that she was unable to climb 3 flights of stairs to reach her apartment and 2 days ago her had to carry her up the stairs. She has been unable to keep any food or liquids down. Her sugars have been running around 250 at home. She denies any diarrhea or abdominal pain. She denies any shortness of breath. In the ED lab work showed a sugar of greater than 500, beta hydroxybutyrate of 46, pH of 7.32, bicarb of 11, sodium of 125. Labs are suggestive of DKA and she tested positive for COVID. Patient was admitted for DKA with a Covid infection. DKA Likely precipitated by Covid infection She reports her last DKA was when she was 16 years old She used to be on insulin pump till last year when she moved from [place] to [place]. Since then she has not been able to get the new insulin pump because of all the Covid restrictions. DKA Now resolved. Continue Levemir and lispro as per sliding scale FS Ac and HS. Procalcitonin > 0.5 so have placed on zosyn COVID infection With mild symptoms of sore throat, cold. No respiratory issues at this time Chest x-ray no infiltrate We will continue to monitor for any worsening of Resp symptoms Procalcitonin > 0.5 so have placed on zosyn Transaminitis likely due to COVID infection. No abdominal pain, Nausea and vomiting has resolved, Tolerated diet. Have ordered abdominal US. Plan/VTE VTE Prophylaxis Ordered?: Yes VS, I&O, 24H, Fishbone Vital Signs/I&O Vital Signs Date Time Temp Pulse Resp B/P (MAP) Pulse Ox O2 Delivery O2 Flow Rate FiO2 12/29/20 04:00 97.2 81 20 99/65 (76) 98 Room Air I&O- Last 24 Hours up to 6 AM 12/29/20 06:00 Intake Total 400 ml Output Total 2100 ml Balance -1700 ml Laboratory Data 24H LABS Laboratory Tests 2 12/28/20 11:53: Bedside Glucose (Misc Panel) 493H 12/28/20 12:39: Immature Granulocyte % (Auto) 0.6, Neutrophils (%) (Auto) 76.8H, Lymphocytes (%) (Auto) 16.0L, Monocytes (%) (Auto) 5.8, Eosinophils (%) (Auto) 0.3, Basophils (%) (Auto) 0.5, Neutrophils # (Auto) 6.8, Lymphocytes # (Auto) 1.4L, Monocytes # (Auto) 0.5, Eosinophils # (Auto) 0.0, Basophils # (Auto) 0.0, Nucleated Red Blood Cells % (auto) 0.0, Blood Gas Bicarbonate Standard 15.1L, Arterial Blood pH 7.326L, Arterial Blood Partial Pressure CO2 22.5L, Arterial Blood Partial Pressure O2 106.1H, Arterial Blood Total CO2 12.2L, Arterial Blood HCO3 11.5L, Arterial Blood Base Excess -12.3L, Arterial Blood Oxygen Saturation 98.1, Estimated Mean Plasma Glucose 203H, Hemoglobin A1c 8.7, Lactic Acid Level 1.0, B-Hydroxybutyrate > 46.00H, Coronavirus (COVID-19)(PCR) POSITIVEA, Influenza Type A (RT-PCR) NEGATIVE, Influenza Type B (RT-PCR) NEGATIVE, Respiratory Syncytial Virus (PCR) NEGATIVE 12/28/20 13:12: POC Beta HCG, Quantitative < 5.0 12/28/20 13:26: POC Glucose (Misc Panel) 586*H, POC Sodium (Misc Panel) 131L, POC Potassium (Misc Panel) 4.7, POC Chloride (Misc Panel) 99, POC Total CO2 (Misc Panel) 12.0L, POC Blood Urea Nitrogen (Misc Panel 11, POC Ionized Calcium (Misc Panel) 4.6, POC Creatinine (Misc Panel) 0.6, POC Hematocrit (Misc Panel) 48.0 12/28/20 14:36: Urine Color STRAW, Urine Appearance CLEAR, Urine pH 6.0, Urine Specific [place] 1.018, Urine Protein NEGATIVE, Urine Glucose (UA) 3+H, Urine Ketones 2+H, Urine Blood 1+H, Urine Nitrite NEGATIVE, Urine Bilirubin NEGATIVE, Urine Urobilinogen 0.2, Urine Leukocyte Esterase NEGATIVE, Urine WBC (Auto) 1, Urine RBC (Auto) 0, Urine Hyaline Casts (Auto) 0, Urine Bacteria (Auto) NEGATIVE, Urine Squamous Epithelial Cells 3, Urine Sperm (Auto) 12/28/20 14:45: Prothrombin Time 13.0, Prothromb Time International Ratio 0.94, Activated Partial Thromboplast Time 24.1L, Fibrinogen 333, D-Dimer, Quantitative 725.26H, Anion Gap 24H, Glomerular Filtration Rate > 60.0, Calcium Level 8.7, Magnesium Level 1.9, Ferritin 151, Total Bilirubin 0.6, Aspartate Amino Transf (AST/SGOT) 915H, Alanine Aminotransferase (ALT/SGPT) 986H, Alkaline Phosphatase 304H, Lactate Dehydrogenase 403H, C-Reactive Protein, Quantitative 0.51H, Total Protein 6.6, Albumin 3.1L, Albumin/Globulin Ratio 0.9L 12/28/20 14:46: Procalcitonin 0.56 12/28/20 15:28: Bedside Glucose (Misc Panel) 447H 12/28/20 16:58: Bedside Glucose (Misc Panel) 272H 12/28/20 18:49: Blood Gas Bicarbonate Standard 16.0, Venous Blood pH 7.293L, Venous Blood Partial Pressure CO2 30.5L, Venous Blood Partial Pressure O2 103.9H, Venous Bloo d Total Carbon Dioxide 15.4L, Venous Blood HCO3 14.4L, Venous Blood Oxygen Saturation 97.3H, Venous Blood Base Excess -10.7L, Anion Gap 14, Glomerular Filtration Rate > 60.0, Calcium Level 8.1L 12/28/20 19:23: Bedside Glucose (Misc Panel) 282H 12/28/20 20:47: Bedside Glucose (Misc Panel) 364H 12/28/20 21:59: Bedside Glucose (Misc Panel) 269H 12/28/20 23:05: Bedside Glucose (Misc Panel) 167H 12/28/20 23:06: Blood Gas Bicarbonate Standard 15.7L, Arterial Blood pH 7.326L, Arterial Blood Partial Pressure CO2 25.6L, Arterial Blood Partial Pressure O2 97.3, Arterial Blood Total CO2 13.9L, Arterial Blood HCO3 13.1L, Arterial Blood Base Excess - 11.2L, Arterial Blood Oxygen Saturation 97.4 12/28/20 23:10: Anion Gap 14, Glomerular Filtration Rate > 60.0, Calcium Level 7.2L, Phosphorus Level 2.4L 12/29/20 01:46: Bedside Glucose (Misc Panel) 171H 12/29/20 03:14: Bedside Glucose (Misc Panel) 235H 12/29/20 04:52: Anion Gap 12, Glomerular Filtration Rate > 60.0, Calcium Level 7.6L, Phosphorus Level 3.4#, Magnesium Level 1.7L, B-Hydroxybutyrate 25.68H CBC/BMP Laboratory Tests 12/28/20 12:39 12/28/20 14:45 12/28/20 18:49 12/28/20 23:10 12/29/20 04:52 Microbiology Microbiology 12/28/20 Blood Culture, Received Pending 12/28/20 Blood Culture, Received Pending Misti Gunn MD Dec 29, 2020 10:40
[2020-12-29 12:00] VITALS: BP 118/57
[2020-12-29] MEDS ORDERED: IBUPROFEN 400MG TAB PO PRN (13:55)
[2020-12-29 14:52] LABS: ALBUMIN 2.1 GM/DL (3.2-5.2); ALT/SGPT 577 U/L (12-78); BILIRUBIN,TOTAL 0.2 MG/DL (0.2-1.0); BLOOD UREA NITROGEN 5 MG/DL (7-18); CARBON DIOXIDE LEVEL 23 MEQ/L (21-32); CHLORIDE LEVEL 108 MEQ/L (98-107); CREATININE FOR GFR 0.79 MG/DL (0.55-1.30); GLOMERULAR FILTRATION RATE > 60.0 (>60); GLUCOSE, FASTING 147 MG/DL (70-100); POTASSIUM SERUM 4.1 MEQ/L (3.5-5.1); SODIUM LEVEL 137 MEQ/L (136-145); TOTAL PROTEIN 5.4 GM/DL (6.4-8.2)
[2020-12-29 16:00] VITALS: BP 122/74
[2020-12-29 19:05] VITALS: BP 118/57
[2020-12-29] MEDS: PANTOPRAZOLE 40MG VIAL (C9113 PER 1) IV SCH (19:52)
[2020-12-29] MEDS ORDERED: HumaLOG INSULIN (NovoLOG) PER UNIT SC SCH (21:00)
[2020-12-30] MEDS: PIPERACILLIN/TAZOBACTAM SOD 4.5 GM in D5W MINI-BAG PLUS 50 ML IV SCH ×2 (03:20→10:00)
[2020-12-30 06:23] LABS: BASO % 0.6 % (0.0-1.0); EOS # 0.1 10^3/uL (0.0-0.5); EOS % 1.1 % (0.0-3.0); HEMATOCRIT 37.6 % (36.0-47.0); HEMOGLOBIN 12.5 g/dl (12.0-15.5); LYMPH # 2.3 10^3/uL (1.5-5.0); LYMPH % 48.6 % (24.0-44.0); MEAN CORPUSCULAR HEMOGLOBIN 30.6 pg (27.0-33.0); MEAN CORPUSCULAR HGB CONC 33.2 g/dl (32.0-36.5); MEAN CORPUSCULAR VOLUME 92.2 fl (80.0-96.0); MONO # 0.5 10^3/uL (0.0-0.8); MONO % 9.9 % (2.0-8.0); NEUTROPHILS # 1.8 10^3/uL (1.5-8.5); NEUTROPHILS % 38.9 % (36.0-66.0); PLATELET COUNT, AUTOMATED 185 10^3/uL (150-450); RED BLOOD COUNT 4.08 10^6/uL (4.00-5.40); WHITE BLOOD COUNT 4.7 10^3/uL (4.0-10.0)
[2020-12-30 06:51] LABS: ALT/SGPT 473 U/L (12-78); BILIRUBIN,TOTAL 0.3 MG/DL (0.2-1.0); BLOOD UREA NITROGEN 9 MG/DL (7-18); CALCIUM LEVEL 8.3 MG/DL (8.5-10.1); CARBON DIOXIDE LEVEL 24 MEQ/L (21-32); CHLORIDE LEVEL 104 MEQ/L (98-107); CREATININE FOR GFR 0.76 MG/DL (0.55-1.30); GLOMERULAR FILTRATION RATE > 60.0 (>60); GLUCOSE, FASTING 274 MG/DL (70-100); POTASSIUM SERUM 4.2 MEQ/L (3.5-5.1); SODIUM LEVEL 137 MEQ/L (136-145); TOTAL PROTEIN 5.2 GM/DL (6.4-8.2)
[2020-12-30 06:52] LABS: ALBUMIN 2.1 GM/DL (3.2-5.2); ALT/SGPT 482 U/L (12-78); BILIRUBIN,DIRECT 0.1 MG/DL (0.0-0.2); BILIRUBIN,TOTAL 0.3 MG/DL (0.2-1.0); TOTAL PROTEIN 5.1 GM/DL (6.4-8.2)
[2020-12-30] MEDS: LEVEMIR (INSULIN DETEMIR) 1 UNITS/0.01ML SC SCH (08:38)
[2020-12-30] MEDS: ENOXAPARIN 40MG/0.4ML SYRINGE (J1650 PER 10MG) SC SCH (08:40)
[2020-12-30] MEDS: HumaLOG INSULIN (NovoLOG) PER UNIT SC SCH (08:40)
--- NOTE | 2020-12-30 11:03 | DS.PDOC ---
Discharge Summary General Date of Admission Dec 28, 2020 at 15:26 Date of Discharge 12/30/20 Discharge Summary PROCEDURES PERFORMED DURING STAY: [None]. DISCHARGE DIAGNOSES: DKA COVID-19 infection COMPLICATIONS/CHIEF COMPLAINT: Covid-19,Dka. HOSPITAL COURSE: 30-year-old female with type 1 diabetes presented to the emergency room with 3 days history of cough, sore throat, chills, generalized malaise and weakness, nausea and vomiting. She reports that she has been so weak and tired that she was unable to climb 3 flights of stairs to reach her apartment and 2 days ago her had to carry her up the stairs. She has been unable to keep any food or liquids down. Her sugars have been running ar ound 250 at home. She denies any diarrhea or abdominal pain. She denies any shortness of breath. In the ED lab work showed a sugar of greater than 500, beta hydroxybutyrate of 46, pH of 7.32, bicarb of 11, sodium of 125. Labs are suggestive of DKA and she tested positive for COVID. Patient was admitted for DKA with a Covid infection. DKA Likely precipitated by Covid infection She reports her last DKA was when she was 16 years old She used to be on insulin pump till last year when she moved from [place] to [place]. Since then she has not been able to get the new insulin pump because of all the Covid restrictions. DKA Now resolved. Continue home insulin regimen FS Ac and HS. No signs of any infection. Antibiotics were stopped. COVID infection With mild symptoms of sore throat, cold. No respiratory issues at this time Chest x-ray no infiltrate No development of respiratory symptoms. Will dc antibiotics. Transaminitis likely due to COVID infection. No abdominal pain, Nausea and vomiting has resolved, Tolerated diet. improving. DISCHARGE MEDICATIONS: Please see below. ALLERGIES: Please see below. PHYSICAL EXAMINATION ON DISCHARGE: VITAL SIGNS: Please see below. General Exam: Positive: Alert, Cooperative, No Acute Distress Eye Exam: Positive: PERRLA, Conjunctiva & lids normal, EOMI; Negative: Sclera icteric ENT Exam: Positive: Atraumatic, Mucous membr. moist/pink, Pharynx Normal Neck Exam: Positive: Supple; Negative: JVD, thyromegaly Chest Exam: Positive: Clear to auscultation, Normal air movement Heart Exam: Positive: Rate Normal, Regular Rhythm, Normal S1, Normal S2; Negative: Murmurs, Rubs Abdomen Exam: Positive: Normal bowel sounds, Soft; Negative: Tenderness Extremity Exam: Positive: Normal pulses; Negative: Clubbing, Cyanosis, Edema Skin Exam: Positive: Nl turgor and temperature; Negative: Rash, Breakdown Psych Exam: Positive: Memory Intact, Oriented x 3 LABORATORY DATA: Please see below. ACTIVITY: [As tolerated]. DIET: Carb consistent DISCHARGE PLAN: Home DISCHARGE INSTRUCTIONS: PMD in 2 weeks DISCHARGE CONDITION: [Stable]. TIME SPENT ON DISCHARGE: 35 minutes. Vital Signs/I&Os Vital Signs Date Time Temp Pulse Resp B/P (MAP) Pulse Ox O2 Delivery O2 Flow Rate FiO2 12/29/20 19:05 98.0 89 17 118/57 (77) 97 Room Air I&O- Last 24 Hours up to 6 AM 12/30/20 06:00 Intake Total 2740 ml Output Total 906 ml Balance 1834 ml Laboratory Data Labs 24H Laboratory Tests 2 12/29/20 11:53: Bedside Glucose (Misc Panel) 153H 12/29/20 14:08: Anion Gap 6L, Glomerular Filtration Rate > 60.0, Calcium Level 8.0L, Total Bilirubin 0.2#, Aspartate Amino Transf (AST/SGOT) 362H, Alanine Aminotransferase (ALT/SGPT) 577H, Alkaline Phosphatase 208H, Total Protein 5.4L, Albumin 2.1#L, Albumin/Globulin Ratio 0.6L 12/29/20 17:01: Bedside Glucose (Misc Panel) 185H 12/29/20 19:50: Bedside Glucose (Misc Panel) 146H 12/30/20 05:38: Immature Granulocyte % (Auto) 0.9, Neutrophils (%) (Auto) 38.9, Lymphocytes (%) (Auto) 48.6H, Monocytes (%) (Auto) 9.9H, Eosinophils (%) (Auto) 1.1, Basophils (%) (Auto) 0.6, Neutrophils # (Auto) 1.8, Lymphocytes # (Auto) 2.3, Monocytes # (Auto) 0.5, Eosinophils # (Auto) 0.1, Basophils # (Auto) 0.0, Nucleated Red Blood Cells % (auto) 0.0, Anion Gap 9, Glomerular Filtration Rate > 60.0, Calcium Level 8.3L, Total Bilirubin 0.3, Direct Bilirubin 0.1, Aspartate Amino Transf (AST/SGOT) 237H, Alanine Aminotransferase (ALT/SGPT) 482H, Alkaline Phosphatase 202H, Total Protein 5.1L, Albumin 2.1L, Albumin/Globulin Ratio 0.7L CBC/BMP Laboratory Tests 12/29/20 14:08 12/30/20 05:38 FSBS Laboratory Tests Test 12/29/20 11:53 12/29/20 17:01 12/29/20 19:50 Range/Units Bedside Glucose (Misc Panel) 153 185 146 70-105 MG/DL Microbiology Microbiology 12/28/20 Blood Culture - Preliminary, Resulted No growth after 24 hours . All specim... 12/28/20 Blood Culture - Preliminary, Resulted No growth after 24 hours . All specim... Discharge Medications Scheduled Insulin Glargine,Hum.rec.anlog (Basaglar Kwikpen U-100) 100 Unit/1 Ml I nsuln.pen, 40 UNIT SC DAILY, (Reported) Insulin Lispro (Admelog) 100 Unit/1 Ml Vial, 1 DOSE SC AC, (Reported) PER SLIDING SCALE Allergies Coded Allergies: No Known Allergies (Unverified , 09/09/19) Misti Gunn MD Dec 30, 2020 11:03
[2020-12-30 12:42] LABS: HEPATITIS B SURFACE ANTIGEN NEGATIVE (NEGATIVE)
[2020-12-30 13:09] LABS: HEPATITIS C VIRUS ABY INDEX 0.1 INDEX (<0.8)
[2020-12-30 13:10] LABS: HEPATITIS B CORE ANTIBODY IGM NEGATIVE (NEGATIVE)
== END 2020-12-30 12:20 | disposition home or self-care (01) | DRG 420 ==
LOC: M ED 10:32 → M ED INP 15:26 → ENRESERV 19:11 → M ICU 19:48 → M 4MAIN 12-29 18:51
PROVIDERS: ADMIT Internal Medicine Nephrology; ATTEND Internal Medicine Nephrology
DX: E10.10 Type 1 diabetes mellitus with ketoacidosis without coma (principal); U07.1 COVID-19; F17.290 Nicotine dependence, other tobacco product, uncomplicated; R74.01 Elevation of levels of liver transaminase levels; Z79.4 Long term (current) use of insulin

== ENCOUNTER 2022-03-07 22:08 | Emergency (ER) | payer OTHER ==
[~2022-03-07] VITALS: Ht 162.6 cm; Wt 64.7 kg
[2022-03-07 22:50] LABS: BASO # 0.1 10^3/uL (0.0-0.2); BASO % 0.6 % (0.0-1.0); EOS # 0.1 10^3/uL (0.0-0.5); EOS % 0.7 % (0.0-3.0); HEMATOCRIT 39.9 % (36.0-47.0); HEMOGLOBIN 13.4 g/dl (12.0-15.5); LYMPH # 2.5 10^3/uL (1.5-5.0); LYMPH % 19.4 % (24.0-44.0); MEAN CORPUSCULAR HGB CONC 33.6 g/dl (32.0-36.5); MEAN CORPUSCULAR VOLUME 89.5 fl (80.0-96.0); MONO # 0.8 10^3/uL (0.0-0.8); MONO % 6.5 % (2.0-8.0); NEUTROPHILS # 9.4 10^3/uL (1.5-8.5); NEUTROPHILS % 72.3 % (36.0-66.0); PLATELET COUNT, AUTOMATED 345 10^3/uL (150-450); RED BLOOD COUNT 4.46 10^6/uL (4.00-5.40); WHITE BLOOD COUNT 12.9 10^3/uL (4.0-10.0)
[2022-03-07 23:14] LABS: BLOOD UREA NITROGEN 5 MG/DL (9-23); CALCIUM LEVEL 8.9 MG/DL (8.5-10.1); CARBON DIOXIDE LEVEL 21 MMOL/L (20-31); CHLORIDE LEVEL 104 MMOL/L (98-107); CREATININE FOR GFR 0.53 MG/DL (0.55-1.30); GLOMERULAR FILTRATION RATE > 60.0 (>60); GLUCOSE, FASTING 150 MG/DL (60-100); POTASSIUM SERUM 4.1 MMOL/L (3.5-5.1); SODIUM LEVEL 137 MMOL/L (136-145)
[2022-03-07 23:24] LABS: HCG, SERUM QUALITATIVE NEGATIVE (NEGATIVE)
[2022-03-08] VITALS: BP 133/64
== END 2022-03-08 00:08 | disposition home or self-care (01) ==
LOC: M ED 22:08 → EDBD 22:08 → M ED 03-08 00:08
DX: E10.649 Type 1 diabetes mellitus with hypoglycemia without coma (principal); F17.219 Nicotine dependence, cigarettes, with unspecified nicotine-induced disorders

== ENCOUNTER 2022-09-17 08:20 | Inpatient (IN) | payer OTHER ==
[~2022-09-17] VITALS: Ht 162.6 cm; Wt 64.0 kg
[2022-09-17] MEDS ORDERED: NS 1,000 ML IV ONE ×2 (10:15→10:50)
[2022-09-17] MEDS ORDERED: HumuLIN R (REGULAR) INSULIN (NovoLIN R) **100U/ML** PER UNIT IV ONE (10:50)
[2022-09-17 10:57] LABS: VENOUS BASE EXCESS -2.8 (-2.0-2.0); VENOUS HCO3 21.8 MMOL/L (23.0-27.0); VENOUS O2 SATURATION 96.7 % (60.0-80.0); VENOUS PARTIAL PRESSURE CO2 37.2 mmHg (38.0-50.0); VENOUS PARTIAL PRESSURE O2 92.5 mmHg (30.0-50.0); VENOUS PH 7.385 UNITS (7.330-7.430); VENOUS STANDARD HCO3 22.2 MMOL/L; VENOUS TOTAL CO2 22.9 MMOL/L (24.0-28.0)
[2022-09-17 11:06] LABS: BASO # 0.1 10^3/uL (0.0-0.2); BASO % 0.5 % (0.0-1.0); EOS % 0.2 % (0.0-3.0); HEMATOCRIT 39.9 % (36.0-47.0); HEMOGLOBIN 13.5 g/dl (12.0-15.5); LYMPH # 1.5 10^3/uL (1.5-5.0); LYMPH % 8.4 % (24.0-44.0); MEAN CORPUSCULAR HEMOGLOBIN 31.2 pg (27.0-33.0); MEAN CORPUSCULAR HGB CONC 33.8 g/dl (32.0-36.5); MEAN CORPUSCULAR VOLUME 92.1 fl (80.0-96.0); MONO # 0.7 10^3/uL (0.0-0.8); MONO % 3.7 % (2.0-8.0); NEUTROPHILS # 15.6 10^3/uL (1.5-8.5); NEUTROPHILS % 86.6 % (36.0-66.0); PLATELET COUNT, AUTOMATED 302 10^3/uL (150-450); RED BLOOD COUNT 4.33 10^6/uL (4.00-5.40)
[2022-09-17 11:16] LABS: INR 0.92; PARTIAL THROMBOPLASTIN TIME 22.8 SECONDS (24.8-34.2); PROTHROMBIN TIME 12.6 SECONDS (12.5-14.5)
[2022-09-17 11:25] LABS: LIPASE 28 U/L (12-53); OSMOLALITY SERUM 301 MOSM/KG (275-295)
[2022-09-17 11:26] LABS: HCG, SERUM QUALITATIVE POSITIVE (NEGATIVE)
[2022-09-17 11:28] LABS: ACETONE/KETONE 4.22 MMOL/L (0.02-0.27)
[2022-09-17 11:30] LABS: ALBUMIN 3.1 G/DL (3.2-5.2); ALKALINE PHOSPHATASE 111 U/L (46-116); ALT/SGPT 23 U/L (7.0-40); AST/SGOT 11 U/L (<34); BILIRUBIN,DIRECT 0.3 MG/DL (<0.4); BILIRUBIN,TOTAL 0.9 MG/DL (0.3-1.2); BLOOD UREA NITROGEN 17 MG/DL (9-23); CALCIUM LEVEL 8.9 MG/DL (8.5-10.1); CARBON DIOXIDE LEVEL 20 MMOL/L (20-31); CHLORIDE LEVEL 95 MMOL/L (98-107); CREATININE FOR GFR 0.56 MG/DL (0.55-1.30); GLOMERULAR FILTRATION RATE > 60.0 (>60); GLUCOSE, FASTING 545 MG/DL (60-100); MAGNESIUM LEVEL 1.6 MG/DL (1.8-2.4); PHOSPHORUS LEVEL 4.2 MG/DL (2.5-4.9); POTASSIUM SERUM 4.6 MMOL/L (3.5-5.1); SODIUM LEVEL 133 MMOL/L (136-145); TOTAL PROTEIN 6.3 G/DL (5.7-8.2)
[2022-09-17 11:44] LABS: HEMOGLOBIN A1c 8.8 % (4.0-6.0)
[2022-09-17] MEDS ORDERED: ONDANSETRON 4MG 2ML VIAL IV ONE (12:15)
[2022-09-17] MEDS ORDERED: ACETAMINOPHEN 1000MG 100ML IV BAG IV ONE (12:15)
[2022-09-17 12:27] LABS: HCG, SERUM QUANTITATIVE 83820.7 MIU/ML (<4.2)
[2022-09-17] MEDS ORDERED: MED REC IN PROGRESS XX SCH (13:35)
[2022-09-17] MEDS ORDERED: HOME MED LIST COMPLETE! XX SCH (13:45)
[2022-09-17 15:07] LABS: BLOOD UREA NITROGEN 15 MG/DL (9-23); CALCIUM LEVEL 7.7 MG/DL (8.5-10.1); CARBON DIOXIDE LEVEL 19 MMOL/L (20-31); CHLORIDE LEVEL 98 MMOL/L (98-107); CREATININE FOR GFR 0.53 MG/DL (0.55-1.30); GLOMERULAR FILTRATION RATE > 60.0 (>60); GLUCOSE, FASTING 422 MG/DL (60-100); POTASSIUM SERUM 4.4 MMOL/L (3.5-5.1); SODIUM LEVEL 131 MMOL/L (136-145)
[2022-09-17] MEDS ORDERED: LEVEMIR (INSULIN DETEMIR) 1 UNITS/0.01ML SC ONE (15:40)
[2022-09-17] MEDS: INSULIN LISPRO (NovoLOG) PER UNIT SC SCH (16:52)
[2022-09-17 20:03] LABS: BLOOD UREA NITROGEN 14 MG/DL (9-23); CALCIUM LEVEL 8.4 MG/DL (8.5-10.1); CARBON DIOXIDE LEVEL 14 MMOL/L (20-31); CHLORIDE LEVEL 100 MMOL/L (98-107); GLOMERULAR FILTRATION RATE > 60.0 (>60); GLUCOSE, FASTING 333 MG/DL (60-100); POTASSIUM SERUM 4.8 MMOL/L (3.5-5.1); SODIUM LEVEL 135 MMOL/L (136-145)
[2022-09-17] MEDS ORDERED: GLUCOSE 4GM CHEW TABLET PO PRN (20:35)
[2022-09-17] MEDS ORDERED: INSULIN LISPRO (NovoLOG) PER UNIT SC ONE (20:35)
[2022-09-17] MEDS ORDERED: DEXTROSE 50% 50ML SYRINGE IV PRN (20:35)
[2022-09-17] MEDS ORDERED: GLUCAGON INJ 1MG VIAL SC PRN (20:35)
[2022-09-17] MEDS ORDERED: HEPARIN SOD (PORCINE) 5000UNITS/ML 1ML VIAL/SYRINGE SC SCH (21:00)
[2022-09-17] MEDS ORDERED: INSULIN LISPRO (NovoLOG) PER UNIT SC SCH (21:00)
[2022-09-17 21:40] VITALS: BP 119/58; TEMP 98.9; O2SAT 97
[2022-09-18] VITALS (8 sets, daily range): BP systolic 105–126; BP diastolic 59–74; TEMP 97–99; O2SAT 97–98
[2022-09-18 06:45] LABS: HEMATOCRIT 38.4 % (36.0-47.0); MEAN CORPUSCULAR HGB CONC 33.9 g/dl (32.0-36.5); MEAN CORPUSCULAR VOLUME 91.6 fl (80.0-96.0); PLATELET COUNT, AUTOMATED 317 10^3/uL (150-450); RED BLOOD COUNT 4.19 10^6/uL (4.00-5.40)
[2022-09-18 07:26] LABS: BLOOD UREA NITROGEN 13 MG/DL (9-23); CALCIUM LEVEL 8.9 MG/DL (8.5-10.1); CARBON DIOXIDE LEVEL 21 MMOL/L (20-31); CHLORIDE LEVEL 98 MMOL/L (98-107); CREATININE FOR GFR 0.55 MG/DL (0.55-1.30); GLOMERULAR FILTRATION RATE > 60.0 (>60); MAGNESIUM LEVEL 1.5 MG/DL (1.8-2.4); POTASSIUM SERUM 4.9 MMOL/L (3.5-5.1); SODIUM LEVEL 130 MMOL/L (136-145)
[2022-09-18 07:40] LABS: GLUCOSE, FASTING 407 MG/DL (60-100)
[2022-09-18] MEDS: INSULIN LISPRO (NovoLOG) PER UNIT SC SCH ×4 (08:07→20:40)
[2022-09-18] MEDS ORDERED: SODIUM CHLORIDE 0.9% 1000ML IV ONE (08:25)
[2022-09-18] MEDS ORDERED: INSULIN IV RATE CHANGE DOCUMENTATION ML/HR XX SCH (08:35)
[2022-09-18] MEDS ORDERED: NS 1,000 ML IV ONE (09:00)
[2022-09-18] MEDS ORDERED: NS 1,000 ML IV SCH (09:00)
[2022-09-18] MEDS ORDERED: LEVEMIR (INSULIN DETEMIR) 1 UNITS/0.01ML SC SCH (09:00)
[2022-09-18] MEDS ORDERED: LR 1,000 ML IV SCH (09:00)
[2022-09-18 09:18] LABS: ABG BASE EXCESS -7.2 (-2.0-2.0); ABG HCO3 16.7 MMOL/L (22.0-26.0); ABG O2 SATURATION 97.1 % (95.0-99.0); ABG PARTIAL PRESSURE CO2 29.4 mmHg (35.0-45.0); ABG STANDARD HCO3 18.7 MMOL/L. (22.0-26.0); ABG TOTAL CO2 17.6 MMOL/L (22.0-29.0); ABG pH (ARTERIAL) 7.372 UNITS (7.350-7.450)
[2022-09-18 09:36] LABS: HEMOGLOBIN A1c 8.7 % (4.0-6.0)
[2022-09-18] MEDS ORDERED: INSULIN LISPRO (NovoLOG) PER UNIT SC STA (09:38)
[2022-09-18] MEDS: NS 1,000 ML IV SCH ×2 (09:57→10:32)
[2022-09-18 09:59] LABS: BLOOD UREA NITROGEN 13 MG/DL (9-23); CALCIUM LEVEL 8.8 MG/DL (8.5-10.1); CARBON DIOXIDE LEVEL 19 MMOL/L (20-31); CHLORIDE LEVEL 98 MMOL/L (98-107); CREATININE FOR GFR 0.55 MG/DL (0.55-1.30); GLOMERULAR FILTRATION RATE > 60.0 (>60); GLUCOSE, FASTING 367 MG/DL (60-100); POTASSIUM SERUM 4.4 MMOL/L (3.5-5.1); SODIUM LEVEL 130 MMOL/L (136-145)
[2022-09-18] MEDS ORDERED: INSULIN REGULAR IN 0.9 % NACL 100 UNIT in IV 1 EA IV SCH ×2 (10:00)
[2022-09-18] MEDS ORDERED: HumuLIN R (REGULAR) INSULIN (NovoLIN R) **100U/ML** PER UNIT IV ONE (10:00)
[2022-09-18] MEDS: MAG SULF 1GM/100ML (MAG RUN) 1 GM in IV 1 EA IV SCH ×2 (10:30→11:30)
[2022-09-18] MEDS: LEVEMIR (INSULIN DETEMIR) 1 UNITS/0.01ML SC SCH (11:00)
[2022-09-18] MEDS: KCL 20MEQ in NS 1000ML 1,000 ML IV SCH ×3 (11:32→20:39)
[2022-09-18 14:01] LABS: BLOOD UREA NITROGEN 11 MG/DL (9-23); CALCIUM LEVEL 7.9 MG/DL (8.5-10.1); CARBON DIOXIDE LEVEL 21 MMOL/L (20-31); CHLORIDE LEVEL 104 MMOL/L (98-107); CREATININE FOR GFR 0.45 MG/DL (0.55-1.30); GLOMERULAR FILTRATION RATE > 60.0 (>60); GLUCOSE, FASTING 146 MG/DL (60-100); POTASSIUM SERUM 4.2 MMOL/L (3.5-5.1); SODIUM LEVEL 135 MMOL/L (136-145)
[2022-09-18] MEDS ORDERED: ACETAMINOPHEN 325 MG TAB PO PRN (21:25)
[2022-09-19] MEDS: KCL 20MEQ in NS 1000ML 1,000 ML IV SCH ×2 (01:43→06:28)
[2022-09-19 03:56] VITALS: BP 106/71; TEMP 97; O2SAT 98
[2022-09-19 05:10] LABS: BLOOD UREA NITROGEN 10 MG/DL (9-23); CALCIUM LEVEL 7.6 MG/DL (8.5-10.1); CARBON DIOXIDE LEVEL 22 MMOL/L (20-31); CHLORIDE LEVEL 108 MMOL/L (98-107); CREATININE FOR GFR 0.45 MG/DL (0.55-1.30); GLOMERULAR FILTRATION RATE > 60.0 (>60); GLUCOSE, FASTING 51 MG/DL (60-100); MAGNESIUM LEVEL 1.5 MG/DL (1.8-2.4); POTASSIUM SERUM 4.2 MMOL/L (3.5-5.1); SODIUM LEVEL 137 MMOL/L (136-145)
[2022-09-19] MEDS: MAG SULF 1GM/100ML (MAG RUN) 1 GM in IV 1 EA IV SCH ×2 (05:37→06:27)
[2022-09-19] MEDS: INSULIN LISPRO (NovoLOG) PER UNIT SC SCH ×2 (07:30)
[2022-09-19 08:00] VITALS: BP 128/78; TEMP 98.7; O2SAT 99
[2022-09-19] MEDS ORDERED: NIFEdipine 30MG XL TAB PO STA (08:09)
[2022-09-19] MEDS: LEVEMIR (INSULIN DETEMIR) 1 UNITS/0.01ML SC SCH (09:50)
[2022-09-19] MEDS ORDERED: LEVEMIR (INSULIN DETEMIR) 1 UNITS/0.01ML SC SCH (10:05)
[2022-09-19] MEDS ORDERED: BASA100I SC (11:28)
[2022-09-19] MEDS ORDERED: PEN1MIS21 SC (11:31)
[2022-09-19] MEDS ORDERED: ALCOPAD25 TOP (11:31)
[2022-09-19] MEDS ORDERED: BLOOKIT21 XX (11:31)
[2022-09-19] MEDS ORDERED: LANC30MI XX (11:31)
[2022-09-19] MEDS ORDERED: GLUC1TES2 XX (11:31)
== END 2022-09-19 12:46 | disposition home or self-care (01) | DRG 566 ==
LOC: M ED 08:20 → M ED INP 08:21 → M PED 21:40 → M ICU 09-18 10:15 → OBSVTOIN 09-19 07:32
PROVIDERS: ADMIT Internal Medicine; ATTEND Internal Medicine
DX: O24.011 Pre-existing type 1 diabetes mellitus, in pregnancy, first trimester (principal); E10.10 Type 1 diabetes mellitus with ketoacidosis without coma; E83.42 Hypomagnesemia; E83.39 Other disorders of phosphorus metabolism; E10.65 Type 1 diabetes mellitus with hyperglycemia; E86.0 Dehydration; O99.331 Smoking (tobacco) complicating pregnancy, first trimester; F17.200 Nicotine dependence, unspecified, uncomplicated; Z3A.10 10 weeks gestation of pregnancy; O99.281 Endocrine, nutritional and metabolic diseases complicating pregnancy, first trimester; T38.3X6A Underdosing of insulin and oral hypoglycemic [antidiabetic] drugs, initial encounter; O21.1 Hyperemesis gravidarum with metabolic disturbance; Z91.148 Patient's other noncompliance with medication regimen for other reason; Z79.4 Long term (current) use of insulin

== ENCOUNTER → 2022-10-09 | Outpatient (REF) | payer OTHER ==
[~2022-10-09] MED LIST changes: +ALCOPAD25 TOP; +BLOOKIT21 XX; +GLUC1TES2 XX; +LANC30MI XX; +PEN1MIS21 SC
== END ==
LOC: M PLALAB 11:16
PROVIDERS: ATTEND Obstetrics & Gynecology
DX: O09.292 Supervision of pregnancy with other poor reproductive or obstetric history, second trimester (principal)

== ENCOUNTER 2022-12-09 13:23 | Emergency (ER) | payer OTHER ==
[~2022-12-09] VITALS: Ht 162.6 cm; Wt 67.3 kg
[~2022-12-09 13:23] MED LIST changes: +CEPH500C PO; +ONDA4TAB6 PO; +PEN-308 SC; -PEN1MIS21 SC
[2022-12-09 16:32] VITALS: BP 133/75; TEMP 98.9; O2SAT 100
== END 2022-12-09 16:35 | disposition home or self-care (01) ==
LOC: M ED 13:23
DX: O9A.212 Injury, poisoning and certain other consequences of external causes complicating pregnancy, second trimester (principal); S61.012A Laceration without foreign body of left thumb without damage to nail, initial encounter; W26.8XXA Contact with other sharp object(s), not elsewhere classified, initial encounter; Y92.89 Other specified places as the place of occurrence of the external cause; Y93.89 Activity, other specified; Y99.0 Civilian activity done for income or pay; O99.332 Smoking (tobacco) complicating pregnancy, second trimester; F17.290 Nicotine dependence, other tobacco product, uncomplicated; Z3A.24 24 weeks gestation of pregnancy

== ENCOUNTER 2023-02-13 09:17 | Outpatient (CLI) | payer OTHER ==
[~2023-02-13] VITALS: Ht 162.6 cm; Wt 78.3 kg
[2023-02-13] VITALS (27 sets, daily range): BP systolic 145–187; BP diastolic 82–105
[2023-02-13] MEDS: MAG Sulf (OBGYN) 20GM/500ML 20,000 MG in IV 1 EA IV SCH ×2 (09:35→11:10)
[2023-02-13] MEDS ORDERED: MAG Sulf (L&D) 4 GM/100 ML 4 GM in IV 1 EA IV ONE (09:35)
[2023-02-13] MEDS ORDERED: LABETALOL 100MG/20ML VIAL IV ONE (09:35)
[2023-02-13] MEDS ORDERED: LR 1,000 ML IV SCH (09:45)
[2023-02-13] MEDS ORDERED: BETAMETHASONE SOLUSPAN 6MG/ML 5ML VIAL IM SCH (10:00)
[2023-02-13] MEDS ORDERED: DIBUCAINE 1% OINTMENT 30GM TOP PRN (10:20)
[2023-02-13 10:30] LABS: HEMATOCRIT 35.4 % (36.0-47.0); HEMOGLOBIN 12.4 g/dl (12.0-15.5); MEAN CORPUSCULAR HEMOGLOBIN 30.7 pg (27.0-33.0); MEAN CORPUSCULAR VOLUME 87.6 fl (80.0-96.0); PLATELET COUNT, AUTOMATED 108 10^3/uL (150-450); RED BLOOD COUNT 4.04 10^6/uL (4.00-5.40); WHITE BLOOD COUNT 12.2 10^3/uL (4.0-10.0)
[2023-02-13] MEDS ORDERED: LABETALOL 100MG/20ML VIAL IV STA (10:32)
[2023-02-13 10:58] LABS: LDH LACTATE DEHYDROGENASE 459 U/L (120-246)
[2023-02-13 10:59] LABS: ALT/SGPT 198 U/L (7.0-40); AST/SGOT 202 U/L (<34); BILIRUBIN,TOTAL 0.7 MG/DL (0.3-1.2); CREATININE FOR GFR 0.61 MG/DL (0.55-1.30); GLOMERULAR FILTRATION RATE > 60.0 (>60)
[2023-02-13 11:01] LABS: URIC ACID 5.1 MG/DL (3.1-7.8)
[2023-02-13 11:56] LABS: TOTAL PROTEIN,RANDOM URINE 49.1 MG/DL (0.0-14.0)
== END 2023-02-13 14:00 | disposition other institution (70) ==
LOC: M LDO 09:17
PROVIDERS: ATTEND Advanced Practice Midwife
DX: O14.23 HELLP syndrome (HELLP), third trimester (principal); O36.5930 Maternal care for other known or suspected poor fetal growth, third trimester, not applicable or unspecified; O24.013 Pre-existing type 1 diabetes mellitus, in pregnancy, third trimester; Z79.4 Long term (current) use of insulin; O34.219 Maternal care for unspecified type scar from previous cesarean delivery; O09.33 Supervision of pregnancy with insufficient antenatal care, third trimester; Z87.51 Personal history of pre-term labor; Z3A.31 31 weeks gestation of pregnancy; O99.333 Smoking (tobacco) complicating pregnancy, third trimester; F17.200 Nicotine dependence, unspecified, uncomplicated; O32.1XX9 Maternal care for breech presentation, other fetus
CPT/HCPCS: 59025; 82247; 82570; 83615; 84156; 84450; 84460; 84550; 85027; 96365; 96372; 96374; 96376; G0463; J0702; J1920; J3475

== ENCOUNTER 2024-03-05 06:37 | Inpatient (IN) | payer OTHER ==
[~2024-03-05] VITALS: Ht 162.6 cm; Wt 55.5 kg
[~2024-03-05 06:37] MED LIST changes: +ONDA-282 PO; -ONDA4TAB6 PO
[2024-03-05 07:27] LABS: VENOUS BASE EXCESS -17.3 (-2.0-2.0); VENOUS HCO3 11.1 MMOL/L (23.0-27.0); VENOUS O2 SATURATION 70.9 % (60.0-80.0); VENOUS PARTIAL PRESSURE CO2 35.2 mmHg (38.0-50.0); VENOUS PARTIAL PRESSURE O2 47.6 mmHg (30.0-50.0); VENOUS PH 7.117 UNITS (7.330-7.430); VENOUS STANDARD HCO3 11.3 MMOL/L; VENOUS TOTAL CO2 12.2 MMOL/L (24.0-28.0)
[2024-03-05 07:28] LABS: BASO # 0.1 10^3/uL (0.0-0.2); EOS # 0.1 10^3/uL (0.0-0.5); EOS % 0.5 % (0.0-3.0); HEMATOCRIT 44.1 % (36.0-47.0); HEMOGLOBIN 13.8 g/dl (12.0-15.5); LYMPH # 1.8 10^3/uL (1.5-5.0); LYMPH % 12.3 % (24.0-44.0); MEAN CORPUSCULAR HEMOGLOBIN 29.7 pg (27.0-33.0); MEAN CORPUSCULAR HGB CONC 31.3 g/dl (32.0-36.5); MEAN CORPUSCULAR VOLUME 94.8 fl (80.0-96.0); MONO # 0.7 10^3/uL (0.0-0.8); MONO % 4.9 % (2.0-8.0); NEUTROPHILS # 11.7 10^3/uL (1.5-8.5); NEUTROPHILS % 80.1 % (36.0-66.0); PLATELET COUNT, AUTOMATED 477 10^3/uL (150-450); RED BLOOD COUNT 4.65 10^6/uL (4.00-5.40); WHITE BLOOD COUNT 14.6 10^3/uL (4.0-10.0)
[2024-03-05 07:53] LABS: LIPASE 31 U/L (12-53)
[2024-03-05 07:59] LABS: KETONE, URINE AUTO RFX 2+ mg/dL (NEGATIVE); LEUKOCYTE ESTERASE UR AUTO RFX NEGATIVE (NEGATIVE); MUCUS, URINE RFX SMALL (NEGATIVE); NITRITE, URINE AUTO RFX NEGATIVE (NEGATIVE); RBC, URINE AUTO RFX 0 /HPF (0-3); SQUAM EPITHELIAL CELL UR AURFX 4 /HPF (0-6); WBC, URINE AUTO RFX 0 /HPF (0-3)
[2024-03-05 08:13] LABS: ACETONE/KETONE > 4.50 MMOL/L (0.02-0.27); ALBUMIN 4.2 G/DL (3.2-5.2); ALKALINE PHOSPHATASE 159 U/L (35-104); ALT/SGPT 54 U/L (7.0-40); AST/SGOT 30 U/L (<34); BILIRUBIN,DIRECT 0.2 MG/DL (<0.4); BILIRUBIN,TOTAL 0.8 MG/DL (0.3-1.2); BLOOD UREA NITROGEN 27 MG/DL (9-23); CALCIUM LEVEL 10.1 MG/DL (8.5-10.1); CARBON DIOXIDE LEVEL 12 MMOL/L (20-31); CHLORIDE LEVEL 95 MMOL/L (98-107); CREATININE FOR GFR 0.83 MG/DL (0.55-1.30); GLOMERULAR FILTRATION RATE > 60.0 (>60); GLUCOSE, FASTING 654 MG/DL (60-100); POTASSIUM SERUM 5.6 MMOL/L (3.5-5.1); SODIUM LEVEL 132 MMOL/L (136-145); TOTAL PROTEIN 7.7 G/DL (5.7-8.2)
[2024-03-05] MEDS ORDERED: INSU100I24 (08:20)
[2024-03-05] MEDS: NS (Normal Saline) 0.9% 1,000 ML IV ONE ×2 (08:24→09:45)
[2024-03-05] MEDS: HumuLIN R (REGULAR) INSULIN (NovoLIN R) **100U/ML** PER UNIT IV ONE (08:25)
[2024-03-05] MEDS ORDERED: INSULIN IV RATE CHANGE DOCUMENTATION ML/HR XX SCH (08:25)
[2024-03-05] MEDS: INSULIN REGULAR IN 0.9 % NACL 100 UNIT in IV 1 EA IV SCH (08:35)
[2024-03-05 09:11] LABS: OSMOLALITY SERUM 324 MOSM/KG (275-295)
[2024-03-05] MEDS ORDERED: HOME MED LIST COMPLETE! XX SCH (09:55)
[2024-03-05 10:11] LABS: HEMOGLOBIN A1c 8.1 % (4.0-6.0)
[2024-03-05] MEDS ORDERED: D5W/0.9% SODIUM CHLORIDE 1,000 ML IV SCH (11:40)
[2024-03-05] MEDS ORDERED: INSULIN REGULAR IN 0.9 % NACL 100 UNIT in IV 1 EA IV SCH (11:45)
[2024-03-05] MEDS: D5W/0.9% SODIUM CHLORIDE 1,000 ML IV SCH (11:50)
[2024-03-05] MEDS: ENOXAPARIN 40MG/0.4ML SYRINGE (J1650 PER 10MG) SC SCH (11:58)
[2024-03-05] MEDS: LR 1,000 ML IV ONE ×2 (12:11→13:58)
[2024-03-05 12:52] VITALS: BP 113/57; TEMP 97.7; O2SAT 100
[2024-03-05 13:07] LABS: VENOUS BASE EXCESS -9.4 (-2.0-2.0); VENOUS HCO3 16.1 MMOL/L (23.0-27.0); VENOUS O2 SATURATION 99.1 % (60.0-80.0); VENOUS PARTIAL PRESSURE CO2 33.6 mmHg (38.0-50.0); VENOUS PARTIAL PRESSURE O2 231.3 mmHg (30.0-50.0); VENOUS PH 7.298 UNITS (7.330-7.430); VENOUS TOTAL CO2 17.1 MMOL/L (24.0-28.0)
[2024-03-05 13:47] LABS: BLOOD UREA NITROGEN 21 MG/DL (9-23); CALCIUM LEVEL 8.2 MG/DL (8.5-10.1); CARBON DIOXIDE LEVEL 18 MMOL/L (20-31); CHLORIDE LEVEL 108 MMOL/L (98-107); CREATININE FOR GFR 0.69 MG/DL (0.55-1.30); GLOMERULAR FILTRATION RATE > 60.0 (>60); GLUCOSE, FASTING 163 MG/DL (60-100); POTASSIUM SERUM 4.5 MMOL/L (3.5-5.1); SODIUM LEVEL 139 MMOL/L (136-145)
[2024-03-05] MEDS: INSULIN IV RATE CHANGE DOCUMENTATION ML/HR XX SCH (14:27)
[2024-03-05 16:00] VITALS: BP 105/53; TEMP 98.8; O2SAT 97
[2024-03-05 16:51] LABS: VENOUS BASE EXCESS -3.2 (-2.0-2.0); VENOUS HCO3 20.6 MMOL/L (23.0-27.0); VENOUS O2 SATURATION 98.8 % (60.0-80.0); VENOUS PARTIAL PRESSURE CO2 32.7 mmHg (38.0-50.0); VENOUS PH 7.417 UNITS (7.330-7.430); VENOUS STANDARD HCO3 21.8 MMOL/L; VENOUS TOTAL CO2 21.6 MMOL/L (24.0-28.0)
[2024-03-05 17:26] LABS: BLOOD UREA NITROGEN 15 MG/DL (9-23); CALCIUM LEVEL 7.9 MG/DL (8.5-10.1); CARBON DIOXIDE LEVEL 22 MMOL/L (20-31); CHLORIDE LEVEL 110 MMOL/L (98-107); CREATININE FOR GFR 0.57 MG/DL (0.55-1.30); GLOMERULAR FILTRATION RATE > 60.0 (>60); GLUCOSE, FASTING 81 MG/DL (60-100); POTASSIUM SERUM 3.9 MMOL/L (3.5-5.1); SODIUM LEVEL 140 MMOL/L (136-145)
== END 2024-03-05 17:09 | disposition left against medical advice (07) | DRG 420 ==
LOC: M ED 06:37 → M ED INP 11:39 → M ICU 12:33
PROVIDERS: ADMIT Internal Medicine Critical Care Medicine; ATTEND Internal Medicine Critical Care Medicine
DX: E10.10 Type 1 diabetes mellitus with ketoacidosis without coma (principal); F17.290 Nicotine dependence, other tobacco product, uncomplicated; Z91.411 Personal history of adult psychological abuse; T38.3X6A Underdosing of insulin and oral hypoglycemic [antidiabetic] drugs, initial encounter

== ENCOUNTER 2024-06-04 07:59 | Inpatient (IN) | payer MEDICAID, OTHER ==
[2024-06-04] VITALS (7 sets, daily range): BP systolic 107–114; BP diastolic 54–66; TEMP 97–97.2; O2SAT 99–100
[~2024-06-04] VITALS: Ht 162.6 cm; Wt 50.0 kg
[~2024-06-04 07:59] MED LIST changes: +INSU100I24
[2024-06-04 08:52] LABS: VENOUS BASE EXCESS -15.8 (-2.0-2.0); VENOUS HCO3 9.8 MMOL/L (23.0-27.0); VENOUS O2 SATURATION 89.8 % (60.0-80.0); VENOUS PARTIAL PRESSURE CO2 24.5 mmHg (38.0-50.0); VENOUS PARTIAL PRESSURE O2 69.5 mmHg (30.0-50.0); VENOUS PH 7.222 UNITS (7.330-7.430); VENOUS STANDARD HCO3 12.8 MMOL/L; VENOUS TOTAL CO2 10.6 MMOL/L (24.0-28.0)
[2024-06-04 08:55] LABS: BASO # 0.2 10^3/uL (0.0-0.2); BASO % 1.4 % (0.0-1.0); EOS # 0.1 10^3/uL (0.0-0.5); HEMATOCRIT 46.5 % (36.0-47.0); HEMOGLOBIN 15.2 g/dl (12.0-15.5); LYMPH # 2.9 10^3/uL (1.5-5.0); LYMPH % 25.9 % (24.0-44.0); MEAN CORPUSCULAR HEMOGLOBIN 28.7 pg (27.0-33.0); MEAN CORPUSCULAR HGB CONC 32.7 g/dl (32.0-36.5); MEAN CORPUSCULAR VOLUME 87.9 fl (80.0-96.0); MONO # 0.6 10^3/uL (0.0-0.8); MONO % 5.6 % (2.0-8.0); NEUTROPHILS # 7.2 10^3/uL (1.5-8.5); NEUTROPHILS % 65.4 % (36.0-66.0); PLATELET COUNT, AUTOMATED 337 10^3/uL (150-450); RED BLOOD COUNT 5.29 10^6/uL (4.00-5.40); WHITE BLOOD COUNT 11.1 10^3/uL (4.0-10.0)
[2024-06-04] MEDS: diphenhydrAMINE 50MG/ML VIAL IV ONE (09:19)
[2024-06-04] MEDS: HALOPERIDOL LACTATE 5MG/ML VIAL IV ONE (09:19)
[2024-06-04] MEDS: NS (Normal Saline) 0.9% 1,000 ML IV ONE ×2 (09:20→11:18)
[2024-06-04 09:22] LABS: LIPASE 30 U/L (12-53)
[2024-06-04 09:30] LABS: ACETONE/KETONE > 4.50 MMOL/L (0.02-0.27); ALBUMIN 4.4 G/DL (3.2-5.2); ALKALINE PHOSPHATASE 111 U/L (35-104); ALT/SGPT 24 U/L (7.0-40); AST/SGOT 29 U/L (<34); BILIRUBIN,DIRECT 0.2 MG/DL (<0.4); BILIRUBIN,TOTAL 0.6 MG/DL (0.3-1.2); BLOOD UREA NITROGEN 15 MG/DL (9-23); CALCIUM LEVEL 9.7 MG/DL (8.5-10.1); CARBON DIOXIDE LEVEL 11 MMOL/L (20-31); CHLORIDE LEVEL 98 MMOL/L (98-107); CREATININE FOR GFR 0.66 MG/DL (0.55-1.30); GLOMERULAR FILTRATION RATE > 90.0 (>60); GLUCOSE, FASTING 456 MG/DL (60-100); POTASSIUM SERUM 5.6 MMOL/L (3.5-5.1); SODIUM LEVEL 131 MMOL/L (136-145); TOTAL PROTEIN 7.7 G/DL (5.7-8.2)
[2024-06-04 09:33] LABS: OSMOLALITY SERUM 321 MOSM/KG (275-295)
[2024-06-04] MEDS ORDERED: ISOVUE-370 76% 100ML VIAL As Ordered ONE (09:45)
[2024-06-04] MEDS ORDERED: INSULIN IV RATE CHANGE DOCUMENTATION ML/HR XX SCH ×2 (09:45→12:40)
[2024-06-04 09:52] LABS: HEMOGLOBIN A1c 11.1 % (4.0-6.0)
[2024-06-04] MEDS: INSULIN REGULAR IN 0.9 % NACL 100 UNIT in IV 1 EA IV SCH (09:55)
[2024-06-04] MEDS ORDERED: MED REC IN PROGRESS XX SCH (10:10)
[2024-06-04] MEDS ORDERED: INSUN SC (10:53)
[2024-06-04] MEDS ORDERED: HOME MED LIST COMPLETE! XX SCH (10:55)
[2024-06-04 11:10] LABS: KETONE, URINE AUTO RFX 2+ mg/dL (NEGATIVE); LEUKOCYTE ESTERASE UR AUTO RFX NEGATIVE (NEGATIVE); MUCUS, URINE RFX SMALL (NEGATIVE); NITRITE, URINE AUTO RFX NEGATIVE (NEGATIVE); RBC, URINE AUTO RFX 0 /HPF (0-3); SQUAM EPITHELIAL CELL UR AURFX 1 /HPF (0-6); WBC, URINE AUTO RFX 0 /HPF (0-3)
[2024-06-04] MEDS ORDERED: INSULIN REGULAR IN 0.9 % NACL 100 UNIT in IV 1 EA IV SCH (12:40)
[2024-06-04 14:08] LABS: BLOOD UREA NITROGEN 14 MG/DL (9-23); CALCIUM LEVEL 8.3 MG/DL (8.5-10.1); CARBON DIOXIDE LEVEL 14 MMOL/L (20-31); CHLORIDE LEVEL 106 MMOL/L (98-107); CREATININE FOR GFR 0.67 MG/DL (0.55-1.30); GLOMERULAR FILTRATION RATE > 90.0 (>60); GLUCOSE, FASTING 225 MG/DL (60-100); MAGNESIUM LEVEL 1.8 MG/DL (1.8-2.4); PHOSPHORUS LEVEL 3.6 MG/DL (2.5-4.9); POTASSIUM SERUM 4.9 MMOL/L (3.5-5.1); SODIUM LEVEL 137 MMOL/L (136-145)
[2024-06-04] MEDS: D5W/0.45% SODIUM CHLORIDE 1,000 ML IV SCH (14:45)
[2024-06-04] MEDS: ENOXAPARIN 40MG/0.4ML SYRINGE (J1650 PER 10MG) SC SCH (15:35)
[2024-06-04] MEDS: KCL 40MEQ IN D5/0.45NS 1000ML 1,000 ML IV SCH (16:11)
[2024-06-04 17:35] LABS: BLOOD UREA NITROGEN 11 MG/DL (9-23); CARBON DIOXIDE LEVEL 16 MMOL/L (20-31); CHLORIDE LEVEL 106 MMOL/L (98-107); CREATININE FOR GFR 0.58 MG/DL (0.55-1.30); GLOMERULAR FILTRATION RATE > 90.0 (>60); GLUCOSE, FASTING 174 MG/DL (60-100); PHOSPHORUS LEVEL 3.7 MG/DL (2.5-4.9); POTASSIUM SERUM 4.7 MMOL/L (3.5-5.1); SODIUM LEVEL 135 MMOL/L (136-145)
[2024-06-04] MEDS: LanTUS (INSULIN GLARGINE INJ) 1 UNITS/0.01 ML SC ONE (18:25)
[2024-06-05] MEDS ORDERED: PANTOPRAZOLE 40MG TAB (PROTONIX) PO SCH (09:00)
== END 2024-06-04 20:11 | disposition left against medical advice (07) | DRG 420 ==
LOC: M ED 07:59 → UNDOADMOB 08:00 → M ED INP 08:00 → OBSVTOIN 12:37 → M ED INP 12:37 → M ICU 14:10 → M ED INP 14:10 → UNDODISOB 20:11
PROVIDERS: ADMIT Internal Medicine Pulmonary Disease; ATTEND Internal Medicine Pulmonary Disease
DX: E10.10 Type 1 diabetes mellitus with ketoacidosis without coma (principal); K31.84 Gastroparesis; E10.43 Type 1 diabetes mellitus with diabetic autonomic (poly)neuropathy; F17.290 Nicotine dependence, other tobacco product, uncomplicated; Z79.4 Long term (current) use of insulin; B34.8 Other viral infections of unspecified site

== ENCOUNTER → 2024-10-04 | Outpatient (REF) | payer OTHER, MEDICAID ==
[~2024-10-04] MED LIST changes: +INSUN SC
== END ==
LOC: M LAB REF 17:39
PROVIDERS: ATTEND Physician Assistant Medical
DX: J02.9 Acute pharyngitis, unspecified (principal)

== ENCOUNTER 2025-02-08 17:39 | Emergency (ER) | payer OTHER ==
[~2025-02-08] VITALS: Ht 162.6 cm; Wt 62.0 kg
[2025-02-08 18:15] LABS: VENOUS BASE EXCESS -1.9 (-2.0-2.0); VENOUS HCO3 23.6 MMOL/L (23.0-27.0); VENOUS O2 SATURATION 88.4 % (60.0-80.0); VENOUS PARTIAL PRESSURE CO2 43.0 mmHg (38.0-50.0); VENOUS PARTIAL PRESSURE O2 59.0 mmHg (30.0-50.0); VENOUS PH 7.358 UNITS (7.330-7.430); VENOUS STANDARD HCO3 22.7 MMOL/L; VENOUS TOTAL CO2 25.0 MMOL/L (24.0-28.0)
[2025-02-08 18:17] LABS: BASO # 0.1 10^3/uL (0.0-0.2); BASO % 0.9 % (0.0-1.0); EOS # 0.1 10^3/uL (0.0-0.5); EOS % 0.7 % (0.0-3.0); LYMPH # 3.2 10^3/uL (1.5-5.0); LYMPH % 29.5 % (24.0-44.0); MONO # 0.6 10^3/uL (0.0-0.8); MONO % 5.5 % (2.0-8.0); NEUTROPHILS # 6.8 10^3/uL (1.5-8.5); NEUTROPHILS % 63.0 % (36.0-66.0); PLATELET COUNT, AUTOMATED 429 10^3/uL (150-450)
[2025-02-08] MEDS: NS (Normal Saline) 0.9% 1,000 ML IV ONE (18:41)
[2025-02-08 18:46] LABS: ALT/SGPT 18.0 U/L (7.0-40); AST/SGOT 20.0 U/L (<34)
[2025-02-08 18:48] LABS: ACETONE/KETONE 0.51 MMOL/L (0.02-0.27)
[2025-02-08 19:00] LABS: OSMOLALITY SERUM 295.0 MOSM/KG (275-295)
[2025-02-08 19:17] LABS: ESTIMATED AVERAGE GLUCOSE 283.0 MG/DL (60-110)
[2025-02-08] MEDS ORDERED: LANTINJ4 SC (19:38)
[2025-02-08] MEDS ORDERED: NOVOINJ3 SC (19:38)
[2025-02-08 20:00] VITALS: TEMP 97.6; O2SAT 97
[2025-02-08 20:22] VITALS: BP 108/64
== END 2025-02-08 20:20 | disposition home or self-care (01) ==
LOC: M ED 18:28
DX: E11.65 Type 2 diabetes mellitus with hyperglycemia (principal); M54.50 Low back pain, unspecified; F17.290 Nicotine dependence, other tobacco product, uncomplicated; Z79.4 Long term (current) use of insulin